=== PATIENT | male | born 1955 | race African-American/Black ===

== ENCOUNTER 2021-09-28 08:09 | Emergency (ER) | payer MEDICARE, MEDICAID, SELFPAY ==
--- NOTE | 2021-09-28 | ECG_ITS ---
Test Reason : chest pain Blood Pressure : / mmHG Vent. Rate : 107 BPM Atrial Rate : 357 BPM P-R Int : 000 ms QRS Dur : 084 ms QT Int : 344 ms P-R-T Axes : -43 -57 128 degrees QTc Int : 459 ms Atrial flutter with variable A-V block with premature ventricular or aberrantly conducted complexes Left axis deviation Inferior infarct , age undetermined Possible Anterior infarct , age undetermined ST & T wave abnormality, consider lateral ischemia Abnormal ECG No previous ECGs available Referred By: Jaclyn Huntley Electronically Signed By:JAIME ARNDT MD
--- NOTE | ~2021-09-28 | XR_ITS ---
EXAMINATION: XR CHEST CLINICAL INFORMATION: Chest pain. COMPARISON: None TECHNIQUE: Portable AP view of the chest was obtained. XR/XR chest 1V FINDINGS/IMPRESSION: The study is limited by portable technique, suboptimal inspiration, and overlying leads. Linear at the left base is felt more likely to represent atelectasis and/or fibrotic change rather than infiltrate. No infiltrate, effusion, or pneumothorax is appreciated as such. The cardiac silhouette is poorly evaluated. The aorta is mildly atherosclerotic. Mediastinum, diaphragm and soft tissues appear unremarkable. Surgical clips project over the right upper quadrant. The patient is status post metallic fixation plate and screw placement across the distal left clavicle.
[2021-09-28 08:21] VITALS: BP 172/101; BP 175/102; PULSE 103; PULSE 113; RESP 16; TEMP 36.2; O2SAT 97; BMI 18.3
--- NOTE | 2021-09-28 08:43 | ED.CHESTPAIN ---
HPI - Chest Pain General Chief Complaint: Chest Pain Stated Complaint: CP DURING DIALYSIS,2/3 OF DIALYSIS COMP PER EMS Time Seen by Provider: 09/28/21 08:37 Source: patient Mode of arrival: EMS Limitations: other (poor historian) History of Present Illness HPI narrative: 66 yo male hx of afib, HTN, STEMI in past, ESRD on HD MWF, chronic back pain was undergoing HD today completed 2/3 when he c/o chest pain - he cannot tell me much about the chest pain. He seems upset he is here. EMS notes he is at his baseline per HD center. Was given nitro SL with EMS with some improvement. MD complaint: chest pain Pertinent past history: coronary artery disease and prior [place] Onset (ago): minute(s) (prior to arrival ) Timing of current episode: other (improving) Prior episodes: Yes Onset: during rest Pain location: substernal (points to middle of his chest) Pain radiation: none Severity: mild Quality: other ( Pain ) Relieving factors: nitroglycerin (unsure but states it might have helped) Exacerbating factors: nothing Associated symptoms: other (patient denies, does state he doesn't normally have chest pain during HD) Treatment prior to arrival: nitroglycerin Related Data Allergies Allergy/AdvReac Type Severity Reaction Status Date / Time No Known Allergies Allergy Verified 09/28/21 08:34 Review of Systems Review of Systems: ROS unable to be obtained due to pateint being poor historian seems upset he is here PMF Past Medical History Source: old records reviewed Medical History Acute CVA (cerebrovascular accident) Afib Anemia BPH (benign prostatic hyperplasia) Chronic back pain ESRD (end stage renal disease) HTN (hypertension) Opiate dependence Pneumothorax Pulmonary hypertension STEMI (ST elevation myocardial infarction) Surgical History H/O splenectomy Hx of cholecystectomy Social History Social History (Updated 09/28/21 @ 08:45 by Jaclyn Huntley DO) Alcohol intake: former Patient Tobacco Use Status: Former Tobacco user Use of substances other than those prescribed or required for medical reasons: Unknown Advance Directives: No Advance Directives Information Provided: No Physical Exam Vital Signs: Vital Signs: Last Vital Signs Temp 97.2 F 09/28/21 08:21 Pulse 93 09/28/21 11:38 Resp 18 09/28/21 11:38 BP 156/109 H 09/28/21 11:38 Pulse Ox 96 09/28/21 11:38 O2 Del Method 09/28/21 11:38 BMI result Body Mass Index 18.3 Appearance: Alert. Oriented to self. No acute distress. Upset and appears angry he is here, watching TV had to be asked questions repeatedly EMS states he is at his baseline mentation. Eyes: Pupils equal, round and reactive to light. ENT: Pharynx normal. Neck: Normal inspection. Neck supple. CVS: Normal heart rate and rhythm. Pulses normal. Respiratory: No respiratory distress. Breath sounds normal. Abdomen: Soft and non-tender. Skin: Skin warm and dry. Normal skin color. Normal skin turgor. Extremities: No lower extremity edema. No calf ttp Neuro: Oriented X to self. Will not participate otherwise in exam. Course Course Course Narrative: repeat trop flat, atypical pain patient in no distress eating and watching [place] [facility] [place] wave inversions in lateral leads may 2021 no changes on today's EKG Procedures EJ/Peripheral Line Arm R: Time Out Performed: Yes Skin Cleansed in Sterile Fashion: Yes Size (gauge): 20 IV Secured and Dressing Applied: Yes Patient Tolerated Procedure: well and no complications MDM - Chest Pain MDM Narrative Medical decision making narrative: 66 yo male hx of afib, HTN, STEMI in past, ESRD on HD MWF, chronic back pain here with c/o vague chest pain during HD today did complete 2/3 at this time will need troponin x 2, nitro paste given BP and pain, EKG, CXR. Dispo per results and findings. Lab Data Result diagrams: 09/28/21 09:11 09/28/21 11:36 Labs: Lab Results 09/28/21 09/28/21 09/28/21 Range/Units 09:11 09:11 09:11 WBC 9.5 (4.8-10.8) X10*3/uL RBC 4.54 L (4.60-5.80) X10*6/uL Hgb 12.5 L (14.0-18.0) g/dl Hct 37.8 L (42.0-52.0) % MCV 83.3 (80.0-98.0) fL MCH 27.5 (27.0-33.0) pg MCHC 33.1 (31.0-36.0) g/dl RDW 14.5 (11.0-16.0) % Plt Count 280 (160-400) X10*3/uL MPV 10.9 (9.4-12.4) fL Immature Gran % (Auto) 0.2 (0.0-0.4) % Neut % (Auto) 78.4 H (45-73) % Lymph % (Auto) 13.3 L (20-40) % Webb % (Auto) 7.5 (2-11) % Eos % (Auto) 0.4 (0-4) % Baso % (Auto) 0.2 (0-2) % Lymph # (Auto) 1.3 (1.2-4.9) X10*3/uL Webb # (Auto) 0.7 (0.1-1.2) X10*3/uL Eos # (Auto) 0.0 (0.0-0.4) X10*3/uL Baso # (Auto) 0.0 (0.0-0.2) X10*3/uL Abs Immat Gran (auto) 0.02 (0.00-0.03) X10*3/uL Absolute Neuts (auto) 7.5 (2.0-8.3) x10*3/uL Absolute Nucleated RBC 0.000 (0.0-0.012) X10*3/uL Nucleated RBC % (auto) 0.0 (0.0-0.2) /100WBC PT 16.3 H (9.9-13.0) SEC INR 1.4 H (0.9-1.1) Sodium (135-145) mmol/L Potassium (3.3-5.1) mmol/L Chloride (96-108) mmol/L Carbon Dioxide (22-29) mmol/L Anion Gap (12-20) BUN (9-16) mg/dL Creatinine (0.5-1.4) mg/dL Estim Creat Clear Calc Estimated GFR Random Glucose (60-115) mg/dL Calcium (8.4-10.2) mg/dL Magnesium (1.6-2.6) mg/dL Total Bilirubin (0.0-1.0) mg/dL Direct Bilirubin (0.0-0.5) mg/dL AST (5-37) U/L ALT (0-40) U/L Alkaline Phosphatase (39-117) U/L Troponin I High Sens 31.4 (<3.5-35.0) ng/L Total Protein (6.5-8.0) g/dL Albumin (3.5-5.0) g/dL Lipase (8-78) U/L COVID-19 (DEISI) (Negative) COVID-19 Clin Com 09/28/21 09/28/21 09/28/21 Range/Units 09:13 11:36 11:36 WBC (4.8-10.8) X10*3/uL RBC (4.60-5.80) X10*6/uL Hgb (14.0-18.0) g/dl Hct (42.0-52.0) % MCV (80.0-98.0) fL MCH (27.0-33.0) pg MCHC (31.0-36.0) g/dl RDW (11.0-16.0) % Plt Count (160-400) X10*3/uL MPV (9.4-12.4) fL Immature Gran % (Auto) (0.0-0.4) % Neut % (Auto) (45-73) % Lymph % (Auto) (20-40) % Webb % (Auto) (2-11) % Eos % (Auto) (0-4) % Baso % (Auto) (0-2) % Lymph # (Auto) (1.2-4.9) X10*3/uL Webb # (Auto) (0.1-1.2) X10*3/uL Eos # (Auto) (0.0-0.4) X10*3/uL Baso # (Auto) (0.0-0.2) X10*3/uL Abs Immat Gran (auto) (0.00-0.03) X10*3/uL Absolute Neuts (auto) (2.0-8.3) x10*3/uL Absolute Nucleated RBC (0.0-0.012) X10*3/uL Nucleated RBC % (auto) (0.0-0.2) /100WBC PT (9.9-13.0) SEC INR (0.9-1.1) Sodium 138 (135-145) mmol/L Potassium 3.8 (3.3-5.1) mmol/L Chloride 92 L (96-108) mmol/L Carbon Dioxide 33 H (22-29) mmol/L Anion Gap 17 (12-20) BUN 29 H (9-16) mg/dL Creatinine 4.57 H* (0.5-1.4) mg/dL Estim Creat Clear Calc 14.1 Estimated GFR 13 Random Glucose 140 H (60-115) mg/dL Calcium 9.8 (8.4-10.2) mg/dL Magnesium 2.1 (1.6-2.6) mg/dL Total Bilirubin 0.7 (0.0-1.0) mg/dL Direct Bilirubin 0.3 (0.0-0.5) mg/dL AST 14 (5-37) U/L ALT 12 (0-40) U/L Alkaline Phosphatase 91 (39-117) U/L Troponin I High Sens 30.1 (<3.5-35.0) ng/L Total Protein 7.9 (6.5-8.0) g/dL Albumin 4.3 (3.5-5.0) g/dL Lipase 11 (8-78) U/L COVID-19 (DEISI) Negative (Negative) COVID-19 Clin Com See Note ECG Data ECG #1: Attestation: I personally reviewed and interpreted this ECG as follows: ECG interpretation date: 09/28/21 ECG interpretation time: 08:49 Interpretation: Rate: 107 Rhythm: afib with PVCs Buckley: left Normal QRS complex. ST T wave : nonspecific no ZULLY qTC: normal prior studies: sig artifact noted, none available The study has been interpreted contemporaneously by me. . ECG #2: Attestation: I personally reviewed and interpreted this ECG as follows: ECG interpretation date: 09/28/21 ECG interpretation time: 12:37 Interpretation: Rate: 97 Rhythm: afib with PVCs Buckley: left Normal QRS complex. ST T wave : no ZULLY, nonspecific artifact noted qTC: normal prior studies: no sig change from prior less artifact noted The study has been interpreted contemporaneously by me. . Discharge Plan Discharge Clinical Impression: Chest pain Patient Disposition: Xfer SNF Transfer Details: [facility] Instructions: Chest Pain (ED) Additional Instructions: return to ED for any worsening symptoms or concerns two troponins are flat, EKG afib, CXR negative, negative for COVID follow up with his doctor and meter installer and remover this week or next
[2021-09-28 09:23] LABS: MANUAL DIFF FLAG NO
[2021-09-28 09:24] LABS: Basophils Percent Auto 0.2 % (0-2); Eosinophils Percent Auto 0.4 % (0-4); Hematocrit 37.8 % (42.0-52.0); Hemoglobin 12.5 g/dl (14.0-18.0); Imm Gran Abs Auto 0.02 X10*3/uL (0.00-0.03); Imm Gran Pct Auto 0.2 % (0.0-0.4); Lymphocytes Absolute Auto 1.3 X10*3/uL (1.2-4.9); Lymphocytes Percent Auto 13.3 % (20-40); Mean Corpuscular HGB Conc 33.1 g/dl (31.0-36.0); Mean Corpuscular Hemoglobin 27.5 pg (27.0-33.0); Mean Corpuscular Volume 83.3 fL (80.0-98.0); Mean Platelet Volume 10.9 fL (9.4-12.4); Monocytes Absolute Auto 0.7 X10*3/uL (0.1-1.2); Monocytes Percent Auto 7.5 % (2-11); Neutrophils Absolute Auto 7.5 x10*3/uL (2.0-8.3); Neutrophils Percent Auto 78.4 % (45-73); Platelet Count 280 X10*3/uL (160-400); Red Blood Count 4.54 X10*6/uL (4.60-5.80); Red Cell Distribution Width 14.5 % (11.0-16.0); White Blood Count 9.5 X10*3/uL (4.8-10.8)
[2021-09-28] MEDS: Nitroglycerin 2 % Oint 1 GM Packet 1 INCH TRANSDERMA (09:30)
[2021-09-28 09:34] VITALS: BP 170/107; PULSE 100; PULSE 109; RESP 16; O2SAT 96
--- NOTE | 2021-09-28 09:37 | PC.NURSE ---
Pt alert/oriented to self. Pt reports left chest 5/10 pain while at dialysis. DIfficult to fully assess pt as he answers some questions asked and is disoriented. A fib on tele, occasional PVCs noted. +bruit and thrill to LAVF. Pressure dsg remains intact. Right sided peripheral line ultrasound guided by Dr Huntley placed. voided 200ml of dark urine. Nitro to left chest.
[2021-09-28 09:39] LABS: INTERNATIONAL NORM RATIO 1.4 (0.9-1.1); Prothrombin Time 16.3 SEC (9.9-13.0)
[2021-09-28 09:40] LABS: COVID-19 Test Negative (Negative)
[2021-09-28 09:43] LABS: Troponin-I High Sensitivity 31.4 ng/L (<3.5-35.0)
[2021-09-28 11:38] VITALS: BP 156/109; PULSE 93; RESP 18; O2SAT 96
--- NOTE | 2021-09-28 11:39 | PC.NURSE ---
repeat trop and chemistry drawn/sent Pt states cp is 6/10 at this time. Nitro remains to left chest. Afib on tele, rate 90-110
[2021-09-28 12:13] LABS: Troponin-I High Sensitivity 30.1 ng/L (<3.5-35.0)
[2021-09-28 12:24] LABS: Alanine Aminotransferase 12 U/L (0-40); Albumin Level 4.3 g/dL (3.5-5.0); Alkaline Phosphatase 91 U/L (39-117); Anion Gap 17 (12-20); Aspartate Amino Transferase 14 U/L (5-37); Bilirubin Direct 0.3 mg/dL (0.0-0.5); Bilirubin Total 0.7 mg/dL (0.0-1.0); Blood Urea Nitrogen 29 mg/dL (9-16); Calcium 9.8 mg/dL (8.4-10.2); Carbon Dioxide 33 mmol/L (22-29); Chloride 92 mmol/L (96-108); Creatinine Clr Calc Pharmacy 14.1; Estimated Glomerular Filt Rate 13; Glucose Random 140 mg/dL (60-115); Lipase 11 U/L (8-78); Magnesium 2.1 mg/dL (1.6-2.6); Potassium 3.8 mmol/L (3.3-5.1); Sodium 138 mmol/L (135-145); Total Protein 7.9 g/dL (6.5-8.0)
--- NOTE | 2021-09-28 12:28 | ECG_ITS ---
Test Reason : repeat chest pain Blood Pressure : / mmHG Vent. Rate : 097 BPM Atrial Rate : 000 BPM P-R Int : 000 ms QRS Dur : 090 ms QT Int : 374 ms P-R-T Axes : 000 -56 201 degrees QTc Int : 474 ms Atrial fibrillation with premature ventricular or aberrantly conducted complexes Left axis deviation Inferior infarct (cited on or before 28-SEP-2021) Possible Anterior infarct (cited on or before 28-SEP-2021) T wave abnormality, consider lateral ischemia Abnormal ECG When compared with ECG of 28-SEP-2021 08:14, Atrial fibrillation has replaced Atrial flutter Serial changes of Anterior infarct Present Referred By: Jaclyn Huntley Electronically Signed By:JAIME ARNDT MD
--- NOTE | 2021-09-28 12:41 | PC.NURSE ---
CALL PLACED TO [facility] PT TX LINE AT DR GRUBER REQUEST @ THIS TIME SILVER ANSWERS, TAKES PT INFO AND ASKS TO SPEAK WITH DR GRUBER
--- NOTE | 2021-09-28 13:25 | PC.NURSE ---
This RN gave nurse to nurse to Jesika at [facility] in [place], pt awaits tansport back to facility
[2021-09-28 13:59] VITALS: RESP 15; TEMP 36.7; O2SAT 100
[2021-09-28 15:55] VITALS: BP 182/105; PULSE 97; RESP 18; O2SAT 95
--- NOTE | 2021-09-28 17:24 | PC.NURSE ---
Per EMS pt was supposed to be transfered at 1730 but per ems there are no wheelchair vands will call back with a ETA
--- NOTE | 2021-09-28 18:42 | MHC.CM.ED ---
Addendum entered by Sharri Sandoval 09/28/21 20:16: CM called [facility] for eta, not C. Per [place], transport is on the way. PT1 classification that pt does not need assistance. Pt escorted to [facility] for [facility]. CM in attendance. Car transport arrived. Per emergency medical technician/driver, he called [facility] and they requested he call them on arrival and they will come and get the patient. D/C paperwork reviewed by CINDY Zaragoza. Pt was able to enter car unassisted. Original Note: Pt is awaiting transfer via W/C van via [facility]. 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 Pt needs transport to [facility] in [place]. ED Rn Telephone Triage received t/c that transport would be delayed, no W/C van available. 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 Pt aware. CM to follow for d/c needs.
== END 2021-09-28 20:01 | disposition skilled nursing facility (03) ==
PROVIDERS: Emergency Provider Emergency Medicine
DX: R07.89 Other chest pain (principal); I12.0 Hypertensive chronic kidney disease with stage 5 chronic kidney disease or end stage renal disease; N18.6 End stage renal disease; Z99.2 Dependence on renal dialysis; Z20.822 Contact with and (suspected) exposure to COVID-19; Z79.899 Other long term (current) drug therapy
CPT/HCPCS: 36415; 71045; 80048; 80076; 83690; 83735; 84484; 85025; 85610; 87635; 93005; 99284

== ENCOUNTER 2022-01-16 10:15 | Emergency (ER) | payer MEDICARE, MEDICAID, SELFPAY ==
--- NOTE | ~2022-01-16 | CT_ITS ---
EXAMINATION: CT ABDOMEN AND PELVIS WITHOUT CONTRAST CLINICAL INFORMATION: Abdominal pain. Unwitnessed fall. COMPARISON: None TECHNIQUE: Multidetector volumetric imaging was performed from the superior aspect of the liver through the pubic symphysis. Sagittal and coronal reformatted images were obtained on the technologist's workstation. This CT examination was performed using dose optimization techniques as appropriate, variously including the following: *Automated exposure control *Adjustment of mA and/or kV according to patient size (this includes techniques or standardized protocols for targeted exams where dose is matched to indication/reason for exam; i.e. extremities or head) *Use of iterative reconstruction technique DLP: 365 mGy-cm FINDINGS: LIVER, GALLBLADDER, AND BILIARY TREE: The liver is normal in size, shape, and attenuation. There is severe intra and extrahepatic biliary duct dilatation. The common bile duct measures 2.3 cm and is dilated down to the head of the pancreas. The gallbladder is not seen and is presumably been removed. PANCREAS: There are innumerable small calcifications in the pancreas suggestive of chronic pancreatitis. The main pancreatic duct is dilated measuring 6 mm. The pancreas appears prominent, heterogeneous in attenuation with multiple small cystic areas and is difficult to exclude a mass in the pancreas, particularly in the head and uncinate process of the pancreas. SPLEEN: The spleen is absent. There are multiple splenules seen in the left upper quadrant. ADRENAL GLANDS: Both adrenal glands appear prominent and low in attenuation particularly the left questionable for adrenal hyperplasia. KIDNEYS AND URETERS: The right kidney is atrophic appearing. There are bilateral renal cysts, right greater than left. No imaging follow-up. BLADDER: Unremarkable. GASTROINTESTINAL TRACT: Stool throughout the colon. Small and large bowel are otherwise unremarkable. Normal appendix. Normal stomach. No ascites or free air. ABDOMINAL WALL: No significant hernia is appreciated. LYMPH NODES: Small upper abdominal retroperitoneal lymph nodes, some partially calcified. VASCULAR: Atherosclerotic disease. PELVIC VISCERA: Enlarged prostate gland. OSSEOUS STRUCTURES: There is degenerative disc disease at L5-S1. No fracture. CT/CT abdomen pelvis wo IV con IMPRESSION: No acute findings. Severe intra and extrahepatic biliary duct dilatation. Abnormal appearing pancreas. Evidence of chronic pancreatitis and dilated main pancreatic duct. It is difficult to exclude a pancreatic mass. Follow-up CT or MR of the pancreas with and without contrast and MRCP recommended. Enlarged prostate gland. Atrophic right kidney. Bilateral renal cysts. Absent spleen and splenules. Probable adrenal gland hyperplasia. Fleischner guidelines were followed.
--- NOTE | ~2022-01-16 | CT_ITS ---
EXAMINATION: HEAD AND CERVICAL SPINE CT WITHOUT CONTRAST CLINICAL INFORMATION: Unwitnessed fall at dialysis COMPARISON: None TECHNIQUE: Axial images through the head and cervical spine without contrast. Sagittal and coronal reconstructions on the technologist workstation were performed. This CT examination was performed using dose optimization techniques as appropriate, variously including the following: *Automated exposure control *Adjustment of mA and/or kV according to patient size (this includes techniques or standardized protocols for targeted exams where dose is matched to indication/reason for exam; i.e. extremities or head) *Use of iterative reconstruction technique DLP 400+7 5 2 mg/cm FINDINGS: Head CT: There is no evidence of an extra-axial collection. There is no evidence of intra-axial or extra-axial hemorrhage. The ventricles and extra-axial CSF spaces are prominent suggestive of generalized atrophy. There is nonspecific periventricular white matter disease. There is an old left periventricular white matter and subcortical white matter infarct in the left frontoparietal region. No mass, mass effect or acute infarct is seen. No skull fracture is seen. Visualized paranasal sinuses, mastoid air cells and middle ears are clear. Cervical spine CT: Exam is limited due to motion artifact. There is curvature of the cervical spine to the left and head tilt to the right. Alignment is otherwise normal. No fracture or dislocation is seen. There is degenerative spondylosis and degenerative disc disease at C4-C5, C5-C6 and C6-C7. There are degenerative changes at the C1 dens articulation. Prevertebral soft tissues are normal. There is bilateral carotid calcification. There may be a 1 cm right thyroid nodule. No follow-up needed based on patient age and nodule size. There are emphysematous changes at the lung apices. CT/CT cervical spine wo IV con IMPRESSION: Head CT: No acute findings. Generalized atrophy and nonspecific periventricular white matter disease. Old left periventricular and some cortical white matter left frontal parietal infarct. Cervical spine: Limited due to motion artifact. Curvature of the mid cervical spine to the left and head tilt to the right. Degenerative changes. No fracture is seen.
--- NOTE | ~2022-01-16 | CT_ITS ---
EXAMINATION: CT CHEST WITHOUT CONTRAST CLINICAL INFORMATION: Shortness of breath and pain. Unwitnessed fall. COMPARISON: Previous chest x-ray from earlier the same day TECHNIQUE: Multidetector volumetric CT imaging of the chest was done. Axial MIP volume rendering provided. Sagittal and coronal reformatted images were obtained. This CT examination was performed using dose optimization techniques as appropriate, variously including the following: *Automated exposure control *Adjustment of mA and/or kV according to patient size (this includes techniques or standardized protocols for targeted exams where dose is matched to indication/reason for exam; i.e. extremities or head) *Use of iterative reconstruction technique DLP: 186 mGy-cm FINDINGS: LOCKS INSPECTOR: LUNGS: There is evidence of emphysema. There is a surgical staple line at the right lung apex. There is a heterogeneous 1 cm groundglass attenuation nodule in the left upper lobe Axial image 104 series 30. There is a 1.8 x 2.8 cm cystic or ectatic in the right upper lobe axial image 227 series 30. There is subsegmental atelectasis at the left lung base. MEDIASTINUM: The heart is enlarged. There is no pericardial effusion. The thoracic aorta is normal in caliber. The pulmonary arteries are prominent main pulmonary artery or centimeters questionable for pulmonary artery hypertension. Small mediastinal lymph nodes. 1 cm right thyroid nodule. CORONARY ARTERY CALCIFICATION: Mild PLEURA: There is no pleural effusion. No pleural mass or thickening. AXILLA: No lymphadenopathy. UPPER ABDOMEN: See abdominal and pelvic CT report from the same day. OSSEOUS STRUCTURES: There are bilateral old-appearing rib fractures. No acute rib fracture. There are degenerative changes of the spine. CT/CT chest wo IV con IMPRESSION: No acute findings. Severe emphysema. 1 cm left upper lobe groundglass attenuation nodule and 2 x 3 cm cystic or bronchiectatic area in the right upper lobe. Six-month imaging follow-up recommended. Enlarged heart and coronary artery calcification. Enlarged pulmonary arteries questionable for pulmonary artery hypertension. Fleischner guidelines were followed.
--- NOTE | ~2022-01-16 | XR_ITS ---
EXAMINATION: XR CHEST CLINICAL INFORMATION: Cough COMPARISON: 09/28/2021. TECHNIQUE: AP upright portable view of the chest was obtained. 12:19 PM patient slightly rotated to the right. FINDINGS: Emphysematous change noted. There is a vertical linear shadow at the left base which may reflect atelectatic change or parenchymal scar. No distinct airspace consolidation or vascular congestion. The pleural surfaces appear to be stable. There has been previous fixation of the distal left clavicle. XR/XR chest 1V IMPRESSION: No new dominant consolidation. Vertical linear atelectasis or scar at the left base. Emphysematous change.
--- NOTE | ~2022-01-16 | US_ITS ---
EXAMINATION: US ABDOMEN LIMITED CLINICAL INFORMATION: Biliary duct dilatation. COMPARISON: None TECHNIQUE: Real-time imaging of the right upper quadrant abdominal viscera. FINDINGS: PANCREAS: Not seen due to bowel gas LIVER: Liver echotexture is normal. The liver is normal in size and shape. There is a 1.5 x 1.3 x 1.1 cm hyperechoic lesion in the right lobe of the liver. No other focal liver lesion. There is severe intra and extrahepatic biliary duct dilatation. GALLBLADDER: The gallbladder is been removed. COMMON BILE DUCT: Common bile duct measures between 1.8 and 2.3 cm. No common bile duct stone is appreciated by ultrasound. RIGHT KIDNEY: The right kidney is small. There are multiple right renal cysts, largest measuring 1.2 cm. No hydronephrosis. The kidney measures 7 cm in maximum dimension. FREE FLUID: None. US/US abdomen limited IMPRESSION: Severe intra and extrahepatic biliary duct dilatation. 1.5 x 1.3 x 1.1 cm echogenic lesion in the right lobe of the liver. Small right kidney and right renal cysts. Pancreas not seen.
[2022-01-16 10:39] VITALS: BP 136/70; BP 170/132; PULSE 107; PULSE 74; RESP 20; TEMP 37.3; O2SAT 100; BMI 23.3
--- NOTE | 2022-01-16 10:42 | ECG_ITS ---
Test Reason : syncope Blood Pressure : / mmHG Vent. Rate : 101 BPM Atrial Rate : 000 BPM P-R Int : 000 ms QRS Dur : 084 ms QT Int : 396 ms P-R-T Axes : 000 -50 016 degrees QTc Int : 513 ms Poor data quality Atrial fibrillation with rapid ventricular response with premature ventricular or aberrantly conducted complexes Left axis deviation ST & T wave abnormality, consider lateral ischemia Abnormal ECG When compared with ECG of 28-SEP-2021 12:22, Criteria for Inferior infarct are no longer Present Referred By: Parris Mcpherson Electronically Signed By:CATALINO CHAUDHRY MD
[2022-01-16 11:33] LABS: COVID-19 Test Positive (Negative); IDNOW Serial# 16C4AD1C
[2022-01-16 12:17] LABS: MANUAL DIFF FLAG NO
[2022-01-16 12:21] LABS: Basophils Percent Auto 0.4 % (0-2); Eosinophils Absolute Auto 0.3 X10*3/uL (0.0-0.4); Eosinophils Percent Auto 4.5 % (0-4); Hematocrit 35.2 % (42.0-52.0); Hemoglobin 11.4 g/dl (14.0-18.0); Imm Gran Abs Auto 0.05 X10*3/uL (0.00-0.03); Imm Gran Pct Auto 0.7 % (0.0-0.4); Lymphocytes Absolute Auto 0.5 X10*3/uL (1.2-4.9); Mean Corpuscular HGB Conc 32.4 g/dl (31.0-36.0); Mean Corpuscular Volume 86.5 fL (80.0-98.0); Mean Platelet Volume 10.4 fL (9.4-12.4); Monocytes Absolute Auto 0.6 X10*3/uL (0.1-1.2); Monocytes Percent Auto 7.9 % (2-11); NRBC Pct Auto 0.5 /100WBC (0.0-0.2); Neutrophils Percent Auto 79.5 % (45-73); Platelet Count 282 X10*3/uL (160-400); Red Blood Count 4.07 X10*6/uL (4.60-5.80); Red Cell Distribution Width 16.3 % (11.0-16.0); White Blood Count 7.6 X10*3/uL (4.8-10.8)
[2022-01-16 12:25] LABS: INTERNATIONAL NORM RATIO 1.3 (0.9-1.1); Prothrombin Time 15.4 SEC (10.0-13.1)
[2022-01-16 12:29] VITALS: BP 170/132; PULSE 97; RESP 18; TEMP 37.5; O2SAT 96
--- NOTE | 2022-01-16 12:29 | ED_ITS ---
HPI - General Adult General Chief complaint: General Medical Stated complaint: SYNCOPE Time Seen by Provider: 01/16/22 10:42 Source: patient Mode of arrival: ambulatory History of Present Illness HPI narrative: 67-year-old male with history ESRD on dialysis, diabetes, CHF, atrial fibrillation on anticoagulation who is brought in by EMS this morning after he had received dialysis and then complained of some abdominal pain for which the staff there gave the patient some Imodium but then he became nauseous and they subsequently gave him Compazine. Staff then states that he reportedly needed to go to the bathroom and required 2 staff members for assistance and this was a change from his normal 1 assist. Staff did not stay with the patient and instead returned and found patient to be on his knees. Patient is having complaints of abdominal discomfort. Related Data Allergies Allergy/AdvReac Type Severity Reaction Status Date / Time No Known Allergies Allergy Verified 09/28/21 08:34 Review of Systems Review of Systems: Pertinent positives and negatives as stated in HPI 10 point review of system PMFSH Past Medical History Medical History Acute CVA (cerebrovascular accident) Afib Anemia BPH (benign prostatic hyperplasia) Chronic back pain ESRD (end stage renal disease) HTN (hypertension) Opiate dependence Pneumothorax Pulmonary hypertension STEMI (ST elevation myocardial infarction) Surgical History H/O splenectomy Hx of cholecystectomy Social History Social History (Updated 09/28/21 @ 08:45 by Shanell Huntley DO) Alcohol intake: former Patient Tobacco Use Status: Former Tobacco user Advance Directives: No Advance Directives Information Provided: No Physical Exam ED Vital Signs: Vital Signs - 24 hr 01/16/22 10:39 01/16/22 12:29 01/16/22 12:57 Temperature 99.2 F 99.5 F Pulse Rate 107 H 97 109 H Respiratory Rate 20 18 20 Blood Pressure 170/132 H 170/132 H 173/101 H Pulse Oximetry 100 96 99 Oxygen Delivery Method Room Air Room Air Room Air 01/16/22 13:40 Temperature Pulse Rate Respiratory Rate Blood Pressure 155/101 H Pulse Oximetry Oxygen Delivery Method BMI result Body Mass Index 23.3 VITAL SIGNS: Reviewed. GENERAL: Cachectic, chronically ill, in no acute distress. HEAD: Normocephalic/atraumatic EYES: PERRLA, EOMI EARS: Ext canals without abnormality, TMs non-bulging and non-erythematous NOSE: Nares patent bilateral OROPHARYNX: no oral lesions noted, posterior pharynx clear NECK: Supple, no adenopathy LUNGS: Bibasilar rales, mild tachypnea. SpO2<100> CARDIOVASCULAR: Regular rate and rhythm without noted murmurs, no JVD or lower extremity edema. ABDOMEN: Soft, non-tender, non-distended with bowel sounds. MUSCULOSKELETAL: No tenderness, deformities, or effusions noted on gross in spection. EXTREMITIES: No cyanosis, clubbing or edema; thrill and bruit are intact. SKIN: Inspection of the skin reveals no rashes NEUROLOGIC: Alert and oriented x 3. Strength and sensation to light touch were grossly intact x 4. Course Course Course Narrative: 67-year-old male with history and clinical presentation suggestive of possible fall and as patient is on anticoagulation will obtain CT of head and neck, also due to patient complaints abdominal discomfort and noting LFTs are outside of normal range for the patient will proceed with abdomen pelvis CT scan although there is no evidence of leukocytosis. Patient is also noted to be hypertensive and there are rales on clinical exam. Patient also noted to be COVID-19 positive. Review of all investigations consistent with hypertensive urgency. Patient's blood pressure has responded well to nitro paste and review of all imaging s tudies suggest the possibility of pancreatic pathology. Given the patient is end-stage renal disease on dialysis current recommendation is for MRI. Patient is noted to be weakened and COVID-19 positive. In addition there are changes to the LFTs in combination with a CT scan which shows abnormal pancreas. Given the history where the staff at the dialysis center reports that patient has complain ed about abdominal discomfort previously and has had episodes of nausea. This does raise concerns for underlying pathology. 1540: I discussed this case with Dr Larson who is requesting ultrasound of the hepatobiliary system and I offered to add a GGT to better identify the etiology of the alkaline phosphatase. The noted lactic acidosis is likely related to patient's underlying CKD. 1640: Extensive intra/extrahepatic ductal dilatation. Hospitalist informed. Signed out to Dr Cevallos to f/u CMP/LA/GGT. Medical Decision Making Lab Data Result diagrams: 01/16/22 12:11 01/16/22 12:11 Labs: Lab Results 01/16/22 01/16/22 01/16/22 Range/Units 11:19 12:11 12:11 WBC 7.6 (4.8-10.8) X10*3/uL RBC 4.07 L (4.60-5.80) X10*6/uL Hgb 11.4 L (14.0-18.0) g/dl Hct 35.2 L (42.0-52.0) % MCV 86.5 (80.0-98.0) fL MCH 28.0 (27.0-33.0) pg MCHC 32.4 (31.0-36.0) g/dl RDW 16.3 H (11.0-16.0) % Plt Count 282 (160-400) X10*3/uL MPV 10.4 (9.4-12.4) fL Immature Gran % (Auto) 0.7 H (0.0-0.4) % Neut % (Auto) 79.5 H (45-73) % Lymph % (Auto) 7.0 L (20-40) % [place] % (Auto) 7.9 (2-11) % Eos % (Auto) 4.5 H (0-4) % Baso % (Auto) 0.4 (0-2) % Lymph # (Auto) 0.5 L (1.2-4.9) X10*3/uL [place] # (Auto) 0.6 (0.1-1.2) X10*3/uL Eos # (Auto) 0.3 (0.0-0.4) X10*3/uL Baso # (Auto) 0.0 (0.0-0.2) X10*3/uL Abs Immat Gran (auto) 0.05 H (0.00-0.03) X10*3/uL Absolute Neuts (auto) 6.0 (2.0-8.3) x10*3/uL Absolute Nucleated RBC 0.040 H (0.0-0.012) X10*3/uL Nucleated RBC % (auto) 0.5 H (0.0-0.2) /100WBC PT 15.4 H (10.0-13.1) SEC INR 1.3 H (0.9-1.1) Sodium (135-145) mmol/L Potassium (3.3-5.1) mmol/L Chloride (96-108) mmol/L Carbon Dioxide (22-29) mmol/L Anion Gap (12-20) BUN (9-16) mg/dL Creatinine (0.5-1.4) mg/dL Estim Creat Clear Calc Estimated GFR Random Glucose (60-115) mg/dL Lactic Acid (0.5-2.0) mmol/L Calcium (8.4-10.2) mg/dL Total Bilirubin (0.0-1.0) mg/dL GGT (11-51) U/L AST (5-37) U/L ALT (0-40) U/L Alkaline Phosphatase (39-117) U/L Ammonia (13-55) umol/L Troponin I High Sens (<3.5-35.0) ng/L B-Natriuretic Peptide (<100) pg/mL Total Protein (6.5-8.0) g/dL Albumin (3.5-5.0) g/dL COVID-19 (DEISI) Positive A (Negative) COVID-19 Clin Com See Note 01/16/22 01/16/22 01/16/22 Range/Units 12:11 12:11 12:11 WBC (4.8-10.8) X10*3/uL RBC (4.60-5.80) X10*6/uL Hgb (14.0-18.0) g/dl Hct (42.0-52.0) % MCV (80.0-98.0) fL MCH (27.0-33.0) pg MCHC (31.0-36.0) g/dl RDW (11.0-16.0) % Plt Count (160-400) X10*3/uL MPV (9.4-12.4) fL Immature Gran % (Auto) (0.0-0.4) % Neut % (Auto) (45-73) % Lymph % (Auto) (20-40) % [place] % (Auto) (2-11) % Eos % (Auto) (0-4) % Baso % (Auto) (0-2) % Lymph # (Auto) (1.2-4.9) X10*3/uL [place] # (Auto) (0.1-1.2) X10*3/uL Eos # (Auto) (0.0-0.4) X10*3/uL Baso # (Auto) (0.0-0.2) X10*3/uL Abs Immat Gran (auto) (0.00-0.03) X10*3/uL Absolute Neuts (auto) (2.0-8.3) x10*3/uL Absolute Nucleated RBC (0.0-0.012) X10*3/uL Nucleated RBC % (auto) (0.0-0.2) /100WBC PT (10.0-13.1) SEC INR (0.9-1.1) Sodium 141 (135-145) mmol/L Potassium 4.6 D (3.3-5.1) mmol/L Chloride 95 L (96-108) mmol/L Carbon Dioxide 28 (22-29) mmol/L Anion Gap 23 H (12-20) BUN 24 H (9-16) mg/dL Creatinine 4.12 H* (0.5-1.4) mg/dL Estim Creat Clear Calc 15.7 Estimated GFR 15 Random Glucose 139 H (60-115) mg/dL Lactic Acid 3.1 H* (0.5-2.0) mmol/L Calcium 10.5 H D (8.4-10.2) mg/dL Total Bilirubin 0.6 (0.0-1.0) mg/dL GGT 292 H (11-51) U/L AST 88 H (5-37) U/L ALT 65 H (0-40) U/L Alkaline Phosphatase 224 H D (39-117) U/L Ammonia (13-55) umol/L Troponin I High Sens 16.6 (<3.5-35.0) ng/L B-Natriuretic Peptide 2718 H (<100) pg/mL Total Protein 8.5 H (6.5-8.0) g/dL Albumin 4.7 (3.5-5.0) g/dL COVID-19 (DEISI) (Negative) COVID-19 Clin Com 01/16/22 Range/Units 13:41 WBC (4.8-10.8) X10*3/uL RBC (4.60-5.80) X10*6/uL Hgb (14.0-18.0) g/dl Hct (42.0-52.0) % MCV (80.0-98.0) fL MCH (27.0-33.0) pg MCHC (31.0-36.0) g/dl RDW (11.0-16.0) % Plt Count (160-400) X10*3/uL MPV (9.4-12.4) fL Immature Gran % (Auto) (0.0-0.4) % Neut % (Auto) (45-73) % Lymph % (Auto) (20-40) % [place] % (Auto) (2-11) % Eos % (Auto) (0-4) % Baso % (Auto) (0-2) % Lymph # (Auto) (1.2-4.9) X10*3/uL [place] # (Auto) (0.1-1.2) X10*3/uL Eos # (Auto) (0.0-0.4) X10*3/uL Baso # (Auto) (0.0-0.2) X10*3/uL Abs Immat Gran (auto) (0.00-0.03) X10*3/uL Absolute Neuts (auto) (2.0-8.3) x10*3/uL Absolute Nucleated RBC (0.0-0.012) X10*3/uL Nucleated RBC % (auto) (0.0-0.2) /100WBC PT (10.0-13.1) SEC INR (0.9-1.1) Sodium (135-145) mmol/L Potassium (3.3-5.1) mmol/L Chloride (96-108) mmol/L Carbon Dioxide (22-29) mmol/L Anion Gap (12-20) BUN (9-16) mg/dL Creatinine (0.5-1.4) mg/dL Estim Creat Clear Calc Estimated GFR Random Glucose (60-115) mg/dL Lactic Acid (0.5-2.0) mmol/L Calcium (8.4-10.2) mg/dL Total Bilirubin (0.0-1.0) mg/dL GGT (11-51) U/L AST (5-37) U/L ALT (0-40) U/L Alkaline Phosphatase (39-117) U/L Ammonia 19 (13-55) umol/L Troponin I High Sens (<3.5-35.0) ng/L B-Natriuretic Peptide (<100) pg/mL Total Protein (6.5-8.0) g/dL Albumin (3.5-5.0) g/dL COVID-19 (DEISI) (Negative) COVID-19 Clin Com ECG Data Attestation: I personally reviewed and interpreted this ECG as follows: Prior ECG tracings: available for review Interpretation: Atrial fibrillation, HR- 97, no STEMI, QRS/QTC are within normal limits. Discharge Plan Discharge Clinical Impression: Fall, Hypertension, Pulmonary edema, Transaminasemia, Lab test positive for detection of COVID-19 virus, Pancreatic abnormality Patient Disposition: Still a Patient
[2022-01-16 12:44] LABS: B Type Natriuretic Peptide 2718 pg/mL (<100); Troponin-I High Sensitivity 16.6 ng/L (<3.5-35.0)
[2022-01-16 12:57] VITALS: BP 173/101; PULSE 109; RESP 20; O2SAT 99
[2022-01-16] MEDS: Nitroglycerin 2 % Oint 1 GM Packet 0.5 INCH TRANSDERMA (12:58)
[2022-01-16 13:06] LABS: Lactic Acid 3.1 mmol/L (0.5-2.0)
[2022-01-16 13:08] LABS: Alanine Aminotransferase 65 U/L (0-40); Albumin Level 4.7 g/dL (3.5-5.0); Alkaline Phosphatase 224 U/L (39-117); Anion Gap 23 (12-20); Aspartate Amino Transferase 88 U/L (5-37); Bilirubin Total 0.6 mg/dL (0.0-1.0); Blood Urea Nitrogen 24 mg/dL (9-16); Calcium 10.5 mg/dL (8.4-10.2); Carbon Dioxide 28 mmol/L (22-29); Chloride 95 mmol/L (96-108); Creatinine Clr Calc Pharmacy 15.7; Estimated Glomerular Filt Rate 15; Glucose Random 139 mg/dL (60-115); Potassium 4.6 mmol/L (3.3-5.1); Sodium 141 mmol/L (135-145); Total Protein 8.5 g/dL (6.5-8.0)
[2022-01-16 13:40] VITALS: BP 155/101
[2022-01-16 13:56] LABS: Ammonia 19 umol/L (13-55)
[2022-01-16 14:15] LABS: Reflex Lactate? Lactic Acid Added
[2022-01-16 16:16] LABS: Gamma Glutamyl Transpeptidase 292 U/L (11-51)
--- NOTE | 2022-01-16 17:21 | PHA.MEDREC ---
Pharmacy Consult ? Medication Reconciliation Pharmacy has completed the medication reconciliation. PATIENT FORM [facility]. MEDS BASED ON DIALYSIS SCHEDULE
[2022-01-16 18:13] LABS: ~Lactic Acid-LAB USE ONLY 3.2 mmol/L (0.5-2.0)
[2022-01-16 18:14] LABS: Alanine Aminotransferase 80 U/L (0-40); Albumin Level 4.4 g/dL (3.5-5.0); Alkaline Phosphatase 230 U/L (39-117); Anion Gap 23 (12-20); Aspartate Amino Transferase 111 U/L (5-37); Bilirubin Total 0.5 mg/dL (0.0-1.0); Blood Urea Nitrogen 27 mg/dL (9-16); Calcium 10.2 mg/dL (8.4-10.2); Carbon Dioxide 28 mmol/L (22-29); Chloride 94 mmol/L (96-108); Creatinine Clr Calc Pharmacy 14.1; Estimated Glomerular Filt Rate 13; Glucose Random 106 mg/dL (60-115); Potassium 4.6 mmol/L (3.3-5.1); Sodium 140 mmol/L (135-145); Total Protein 8.1 g/dL (6.5-8.0)
--- NOTE | 2022-01-16 18:18 | ED_ITS ---
HPI - General Adult General Chief complaint: General Medical Stated complaint: SYNCOPE Time Seen by Provider: 01/16/22 10:42 Source: patient Mode of arrival: ambulatory Related Data Home Medications Medication Instructions Recorded Confirmed acetaminophen 325 mg tablet 650 mg PO Q6H PRN Pain (Scale 01/16/22 01/16/22 Score 1-3) apixaban 2.5 mg tablet 2.5 mg PO MOWEFR@0900 01/16/22 01/16/22 apixaban 2.5 mg tablet (Eliquis) 2.5 mg PO SUTUTHSA@0900 01/16/22 01/16/22 apixaban 2.5 mg tablet (Eliquis) 2.5 tab PO SUTUTHSA@2100 01/16/22 01/16/22 atorvastatin 80 mg tablet 40 mg PO BEDTIME 01/16/22 01/16/22 bisacodyl 10 mg rectal suppository 10 mg [place] DAILY PRN Constipation 01/16/22 01/16/22 carvedilol 12.5 mg tablet 12.5 mg PO MOWEFR@0900 01/16/22 01/16/22 carvedilol 12.5 mg tablet 12.5 mg PO SUTUTHSA@0900 01/16/22 01/16/22 carvedilol 12.5 mg tablet 12.5 mg PO SUTUTHSA@2100 01/16/22 01/16/22 famotidine 20 mg tablet (Pepcid) 20 mg PO DAILY 01/16/22 01/16/22 gabapentin 100 mg capsule 100 mg PO TID 01/16/22 01/16/22 glucagon HCl 1 mg solution for 1 mg subcut Q20M PRN bg <60 and 01/16/22 01/16/22 injection (Glucagon (HCl) unresponsive Emergency Kit) insulin glargine 100 unit/mL 8 unit subcut BEDTIME 01/16/22 01/16/22 subcutaneous solution (Lantus U-100 Insulin) insulin lispro 100 unit/mL 1 sliding scale dose subcut BIDAC 01/16/22 01/16/22 subcutaneous solution (Humalog U-100 Insulin) ipratropium 20 mcg-albuterol 100 1 puff inhalation QID 01/16/22 01/16/22 mcg/actuation mist for inhalation (Combivent Respimat) [id number] 1 cap PO BID@1400,2000 01/16/22 01/16/22 5,000-17,000-24,000 unit capsule, delayed rel (Zenpep) [id number]-[id number] 1 cap PO MOWEFR@0600 01/16/22 01/16/22 5,000-17,000-24,000 unit capsule, delayed rel (Zenpep) [id number] 1 cap PO SUTUTHSA@0900 01/16/22 01/16/22 5,000-17,000-24,000 unit capsule, delayed rel (Zenpep) nicotine (polacrilex) 2 mg gum 2 mg buccal Q2H PRN Nicotine 01/16/22 01/16/22 Cravings nifedipine 60 mg tablet,extended 60 mg PO MOWEFR@0900 01/16/22 01/16/22 release nifedipine 60 mg tablet,extended 60 mg PO SUTUTHSA@89901/16/22 01/16/22 release nifedipine 60 mg tablet,extended 60 mg PO SUTUTHSA@209901/16/22 01/16/22 release nitroglycerin 0.4 mg sublingual 0.4 mg sublingual Q5M PRN chest 01/16/22 01/16/22 tablet pain oxycodone 5 mg tablet 5 mg PO Q6H PRN Pain (Scale Score 01/16/22 01/16/22 4-6) sertraline 25 mg tablet 25 mg PO DAILY 01/16/22 01/16/22 sertraline 50 mg tablet 50 mg PO DAILY 01/16/22 01/16/22 ticagrelor 90 mg tablet 90 mg PO MOWEFR@0900 01/16/22 01/16/22 ticagrelor 90 mg tablet 90 mg PO SUTUTHSA@0901/16/22 01/16/22 ticagrelor 90 mg tablet 90 mg PO SUTUTHSA@209901/16/22 01/16/22 tizanidine 4 mg tablet 1 tab PO BID@1300,1700 01/16/22 01/16/22 tizanidine 4 mg tablet 1 tab PO MOWEFR@0600 01/16/22 01/16/22 tizanidine 4 mg tablet 1 tab PO SUTUTHSA@0900 01/16/22 01/16/22 vitamin B complex-vitamin C-folic 1 tab PO DAILY 01/16/22 01/16/22 acid 0.8 mg tablet white petrolatum-mineral oil 1 appl topical QID PRN Dry Skin 01/16/22 01/16/22 topical cream Allergies Allergy/AdvReac Type Severity Reaction Status Date / Time No Known Allergies Allergy Verified 09/28/21 08:34 [facility] Past Medical History Medical History Acute CVA (cerebrovascular accident) Afib Anemia BPH (benign prostatic hyperplasia) Chronic back pain ESRD (end stage renal disease) HTN (hypertension) Opiate dependence Pneumothorax Pulmonary hypertension STEMI (ST elevation myocardial infarction) Surgical History H/O splenectomy Hx of cholecystectomy Social History Social History (Updated 09/28/21 @ 08:45 by Shanell Huntley DO) Alcohol intake: former Patient Tobacco Use Status: Former Tobacco user Advance Directives: No Advance Directives Information Provided: No Physical Exam ED Vital Signs: Vital Signs - 24 hr 01/16/22 10:39 01/16/22 12:29 01/16/22 12:57 Temperature 99.2 F 99.5 F Pulse Rate 107 H 97 109 H Respiratory Rate 20 18 20 Blood Pressure 170/132 H 170/132 H 173/101 H Pulse Oximetry 100 96 99 Oxygen Delivery Method Room Air Room Air Room Air 01/16/22 13:40 Temperature Pulse Rate Respiratory Rate Blood Pressure 155/101 H Pulse Oximetry Oxygen Delivery Method BMI result Body Mass Index 23.3 Medical Decision Making Lab Data Result diagrams: 01/16/22 12:11 01/16/22 17:40 Labs: Lab Results 01/16/22 01/16/22 01/16/22 Range/Units 11:19 12:11 12:11 WBC 7.6 (4.8-10.8) X10*3/uL RBC 4.07 L (4.60-5.80) X10*6/uL Hgb 11.4 L (14.0-18.0) g/dl Hct 35.2 L (42.0-52.0) % MCV 86.5 (80.0-98.0) fL MCH 28.0 (27.0-33.0) pg MCHC 32.4 (31.0-36.0) g/dl RDW 16.3 H (11.0-16.0) % Plt Count 282 (160-400) X10*3/uL MPV 10.4 (9.4-12.4) fL Immature Gran % (Auto) 0.7 H (0.0-0.4) % Neut % (Auto) 79.5 H (45-73) % Lymph % (Auto) 7.0 L (20-40) % Freestone % (Auto) 7.9 (2-11) % Eos % (Auto) 4.5 H (0-4) % Baso % (Auto) 0.4 (0-2) % Lymph # (Auto) 0.5 L (1.2-4.9) X10*3/uL Freestone # (Auto) 0.6 (0.1-1.2) X10*3/uL Eos # (Auto) 0.3 (0.0-0.4) X10*3/uL Baso # (Auto) 0.0 (0.0-0.2) X10*3/uL Abs Immat Gran (auto) 0.05 H (0.00-0.03) X10*3/uL Absolute Neuts (auto) 6.0 (2.0-8.3) x10*3/uL Absolute Nucleated RBC 0.040 H (0.0-0.012) X10*3/uL Nucleated RBC % (auto) 0.5 H (0.0-0.2) /100WBC PT 15.4 H (10.0-13.1) SEC INR 1.3 H (0.9-1.1) Sodium (135-145) mmol/L Potassium (3.3-5.1) mmol/L Chloride (96-108) mmol/L Carbon Dioxide (22-29) mmol/L Anion Gap (12-20) BUN (9-16) mg/dL Creatinine (0.5-1.4) mg/dL Estim Creat Clear Calc Estimated GFR Random Glucose (60-115) mg/dL Lactic Acid (0.5-2.0) mmol/L Lactic Acid F/U @ 2Hr (0.5-2.0) mmol/L Calcium (8.4-10.2) mg/dL Total Bilirubin (0.0-1.0) mg/dL GGT (11-51) U/L AST (5-37) U/L ALT (0-40) U/L Alkaline Phosphatase (39-117) U/L Ammonia (13-55) umol/L Troponin I High Sens (<3.5-35.0) ng/L B-Natriuretic Peptide (<100) pg/mL Total Protein (6.5-8.0) g/dL Albumin (3.5-5.0) g/dL Lipase (8-78) U/L COVID-19 (DEISI) Positive A (Negative) COVID-19 Clin Com See Note 01/16/22 01/16/22 01/16/22 Range/Units 12:11 12:11 12:11 WBC (4.8-10.8) X10*3/uL RBC (4.60-5.80) X10*6/uL Hgb (14.0-18.0) g/dl Hct (42.0-52.0) % MCV (80.0-98.0) fL MCH (27.0-33.0) pg MCHC (31.0-36.0) g/dl RDW (11.0-16.0) % Plt Count (160-400) X10*3/uL MPV (9.4-12.4) fL Immature Gran % (Auto) (0.0-0.4) % Neut % (Auto) (45-73) % Lymph % (Auto) (20-40) % Freestone % (Auto) (2-11) % Eos % (Auto) (0-4) % Baso % (Auto) (0-2) % Lymph # (Auto) (1.2-4.9) X10*3/uL Freestone # (Auto) (0.1-1.2) X10*3/uL Eos # (Auto) (0.0-0.4) X10*3/uL Baso # (Auto) (0.0-0.2) X10*3/uL Abs Immat Gran (auto) (0.00-0.03) X10*3/uL Absolute Neuts (auto) (2.0-8.3) x10*3/uL Absolute Nucleated RBC (0.0-0.012) X10*3/uL Nucleated RBC % (auto) (0.0-0.2) /100WBC PT (10.0-13.1) SEC INR (0.9-1.1) Sodium 141 (135-145) mmol/L Potassium 4.6 D (3.3-5.1) mmol/L Chloride 95 L (96-108) mmol/L Carbon Dioxide 28 (22-29) mmol/L Anion Gap 23 H (12-20) BUN 24 H (9-16) mg/dL Creatinine 4.12 H* (0.5-1.4) mg/dL Estim Creat Clear Calc 15.7 Estimated GFR 15 Random Glucose 139 H (60-115) mg/dL Lactic Acid 3.1 H* (0.5-2.0) mmol/L Lactic Acid F/U @ 2Hr (0.5-2.0) mmol/L Calcium 10.5 H D (8.4-10.2) mg/dL Total Bilirubin 0.6 (0.0-1.0) mg/dL GGT 292 H (11-51) U/L AST 88 H (5-37) U/L ALT 65 H (0-40) U/L Alkaline Phosphatase 224 H D (39-117) U/L Ammonia (13-55) umol/L Troponin I High Sens 16.6 (<3.5-35.0) ng/L B-Natriuretic Peptide 2718 H (<100) pg/mL Total Protein 8.5 H (6.5-8.0) g/dL Albumin 4.7 (3.5-5.0) g/dL Lipase (8-78) U/L COVID-19 (DEISI) (Negative) COVID-19 Clin Com 01/16/22 01/16/22 01/16/22 Range/Units 13:41 17:40 17:40 WBC (4.8-10.8) X10*3/uL RBC (4.60-5.80) X10*6/uL Hgb (14.0-18.0) g/dl Hct (42.0-52.0) % MCV (80.0-98.0) fL MCH (27.0-33.0) pg MCHC (31.0-36.0) g/dl RDW (11.0-16.0) % Plt Count (160-400) X10*3/uL MPV (9.4-12.4) fL Immature Gran % (Auto) (0.0-0.4) % Neut % (Auto) (45-73) % Lymph % (Auto) (20-40) % Freestone % (Auto) (2-11) % Eos % (Auto) (0-4) % Baso % (Auto) (0-2) % Lymph # (Auto) (1.2-4.9) X10*3/uL Freestone # (Auto) (0.1-1.2) X10*3/uL Eos # (Auto) (0.0-0.4) X10*3/uL Baso # (Auto) (0.0-0.2) X10*3/uL Abs Immat Gran (auto) (0.00-0.03) X10*3/uL Absolute Neuts (auto) (2.0-8.3) x10*3/uL Absolute Nucleated RBC (0.0-0.012) X10*3/uL Nucleated RBC % (auto) (0.0-0.2) /100WBC PT (10.0-13.1) SEC INR (0.9-1.1) Sodium 140 (135-145) mmol/L Potassium 4.6 (3.3-5.1) mmol/L Chloride 94 L (96-108) mmol/L Carbon Dioxide 28 (22-29) mmol/L Anion Gap 23 H (12-20) BUN 27 H (9-16) mg/dL Creatinine 4.56 H* (0.5-1.4) mg/dL Estim Creat Clear Calc 14.1 Estimated GFR 13 Random Glucose 106 (60-115) mg/dL Lactic Acid (0.5-2.0) mmol/L Lactic Acid F/U @ 2Hr 3.2 H* (0.5-2.0) mmol/L Calcium 10.2 (8.4-10.2) mg/dL Total Bilirubin 0.5 (0.0-1.0) mg/dL GGT (11-51) U/L AST 111 H (5-37) U/L ALT 80 H (0-40) U/L Alkaline Phosphatase 230 H (39-117) U/L Ammonia 19 (13-55) umol/L Troponin I High Sens (<3.5-35.0) ng/L B-Natriuretic Peptide (<100) pg/mL Total Protein 8.1 H (6.5-8.0) g/dL Albumin 4.4 (3.5-5.0) g/dL Lipase 18 (8-78) U/L COVID-19 (DEISI) (Negative) COVID-19 Clin Com Discharge Plan Discharge Clinical Impression: Near syncope, End stage chronic kidney disease, COVID-19 Patient Disposition: Xfer SNF Transfer Details: To [facility] Instructions: Near Syncope (ED), End Stage Kidney Disease (ED), COVID-19 (Coronavirus Disease 2019) (ED) Additional Instructions: Continue your medications and follow up the PCP COVID-19 precautions Report to the ER if increased shortness of breath Prescriptions: No Action atorvastatin 80 mg Tablet 40 mg PO BEDTIME acetaminophen 325 mg Tablet 650 mg PO Q6H PRN (Reason: Pain (Scale Score 1-3)) carvedilol 12.5 mg Tablet 12.5 mg PO MOWEFR@0900 Rx Instructions: must administer with a meal/food 1 tab daily on mowefr and 1 tab bid on sututhsa carvedilol 12.5 mg Tablet 12.5 mg PO SUTUTHSA@2100 Rx Instructions: must administer with a meal/food 1 tab daily on mowefr and 1 tab bid on sututhsa carvedilol 12.5 mg tablet 12.5 mg PO SUTUTHSA@0900 Rx Instructions: 1 tab daily on mowefr and 1 tab bid on sututhsa insulin glargine [Lantus U-100 Insulin] 100 unit/mL solution 8 unit subcut BEDTIME nicotine (polacrilex) 2 mg Gum 2 mg BUCCAL Q2H PRN (Reason: Nicotine Cravings) famotidine [Pepcid] 20 mg Tablet 20 mg PO DAILY bisacodyl 10 mg Suppository 10 mg [place] DAILY PRN (Reason: Constipation) nitroglycerin 0.4 mg Tablet, Sublingual 0.4 mg SUBLINGUAL Q5M PRN (Reason: chest pain) Rx Instructions: do not exceed 3 doses per episode sertraline 25 mg tablet 25 mg PO DAILY Renal Multivitamin Formula 0.8 mg Tablet 1 tab PO DAILY gabapentin 100 mg Capsule 100 mg PO TID insulin lispro [Humalog U-100 Insulin] 100 unit/mL Solution 1 sliding scale dose SUBCUT BIDAC Protocol: Insulin Correction Scale Less than or equal to 110 ---- Give (units): 0 111 to 150 Give (units): 0 151 to 200 Give (units): 2 201 to 250 Give (units): 4 251 to 300 Give (units): 6 301 to 350 Give (units): 8 Greater than 350 Give (units): 10 Call MD if Blood Glucose > : 350 nifedipine 60 mg tablet extended release 60 mg PO WEFR@0900 Rx Instructions: 1 tab daily on and 1 tab bid on sututhsa nifedipine 60 mg tablet extended release 60 mg PO SUTUTHSA@2100 Rx Instructions: 1 tab daily on wefr and 1 tab bid on sututhsa nifedipine 60 mg tablet extended release 60 mg PO SUTUTHSA@0900 Rx Instructions: 1 tab daily on mowefr and 1 tab bid on sututhsa sertraline 50 mg tablet 50 mg PO DAILY oxycodone 5 mg Tablet 5 mg PO Q6H PRN (Reason: Pain (Scale Score 4-6)) Eucerin Cream 1 appl TOPICAL QID PRN (Reason: Dry Skin) ticagrelor 90 mg Tablet 90 mg PO WEFR@0900 ticagrelor 90 mg Tablet 90 mg PO SUTUTHSA@2100 ticagrelor 90 mg Tablet 90 mg PO SUTUTHSA@0900 apixaban 2.5 mg Tablet 2.5 mg PO WEFR@0900 Rx Instructions: 1 tab daily on mowefr and 1 tab bid on sututhsa Eliquis 2.5 mg tablet 2.5 mg PO SUTUTHSA@0900 Rx Instructions: 1 tab daily on mowefr and 1 tab bid on sututhsa Eliquis 2.5 mg tablet 2.5 tab PO SUTUTHSA@2100 Rx Instructions: 1 tab daily on mowefr and 1 tab bid on sututhsa Combivent Respimat 20-100 mcg/actuation Mist 1 puff INHALATION QID Rx Instructions: space evenly during waking hours Zenpep 5,000-17,000- 24,000 unit capsule,delayed release(DR/EC) 1 cap PO SUTUTHSA@0900 Zenpep 5,000-17,000- 24,000 unit capsule,delayed release(DR/EC) 1 cap PO MOWEFR@0600 Zenpep 5,000-17,000- 24,000 unit capsule,delayed release(DR/EC) 1 cap PO BID@1400,2000 Glucagon (HCl) Emergency Kit 1 mg Recon Soln 1 mg SUBCUT Q20M PRN (Reason: bg <60 and unresponsive) Rx Instructions: until target blood sugar attained tizanidine 4 mg tablet 1 tab PO MOWEFR@0600 tizanidine 4 mg tablet 1 tab PO SUTUTHSA@0900 tizanidine 4 mg tablet 1 tab PO BID@1300,1700 Interventions: ED Discharge Assessment Last Done: 01/16/22 20:39 Discharge Date/Time: 01/16/22 20:39
[2022-01-16 18:56] LABS: Lipase 18 U/L (8-78)
[2022-01-16 19:44] LABS: Reflex Lactate? 2 Y
== END 2022-01-16 20:39 | disposition skilled nursing facility (03) ==
PROVIDERS: Student in an Organized Health Care Education/Training Program; Emergency Provider Internal Medicine
DX: U07.1 COVID-19 (principal); R55 Syncope and collapse; J81.1 Chronic pulmonary edema; R74.01 Elevation of levels of liver transaminase levels; K86.1 Other chronic pancreatitis; K86.9 Disease of pancreas, unspecified; R10.9 Unspecified abdominal pain; R53.1 Weakness; E87.20 Acidosis, unspecified; E11.22 Type 2 diabetes mellitus with diabetic chronic kidney disease; I13.2 Hypertensive heart and chronic kidney disease with heart failure and with stage 5 chronic kidney disease, or end stage renal disease; I50.9 Heart failure, unspecified; N18.6 End stage renal disease; Z99.2 Dependence on renal dialysis; I48.91 Unspecified atrial fibrillation; R62.7 Adult failure to thrive; Z68.23 Body mass index [BMI] 23.0-23.9, adult; Z91.81 History of falling; Z87.891 Personal history of nicotine dependence; Z86.73 Personal history of transient ischemic attack (TIA), and cerebral infarction without residual deficits; Z79.01 Long term (current) use of anticoagulants
CPT/HCPCS: 36415; 70450; 71045; 71250; 72125; 74176; 76705; 80053; 82140; 82977; 83605; 83690; 83880; 84484; 85025; 85610; 87040; 87147; 87205; 87635; 93005; 99284

== ENCOUNTER 2022-02-06 10:42 | Emergency (ER) | payer MEDICARE, MEDICAID, SELFPAY ==
[2022-02-06 11:05] VITALS: BP 110/71; BP 117/78; PULSE 66; PULSE 86; RESP 16; TEMP -13.1; TEMP 8.4; O2SAT 100; O2SAT 96; BMI 18.1
[2022-02-06 11:32] LABS: Glucose, Whole Blood 162 mg/dL (60-115)
--- NOTE | 2022-02-06 11:38 | ED_ITS ---
HPI - General Adult General Chief complaint: Extremity Problem Stated complaint: SHUNT BLEEDING X 1 HOUR Time Seen by Provider: 02/06/22 11:22 Source: patient and EMS Mode of arrival: EMS History of Present Illness HPI narrative: 67-year-old male with history ESRD on dialysis (MWF), diabetes, CHF, atrial fibrillation on Eliquis, pulmonary hypertension, opiate dependence in remission, presenting to the ED via EMS from HD for bleeding shunt x1 hour. Patient offers no complaints at present. Poor historian. Onset (ago): hour(s) Related Data Home Medications Medication Instructions Recorded Confirmed acetaminophen 325 mg tablet 650 mg PO Q6H PRN Pain (Scale 01/16/22 01/16/22 Score 1-3) apixaban 2.5 mg tablet 2.5 mg PO MOWEFR@0900 01/16/22 01/16/22 apixaban 2.5 mg tablet (Eliquis) 2.5 mg PO SUTUTHSA@0900 01/16/22 01/16/22 apixaban 2.5 mg tablet (Eliquis) 2.5 tab PO SUTUTHSA@2100 01/16/22 01/16/22 atorvastatin 80 mg tablet 40 mg PO BEDTIME 01/16/22 01/16/22 bisacodyl 10 mg rectal suppository 10 mg FL DAILY PRN Constipation 01/16/22 01/16/22 carvedilol 12.5 mg tablet 12.5 mg PO MOWEFR@0900 01/16/22 01/16/22 carvedilol 12.5 mg tablet 12.5 mg PO SUTUTHSA@0900 01/16/22 01/16/22 carvedilol 12.5 mg tablet 12.5 mg PO SUTUTHSA@2100 01/16/22 01/16/22 famotidine 20 mg tablet (Pepcid) 20 mg PO DAILY 01/16/22 01/16/22 gabapentin 100 mg capsule 100 mg PO TID 01/16/22 01/16/22 glucagon HCl 1 mg solution for 1 mg subcut Q20M PRN bg <60 and 01/16/22 01/16/22 injection (Glucagon (HCl) unresponsive Emergency Kit) insulin glargine 100 unit/mL 8 unit subcut BEDTIME 01/16/22 01/16/22 subcutaneous solution (Lantus U-100 Insulin) insulin lispro 100 unit/mL 1 sliding scale dose subcut BIDAC 01/16/22 01/16/22 subcutaneous solution (Humalog U-100 Insulin) ipratropium 20 mcg-albuterol 100 1 puff inhalation QID 01/16/22 01/16/22 mcg/actuation mist for inhalation (Combivent Respimat) bzgldv-rhdsdbvz-ytmboxo 1 cap PO BID@1400,2000 01/16/22 01/16/22 5,000-17,000-24,000 unit capsule, delayed rel (Zenpep) ozzwbe-jotdpgwt-smakpic 1 cap PO MOWEFR@0600 01/16/22 01/16/22 5,000-17,000-24,000 unit capsule, delayed rel (Zenpep) iczkhj-ibclhpbg-qwjrqil 1 cap PO SUTUTHSA@0900 01/16/22 01/16/22 5,000-17,000-24,000 unit capsule, delayed rel (Zenpep) nicotine (polacrilex) 2 mg gum 2 mg buccal Q2H PRN Nicotine 01/16/22 01/16/22 Cravings nifedipine 60 mg tablet,extended 60 mg PO MOWEFR@0900 01/16/22 01/16/22 release nifedipine 60 mg tablet,extended 60 mg PO SUTUTHSA@0901/16/22 01/16/22 release nifedipine 60 mg tablet,extended 60 mg PO SUTUTHSA@209901/16/22 01/16/22 release nitroglycerin 0.4 mg sublingual 0.4 mg sublingual Q5M PRN chest 01/16/22 01/16/22 tablet pain oxycodone 5 mg tablet 5 mg PO Q6H PRN Pain (Scale Score 01/16/22 01/16/22 4-6) sertraline 25 mg tablet 25 mg PO DAILY 01/16/22 01/16/22 sertraline 50 mg tablet 50 mg PO DAILY 01/16/22 01/16/22 ticagrelor 90 mg tablet 90 mg PO MOWEFR@0900 01/16/22 01/16/22 ticagrelor 90 mg tablet 90 mg PO SUTUTHSA@0900 01/16/22 01/16/22 ticagrelor 90 mg tablet 90 mg PO SUTUTHSA@2100 01/16/22 01/16/22 tizanidine 4 mg tablet 1 tab PO BID@1300,1700 01/16/22 01/16/22 tizanidine 4 mg tablet 1 tab PO MOWEFR@0600 01/16/22 01/16/22 tizanidine 4 mg tablet 1 tab PO SUTUTHSA@0900 01/16/22 01/16/22 vitamin B complex-vitamin C-folic 1 tab PO DAILY 01/16/22 01/16/22 acid 0.8 mg tablet white petrolatum-mineral oil 1 appl topical QID PRN Dry Skin 01/16/22 01/16/22 topical cream Allergies Allergy/AdvReac Type Severity Reaction Status Date / Time No Known Allergies Allergy Verified 09/28/21 08:34 Review of Systems Review of Systems: ROS limited due to patient being poor historian. Yes all other systems are reviewed and are negative Constitutional: Constitutional: Reports as per [facility] Past Medical History Attestation statement: The following information was validated with the patient. Medical History Acute CVA (cerebrovascular accident) Afib Anemia BPH (benign prostatic hyperplasia) Chronic back pain ESRD (end stage renal disease) HTN (hypertension) Opiate dependence Pneumothorax Pulmonary hypertension STEMI (ST elevation myocardial infarction) Surgical History H/O splenectomy Hx of cholecystectomy Social History Social History Alcohol intake: former Patient Tobacco Use Status: Former Tobacco user Advance Directives: No Advance Directives Information Provided: No Physical Exam ED Vital Signs: Vital Signs - 24 hr 02/06/22 11:05 02/06/22 11:39 02/06/22 13:01 Temperature 8.4 F L 98.3 F Pulse Rate 66 67 65 Respiratory Rate 16 18 Blood Pressure 110/71 108/78 121/70 Pulse Oximetry 96 99 Oxygen Delivery Method Room Air Room Air BMI result Body Mass Index 18.1 Const General: cooperative, healthy appearing and no acute distress Orientation/consciousness: oriented to person Limitations: no limitations HENMT Head: Yes normal to inspection and Yes atraumatic Ears: hearing grossly normal bilaterally General nose exam: Normal external nose present Face and sinus: Yes normal facial exam Eyes General: appearance normal, both eyes and all related structures EOM: EOMs intact bilaterally Neck Neck: Yes normal visual inspection and Yes no meningeal signs Resp Effort & Inspection: normal respiratory effort and no respiratory distress Auscultation: clear to auscultation bilaterally Cardio Rate: regular rate Heart sounds: S1 normal heart sound present and S2 normal heart sound present Peripheral pulses: Peripheral pulses 2+ throughout GI Inspection: Yes normal to inspection Palpation (GI): Soft to palpation, nontender, no guarding and not rigid Skin Rashes: no rashes Wounds: no wounds Neuro General: oriented to person, tone normal and no meningeal signs Extrem Other: + pulsatile bleeding noted from left upper extremity shunt site. +palpable thrill Course Course Course Narrative: 1545-- after 1 hour of Armando wrap and tourniquet, tourniquet removed without bleeding > 15 minutes later Armando wrap and dressing removed, no evidence of active bleeding. Surgicel still intact > will continue to monitor -thrill still palpable after compression removal -1531-- bleeding still controlled. H&H stable. chronic CKD (patient received full HD today). Anion gap from chronic CKD > plan to discharge patient back to [facility] Medical Decision Making [facility] Narrative Medical decision making narrative: 67-year-old male with history ESRD on dialysis (MWF), diabetes, CHF, atrial fi brillation on Eliquis, pulmonary hypertension, opiate dependence in remission, presenting to the ED via EMS from HD for bleeding shunt x1 hour. On exam vital signs stable, NAD, poor historian, oriented to self (baseline), physical exam as above with pulsatile bleed noted from access site in left upper extremity. Surgicel applied with tight Armando wrap. Will observe and reassess Plan: Labs Medical Records Medical records reviewed: Yes I reviewed the patient's medical records. Lab Data Lab results reviewed: Yes I reviewed the patient's lab results. Result diagrams: 02/06/22 14:27 02/06/22 14:27 Labs: Lab Results 02/06/22 02/06/22 02/06/22 Range/Units 11:29 14:27 14:27 WBC 6.3 (4.8-10.8) X10*3/uL RBC 4.03 L (4.60-5.80) X10*6/uL Hgb 11.2 L (14.0-18.0) g/dl Hct 34.6 L (42.0-52.0) % MCV 85.9 (80.0-98.0) fL MCH 27.8 (27.0-33.0) pg MCHC 32.4 (31.0-36.0) g/dl RDW 16.1 H (11.0-16.0) % Plt Count 334 (160-400) X10*3/uL MPV 10.5 (9.4-12.4) fL Immature Gran % (Auto) 0.3 (0.0-0.4) % Neut % (Auto) 57.4 (45-73) % Lymph % (Auto) 25.4 (20-40) % Pepin % (Auto) 9.7 (2-11) % Eos % (Auto) 6.7 H (0-4) % Baso % (Auto) 0.5 (0-2) % Lymph # (Auto) 1.6 (1.2-4.9) X10*3/uL Pepin # (Auto) 0.6 (0.1-1.2) X10*3/uL Eos # (Auto) 0.4 (0.0-0.4) X10*3/uL Baso # (Auto) 0.0 (0.0-0.2) X10*3/uL Abs Immat Gran (auto) 0.02 (0.00-0.03) X10*3/uL Absolute Neuts (auto) 3.6 (2.0-8.3) x10*3/uL Absolute Nucleated RBC 0.000 (0.0-0.012) X10*3/uL Nucleated RBC % (auto) 0.0 (0.0-0.2) /100WBC PT 13.2 H (10.0-13.1) SEC INR 1.1 (0.9-1.1) APTT 34.0 (26.0-36.4) SEC Sodium (135-145) mmol/L Potassium (3.3-5.1) mmol/L Chloride (96-108) mmol/L Carbon Dioxide (22-29) mmol/L Anion Gap (12-20) BUN (9-16) mg/dL Creatinine (0.5-1.4) mg/dL Estim Creat Clear Calc Estimated GFR POC Glucose 162 H (60-115) mg/dL Random Glucose (60-115) mg/dL Calcium (8.4-10.2) mg/dL 02/06/22 Range/Units 14:27 WBC (4.8-10.8) X10*3/uL RBC (4.60-5.80) X10*6/uL Hgb (14.0-18.0) g/dl Hct (42.0-52.0) % MCV (80.0-98.0) fL MCH (27.0-33.0) pg MCHC (31.0-36.0) g/dl RDW (11.0-16.0) % Plt Count (160-400) X10*3/uL MPV (9.4-12.4) fL Immature Gran % (Auto) (0.0-0.4) % Neut % (Auto) (45-73) % Lymph % (Auto) (20-40) % Pepin % (Auto) (2-11) % Eos % (Auto) (0-4) % Baso % (Auto) (0-2) % Lymph # (Auto) (1.2-4.9) X10*3/uL Pepin # (Auto) (0.1-1.2) X10*3/uL Eos # (Auto) (0.0-0.4) X10*3/uL Baso # (Auto) (0.0-0.2) X10*3/uL Abs Immat Gran (auto) (0.00-0.03) X10*3/uL Absolute Neuts (auto) (2.0-8.3) x10*3/uL Absolute Nucleated RBC (0.0-0.012) X10*3/uL Nucleated RBC % (auto) (0.0-0.2) /100WBC PT (10.0-13.1) SEC INR (0.9-1.1) APTT (26.0-36.4) SEC Sodium 140 (135-145) mmol/L Potassium 3.8 (3.3-5.1) mmol/L Chloride 93 L (96-108) mmol/L Carbon Dioxide 30 H (22-29) mmol/L Anion Gap 21 H (12-20) BUN 23 H (9-16) mg/dL Creatinine 4.09 H* (0.5-1.4) mg/dL Estim Creat Clear Calc 15.4 Estimated GFR 15 POC Glucose (60-115) mg/dL Random Glucose 118 H (60-115) mg/dL Calcium 9.9 (8.4-10.2) mg/dL Discharge Plan Discharge Clinical Impression: Bleeding from dialysis shunt Patient Disposition: Xfer [facility] Transfer Details: [facility] Instructions: Bleeding Disorders (ED) Additional Instructions: The bleeding from your shunt was controlled with compression and Surgicel. Surgicel can be removed in 1-2 days, apply saline prior to pulling off Please use smaller size needle when performing hemodialysis to avoid recurrent bleeding Continue home prescribed medications, follow-up with Prescriptions: No Action atorvastatin 80 mg Tablet 40 mg PO BEDTIME acetaminophen 325 mg Tablet 650 mg PO Q6H PRN (Reason: Pain (Scale Score 1-3)) carvedilol 12.5 mg Tablet 12.5 mg PO MOWEFR@0900 Rx Instructions: must administer with a meal/food 1 tab daily on mowefr and 1 tab bid on sututhsa carvedilol 12.5 mg Tablet 12.5 mg PO SUTUTHSA@2100 Rx Instructions: must administer with a meal/food 1 tab daily on mowefr and 1 tab bid on sututhsa carvedilol 12.5 mg tablet 12.5 mg PO SUTUTHSA@0900 Rx Instructions: 1 tab daily on mowefr and 1 tab bid on sututhsa insulin glargine [Lantus U-100 Insulin] 100 unit/mL solution 8 unit subcut BEDTIME nicotine (polacrilex) 2 mg Gum 2 mg BUCCAL Q2H PRN (Reason: Nicotine Cravings) famotidine [Pepcid] 20 mg Tablet 20 mg PO DAILY bisacodyl 10 mg Suppository 10 mg FL DAILY PRN (Reason: Constipation) nitroglycerin 0.4 mg Tablet, Sublingual 0.4 mg SUBLINGUAL Q5M PRN (Reason: chest pain) Rx Instructions: do not exceed 3 doses per episode sertraline 25 mg tablet 25 mg PO DAILY Renal Multivitamin Formula 0.8 mg Tablet 1 tab PO DAILY gabapentin 100 mg Capsule 100 mg PO TID insulin lispro [Humalog U-100 Insulin] 100 unit/mL Solution 1 sliding scale dose SUBCUT BIDAC Protocol: Insulin Correction Scale Less than or equal to 110 ---- Give (units): 0 111 to 150 Give (units): 0 151 to 200 Give (units): 2 201 to 250 Give (units): 4 251 to 300 Give (units): 6 301 to 350 Give (units): 8 Greater than 350 Give (units): 10 Call MD if Blood Glucose > : 350 nifedipine 60 mg tablet extended release 60 mg PO MOWEFR@0900 Rx Instructions: 1 tab daily on mowefr and 1 tab bid on sututhsa nifedipine 60 mg tablet extended release 60 mg PO SUTUTHSA@2100 Rx Instructions: 1 tab daily on mowefr and 1 tab bid on sututhsa nifedipine 60 mg tablet extended release 60 mg PO SUTUTHSA@0900 Rx Instructions: 1 tab daily on mowefr and 1 tab bid on sututhsa sertraline 50 mg tablet 50 mg PO DAILY oxycodone 5 mg Tablet 5 mg PO Q6H PRN (Reason: Pain (Scale Score 4-6)) Eucerin Cream 1 appl TOPICAL QID PRN (Reason: Dry Skin) ticagrelor 90 mg Tablet 90 mg PO MOWEFR@0900 ticagrelor 90 mg Tablet 90 mg PO SUTUTHSA@2100 ticagrelor 90 mg Tablet 90 mg PO SUTUTHSA@0900 apixaban 2.5 mg Tablet 2.5 mg PO MOWEFR@0900 Rx Instructions: 1 tab daily on mowefr and 1 tab bid on sututhsa Eliquis 2.5 mg tablet 2.5 mg PO SUTUTHSA@0900 Rx Instructions: 1 tab daily on mowefr and 1 tab bid on sututhsa Eliquis 2.5 mg tablet 2.5 tab PO SUTUTHSA@2100 Rx Instructions: 1 tab daily on mowefr and 1 tab bid on sututhsa Combivent Respimat 20-100 mcg/actuation Mist 1 puff INHALATION QID Rx Instructions: space evenly during waking hours Zenpep 5,000-17,000- 24,000 unit capsule,delayed release(DR/EC) 1 cap PO SUTUTHSA@0900 Zenpep 5,000-17,000- 24,000 unit capsule,delayed release(DR/EC) 1 cap PO MOWEFR@0600 Zenpep 5,000-17,000- 24,000 unit capsule,delayed release(DR/EC) 1 cap PO BID@1400,2000 Glucagon (HCl) Emergency Kit 1 mg Recon Soln 1 mg SUBCUT Q20M PRN (Reason: bg <60 and unresponsive) Rx Instructions: until target blood sugar attained tizanidine 4 mg tablet 1 tab PO MOWEFR@0600 tizanidine 4 mg tablet 1 tab PO SUTUTHSA@0900 tizanidine 4 mg tablet 1 tab PO BID@1300,1700 Referrals: Physician,Unknown J [Primary Care Provider] - 2 days
[2022-02-06 11:39] VITALS: BP 108/78; PULSE 67; O2SAT 99
[2022-02-06 13:01] VITALS: BP 121/70; PULSE 65; RESP 18; TEMP 36.8
[2022-02-06 14:34] LABS: MANUAL DIFF FLAG NO
[2022-02-06 14:36] LABS: Basophils Percent Auto 0.5 % (0-2); Eosinophils Absolute Auto 0.4 X10*3/uL (0.0-0.4); Eosinophils Percent Auto 6.7 % (0-4); Hematocrit 34.6 % (42.0-52.0); Hemoglobin 11.2 g/dl (14.0-18.0); Imm Gran Abs Auto 0.02 X10*3/uL (0.00-0.03); Imm Gran Pct Auto 0.3 % (0.0-0.4); Lymphocytes Absolute Auto 1.6 X10*3/uL (1.2-4.9); Lymphocytes Percent Auto 25.4 % (20-40); Mean Corpuscular HGB Conc 32.4 g/dl (31.0-36.0); Mean Corpuscular Hemoglobin 27.8 pg (27.0-33.0); Mean Corpuscular Volume 85.9 fL (80.0-98.0); Mean Platelet Volume 10.5 fL (9.4-12.4); Monocytes Absolute Auto 0.6 X10*3/uL (0.1-1.2); Monocytes Percent Auto 9.7 % (2-11); Neutrophils Absolute Auto 3.6 x10*3/uL (2.0-8.3); Neutrophils Percent Auto 57.4 % (45-73); Platelet Count 334 X10*3/uL (160-400); Red Blood Count 4.03 X10*6/uL (4.60-5.80); Red Cell Distribution Width 16.1 % (11.0-16.0); White Blood Count 6.3 X10*3/uL (4.8-10.8)
[2022-02-06 14:42] LABS: INTERNATIONAL NORM RATIO 1.1 (0.9-1.1); Prothrombin Time 13.2 SEC (10.0-13.1)
[2022-02-06 15:27] LABS: Creatinine Clr Calc Pharmacy 15.4; Estimated Glomerular Filt Rate 15
[2022-02-06 15:28] LABS: Anion Gap 21 (12-20); Blood Urea Nitrogen 23 mg/dL (9-16); Calcium 9.9 mg/dL (8.4-10.2); Carbon Dioxide 30 mmol/L (22-29); Chloride 93 mmol/L (96-108); Glucose Random 118 mg/dL (60-115); Potassium 3.8 mmol/L (3.3-5.1); Sodium 140 mmol/L (135-145)
--- NOTE | 2022-02-06 18:54 | PC.NURSE ---
pt transportation was booked with lauren for 1800 but lauren is not here will reach out to get a new eta
--- NOTE | 2022-02-06 19:40 | PC.NURSE ---
pt eating dinner on stretcher. waiting for pending sale to [facility] ambulance back to facility. no apparent distress or complaints
== END 2022-02-06 20:09 | disposition skilled nursing facility (03) ==
PROVIDERS: Physician Assistant; Emergency Provider Emergency Medicine
DX: T82.838A Hemorrhage due to vascular prosthetic devices, implants and grafts, initial encounter (principal); I48.91 Unspecified atrial fibrillation; Y82.9 Unspecified medical devices associated with adverse incidents; Y92.9 Unspecified place or not applicable; Y83.9 Surgical procedure, unspecified as the cause of abnormal reaction of the patient, or of later complication, without mention of misadventure at the time of the procedure; E11.22 Type 2 diabetes mellitus with diabetic chronic kidney disease; I12.0 Hypertensive chronic kidney disease with stage 5 chronic kidney disease or end stage renal disease; N18.6 End stage renal disease; Z79.4 Long term (current) use of insulin; Z79.01 Long term (current) use of anticoagulants; Z79.899 Other long term (current) drug therapy
CPT/HCPCS: 36415; 80048; 82947; 85025; 85610; 85730; 99283

== ENCOUNTER 2022-03-11 11:36 | Inpatient (IN) | payer MEDICARE, MEDICAID, SELFPAY ==
--- NOTE | ~2022-03-11 | CT_ITS ---
EXAMINATION: CT ABDOMEN AND PELVIS WITHOUT CONTRAST CLINICAL INFORMATION: Abdominal pain COMPARISON: CT abdomen pelvis 01/16/2022 TECHNIQUE: Multidetector volumetric imaging was performed from the superior aspect of the liver through the pubic symphysis. Sagittal and coronal reformatted images were obtained on the technologist's workstation. This CT examination was performed using dose optimization techniques as appropriate, variously including the following: *Automated exposure control *Adjustment of mA and/or kV according to patient size (this includes techniques or standardized protocols for targeted exams where dose is matched to indication/reason for exam; i.e. extremities or head) *Use of iterative reconstruction technique DLP: 525 mGy-cm FINDINGS: LUNG BASES: Moderate cardiomegaly partially imaged. 6 mm solid pulmonary nodule in the right lower lobe, 4:3 partially imaged Dependent bibasilar atelectasis. ABDOMINAL AND PELVIC WALL: Unremarkable. LIVER AND BILIARY TREE: Moderate intrahepatic and severe extrahepatic biliary duct dilatation with the common bile duct measuring 2.6 cm. GALLBLADDER: Unremarkable. PANCREAS: Numerous pancreatic calcifications, compatible with with chronic pancreatitis. There is focal masslike thickening in the pancreatic neck measuring approximately 4.3 cm raising the suspicion for a primary pancreatic mass. Pancreatic duct in the neck is dilated to 7 mm. SPLEEN: Splenosis is noted in the left upper quadrant. ADRENAL GLANDS: Similar adenomatous hyperplasia of the left adrenal gland without ari discrete nodule. KIDNEYS AND URETERS: [place]ak 1 right renal cysts, no imaging follow-up recommended. Left renal hypodensity too small to characterize. Kidney is atrophic. GASTROINTESTINAL TRACT: Large desiccated stool ball within the rectum measuring 8 cm with wall thickening and minimal infiltration of the mesorectal fat which could be seen in the setting of stercoral colitis if clinical symptoms are appropriate. VASCULAR: Unremarkable. LYMPH NODES/PERITONEUM: Few nonpathologically enlarged retroperitoneal nodes appear stable from prior. FREE FLUID: Trace perihepatic ascites. BLADDER: Unremarkable. PELVIC VISCERA: Unremarkable. OSSEOUS STRUCTURES: Degenerative disc disease at L5-S1. Retrolisthesis of L5 on S1. CT/CT abdomen pelvis wo IV con IMPRESSION: There is focal masslike thickening in the pancreatic neck measuring approximately 4.3 cm raising the suspicion for a primary pancreatic mass. Pancreatic duct in the neck is dilated to 7 mm and there is moderate intrahepatic and severe extrahepatic biliary duct dilatation. Recommend further evaluation with CT pancreas protocol. Large desiccated stool ball within the rectum measuring 8 cm with wall thickening and minimal infiltration of the mesorectal fat which could be seen in the setting of stercoral colitis if clinical symptoms are appropriate. A 6 mm solid pulmonary nodule in the right lower lobe, incompletely imaged. If patient is determined to have a primary underlying malignancy recommend a CT chest for staging. If patient has no primary malignancy recommend follow-up per Fleischner Society recommendations. According to the UPDATED 2017 Fleischner Society recommendations, the advised followup imaging for a single 6-8 mm solid nodule is: LOW RISK PATIENT: CT at 6-12 months, then consider CT at 18-24 months. HIGH RISK PATIENT: CT at 6-12 months, then at 18-24 months. Trace perihepatic ascites. Similar adenomatous hyperplasia of the left adrenal gland without ari discrete nodule.
--- NOTE | ~2022-03-11 | CT_ITS ---
EXAMINATION: CT HEAD WITHOUT CONTRAST CLINICAL INFORMATION: Weakness and difficulty walking COMPARISON: Head CT 01/16/2022 TECHNIQUE: Imaging was performed from the skull base to vertex without intravenous administration of contrast. This CT examination was performed using dose optimization techniques as appropriate, variously including the following: *Automated exposure control *Adjustment of mA and/or kV according to patient size (this includes techniques or standardized protocols for targeted exams where dose is matched to indication/reason for exam; i.e. extremities or head) *Use of iterative reconstruction technique Total exam dose length product: 663 mGy-cm FINDINGS: No intra or extra-axial fluid collection, hemorrhage, or mass. No ventriculomegaly. No midline shift or herniation. Basal cisterns are patent. Walters-white matter differentiation is maintained. No territorial encephalomalacia. Proportional prominence of the ventricles and sulcal spaces is consistent with moderate volume loss. Redemonstrated extensive confluent hypoattenuation in the supratentorial periventricular and subcortical white matter most pronounced in the frontal lobes left greater than right. Small focus of encephalomalacia and cortical volume loss in the left frontal operculum, unchanged. Mild ex vacuo dilation of the No calvarial fracture or soft tissue abnormality. The mastoid air cells and visualized portions of the paranasal sinuses are well aerated. CT/CT head/brain wo IV con IMPRESSION: No acute intracranial pathology or change.
--- NOTE | ~2022-03-11 | MR_ITS ---
EXAMINATION: MR ABDOMEN WITHOUT AND WITH CONTRAST CLINICAL INFORMATION: Pancreatic mass COMPARISON: Previous abdominal ultrasound January [address] January and March 2022 TECHNIQUE: MR abdomen was performed without and with use of 6 mL intravenous Gadavist gadolinium contrast. Postcontrast images are performed in multiphase dynamic sequences. Imaging was performed in 3 planes. MRCP sequences were also performed. Exam is significantly limited due to artifact from respiratory motion. Patient also vomited after intravenous gadolinium demonstration. FINDINGS: LUNG BASES: The visualized lung bases are clear. The heart is enlarged. LIVER, GALLBLADDER, AND BILIARY TREE: The liver is normal in size and contour. There is a 1 cm lesion in the right lobe of the liver. This is low signal on T1-weighted sequences and high signal on T2-weighted sequences. This is not well appreciated post contrast and evaluation for enhancement cannot be made. Given very bright T2 signal, this may represent a cyst or hemangioma. No other focal liver lesion. There is severe intra and extrahepatic biliary duct dilatation. Common bile duct is dilated down to the head of the pancreas and measures up to 2.3 cm. The gallbladder is not seen. PANCREAS: The head and neck of the pancreas are enlarged. This measures approximately 4 x 5 cm in AP and transverse dimension and 6 cm in longitudinal dimension. This appears partially solid partially cystic. Evaluation for enhancement is very limited due to motion and vomiting. Main pancreatic duct is slightly dilated measuring up to 5 cm. SPLEEN: Splenosis. ADRENAL GLANDS: Probable adenomatous hyperplasia of the left adrenal gland. Normal right adrenal gland. KIDNEYS AND URETERS: Atrophic-appearing right kidney. Innumerable bilateral renal cysts. Largest cyst measures 1.8 cm in the lower pole right kidney. No imaging follow-up. GASTROINTESTINAL TRACT: No bowel obstruction. No ascites or fluid collection. ABDOMINAL WALL: No significant hernia is appreciated. LYMPH NODES: No lymphadenopathy. VASCULAR: Difficult to assess due to motion artifact. The abdominal aorta is normal in caliber. OSSEOUS STRUCTURES: Heterogeneous marrow signal. No focal lesion. Degenerative disc disease of the spine. MR/MR abdomen wo/w con IMPRESSION: Very limited exam due to motion artifact and vomiting. Heterogeneous partially solid partially cystic mass in the head/neck of the pancreas suspicious for neoplasm. Mild dilatation of the main pancreatic duct measuring up to 5 mm. Stable intra and extrahepatic biliary duct dilatation, common bile duct measuring 2.3 cm dilated down to the head of the pancreas. Solitary liver lesion in the right lobe of the liver, not further characterized. Vascular structures not assessed.
--- NOTE | ~2022-03-11 | CT_ITS ---
EXAMINATION: CT CHEST WITHOUT CONTRAST CLINICAL INFORMATION: Pulmonary nodule seen on abdomen CT COMPARISON: Chest CT 01/16/2022 TECHNIQUE: Multidetector volumetric CT imaging of the chest was done. Axial MIP volume rendering provided. Sagittal and coronal reformatted images were obtained. This CT examination was performed using dose optimization techniques as appropriate, variously including the following: *Automated exposure control *Adjustment of mA and/or kV according to patient size (this includes techniques or standardized protocols for targeted exams where dose is matched to indication/reason for exam; i.e. extremities or head) *Use of iterative reconstruction technique DLP: 402 mGy-cm FINDINGS: LUNGS: The reported 6 mm right lower lobe nodule corresponds to a pulmonary blood vessel. No discrete nodule at this site. There is a semisolid nodule with irregular margins in the medial left lung apex on series 4-127 measuring 1.4 x 0.7 cm in size, similar to recent prior 01/16/2022. Similarly, there is a 3 x 2.4 cm air cyst in the right upper lobe with irregular mural thickening and mild nodularity, also similar to prior in overall size. The surrounding soft tissue thickening appears slightly more conspicuous. No new pulmonary nodules. Suture material in the medial right lung apex consistent with prior surgery/resection. Mild centrilobular and paraseptal emphysema. Curvilinear areas of subsegmental atelectasis or scarring in the lung bases and right middle lobe. No airspace consolidation. Central airways are clear. MEDIASTINUM: Cardiomegaly with prominent biatrial enlargement. Coronary artery vascular calcifications of the LAD and left circumflex coronary arteries. Normal caliber thoracic aorta. Central pulmonary trunk is dilated measuring 3.8 cm in diameter, unchanged. No mediastinal or hilar lymphadenopathy by size criteria. 1.5 cm low-density right thyroid nodule, unchanged. CORONARY ARTERY CALCIFICATION: Resident PLEURA: Trace left pleural fluid/effusion. No right pleural effusion. AXILLA: No lymphadenopathy. Left axillary vascular stent UPPER ABDOMEN: Pancreatic parenchymal calcifications and incompletely imaged masslike fullness in the pancreatic head and neck. Moderate biliary ductal dilation. Thickening of the left adrenal gland. Small low-density renal cysts. Splenosis. OSSEOUS STRUCTURES: No acute fracture or suspicious osseous lesion. CT/CT chest wo IV con IMPRESSION: 1. No evidence of 6 mm right lower lobe pulmonary nodule. The finding on the CT abdomen pelvis corresponds to a pulmonary blood vessel. 2. Unchanged 1.4 x 0.7 cm semisolid nodule in the medial left lung apex. 3. Unchanged 3 x 2.4 cm air cyst in the right upper lobe with irregular mural thickening and nodularity. Suggest 6 month follow-up as previously advised on the chest CT 01/16/2022. 4. No new pulmonary nodules. 5. Cardiomegaly with prominent biatrial enlargement. 6. Incompletely imaged masslike fullness in the pancreatic head and neck with moderate biliary ductal dilation. Suggest further evaluation with pancreatic protocol CT or MRI. 7. Additional ancillary findings, as described.
--- NOTE | 2022-03-11 11:51 | ECG_ITS ---
Test Reason : Dysrhythmia Blood Pressure : / mmHG Vent. Rate : 101 BPM Atrial Rate : 340 BPM P-R Int : 000 ms QRS Dur : 086 ms QT Int : 372 ms P-R-T Axes : 000 -50 165 degrees QTc Int : 482 ms Atrial fibrillation with RVR Left anterior fascicular block ST & T wave abnormality, consider lateral ischemia Abnormal ECG When compared with ECG of 16-JAN-2022 10:50, Lateral ST-T changes present Referred By: Alecia Lott Electronically Signed By:Raúl Ford
--- NOTE | 2022-03-11 11:52 | ED_ITS ---
HPI - Abdominal Pain General Chief Complaint: Abdominal Pain Stated Complaint: ABD PAIN DURING DIALYSIS, COMPLETED Time Seen by Provider: 03/11/22 11:46 Source: EMS and old records reviewed Mode of arrival: EMS Limitations: physical limitation History of Present Illness HPI narrative: 67-year-old minimally verbal male with history of ESRD on HD, DM on insulin, CHF, AFib on Eliquis, pulmonary hypertension, opiate dependence in remission, neuropathy, history of stroke, heart attack who presents to the ER for eval uation of abdominal pain from his dialysis center. Patient is unable to provide accurate history. Per EMS patient completed his dialysis session was but was complaining of abdominal pain. On arrival to the ER he appears comfortable but is tachycardic, abd is distended and firm. MD elicited complaint: abdominal pain Onset (ago): unknown Location: diffuse Related Data Home Medications Medication Instructions Recorded Confirmed acetaminophen 325 mg tablet 650 mg PO Q6H PRN Pain (Scale 01/16/22 01/16/22 Score 1-3) apixaban 2.5 mg tablet 2.5 mg PO MOWEFR@0900 01/16/22 01/16/22 apixaban 2.5 mg tablet (Eliquis) 2.5 mg PO SUTUTHSA@0900 01/16/22 01/16/22 apixaban 2.5 mg tablet (Eliquis) 2.5 tab PO SUTUTHSA@2100 01/16/22 01/16/22 atorvastatin 80 mg tablet 40 mg PO BEDTIME 01/16/22 01/16/22 bisacodyl 10 mg rectal suppository 10 mg AR DAILY PRN Constipation 01/16/22 01/16/22 carvedilol 12.5 mg tablet 12.5 mg PO MOWEFR@0900 01/16/22 01/16/22 carvedilol 12.5 mg tablet 12.5 mg PO SUTUTHSA@0900 01/16/22 01/16/22 carvedilol 12.5 mg tablet 12.5 mg PO SUTUTHSA@2100 01/16/22 01/16/22 famotidine 20 mg tablet (Pepcid) 20 mg PO DAILY 01/16/22 01/16/22 gabapentin 100 mg capsule 100 mg PO TID 01/16/22 01/16/22 glucagon HCl 1 mg solution for 1 mg subcut Q20M PRN bg <60 and 01/16/22 01/16/22 injection (Glucagon (HCl) unresponsive Emergency Kit) insulin glargine 100 unit/mL 8 unit subcut BEDTIME 01/16/22 01/16/22 subcutaneous solution (Lantus U-100 Insulin) insulin lispro 100 unit/mL 1 sliding scale dose subcut BIDAC 01/16/22 01/16/22 subcutaneous solution (Humalog U-100 Insulin) ipratropium 20 mcg-albuterol 100 1 puff inhalation QID 01/16/22 01/16/22 mcg/actuation mist for inhalation (Combivent Respimat) uepfqg-aijmeqsi-rqrwmrw 1 cap PO BID@1400,2000 01/16/22 01/16/22 5,000-17,000-24,000 unit capsule, delayed rel (Zenpep) youiao-umqgipft-xpzccxe 1 cap PO MOWEFR@0600 01/16/22 01/16/22 5,000-17,000-24,000 unit capsule, delayed rel (Zenpep) lejcif-ysuatyuu-gehhmfr 1 cap PO SUTUTHSA@0900 01/16/22 01/16/22 5,000-17,000-24,000 unit capsule, delayed rel (Zenpep) nicotine (polacrilex) 2 mg gum 2 mg buccal Q2H PRN Nicotine 01/16/22 01/16/22 Cravings nifedipine 60 mg tablet,extended 60 mg PO MOWEFR@0900 01/16/22 01/16/22 release nifedipine 60 mg tablet,extended 60 mg PO SUTUTHSA@0900 01/16/22 01/16/22 release nifedipine 60 mg tablet,extended 60 mg PO SUTUTHSA@2100 01/16/22 01/16/22 release nitroglycerin 0.4 mg sublingual 0.4 mg sublingual Q5M PRN chest 01/16/22 01/16/22 tablet pain oxycodone 5 mg tablet 5 mg PO Q6H PRN Pain (Scale Score 01/16/22 01/16/22 4-6) sertraline 25 mg tablet 25 mg PO DAILY 01/16/22 01/16/22 sertraline 50 mg tablet 50 mg PO DAILY 01/16/22 01/16/22 ticagrelor 90 mg tablet 90 mg PO MOWEFR@0900 01/16/22 01/16/22 ticagrelor 90 mg tablet 90 mg PO SUTUTHSA@0900 01/16/22 01/16/22 ticagrelor 90 mg tablet 90 mg PO SUTUTHSA@2100 01/16/22 01/16/22 tizanidine 4 mg tablet 1 tab PO BID@1300,1700 01/16/22 01/16/22 tizanidine 4 mg tablet 1 tab PO MOWEFR@0600 01/16/22 01/16/22 tizanidine 4 mg tablet 1 tab PO SUTUTHSA@0900 01/16/22 01/16/22 vitamin B complex-vitamin C-folic 1 tab PO DAILY 01/16/22 01/16/22 acid 0.8 mg tablet white petrolatum-mineral oil 1 appl topical QID PRN Dry Skin 01/16/22 01/16/22 topical cream Allergies Allergy/AdvReac Type Severity Reaction Status Date / Time No Known Allergies Allergy Verified 09/28/21 08:34 Review of Systems Review of Systems Constitutional: No Fever, No Chills ENT/Mouth: No sore throat, No Rhinorrhea Cardiovascular: No Chest Pain, No SOB Respiratory: No Cough, No Sputum Gastrointestinal: No Nausea, No Vomiting, No Diarrhea, + abdominal Pain, No Hematochezia, No Melena Musculoskeletal: No joint pain, No Myalgias Skin: No Skin Lesions, No rash Neuro: No Weakness,No Dizziness, No Headache Heme/Lymph: No Bruising, No Lymphadenopathy PMFSH Past Medical History Medical History Acute CVA (cerebrovascular accident) Afib Anemia BPH (benign prostatic hyperplasia) Chronic back pain ESRD (end stage renal disease) HTN (hypertension) Opiate dependence Pneumothorax Pulmonary hypertension STEMI (ST elevation myocardial infarction) Surgical History H/O splenectomy Hx of cholecystectomy Social History Social History Alcohol intake: former Patient Tobacco Use Status: Former Tobacco user Advance Directives: No Physical Exam ED Vital Signs: Vital Signs - 24 hr 03/11/22 11:56 03/11/22 12:24 03/11/22 15:42 Temperature 98.8 F 98.8 F Pulse Rate 94 125 H 110 H Respiratory Rate 16 18 18 Blood Pressure 152/103 H 152/103 H 181/99 H Pulse Oximetry 98 98 Oxygen Delivery Method Room Air Room Air BMI result Body Mass Index 20.3 Appearance: Alert elderly male, appears chronically ill and older than states age. No acute distress. Eyes: Pupils equal, round and reactive to light. ENT: Pharynx normal. Neck: Normal inspection. Neck supple. CVS: Normal heart rate and rhythm. Pulses normal. Respiratory: No respiratory distress. Breath sounds normal. Abdomen: Well healed longitudinal surgical scar. abd is slightly distended and firm throughout with guarding in the lower abdomen, hperactive BS x4. NIDIA: dilated rectum with light brown, semi-hard stool in the rectal vault Skin: Skin warm and dry. Normal skin color. Normal skin turgor. No rashes. Extremities: No lower extremity edema. Right hand contracted. Neuro: minimally verbal, answers Y/N questions and can follow simple commands. RUE contacted Procedures Rectal Disimpaction Time out performed rectal disimpaction: Yes Indication: fecal impaction Procedural Sedation: No Sedation/Analgesia: none Technique: manual disimpaction with gloved finger Result: unable to disimpact Complications: unable to tolerate Course Course Course Narrative: 67-year-old male with history of end-stage renal disease on dialysis, AFib on Eliquis, pulmonary hypertension, opiate dependence in remission, STEMI, HTN, anemia, stroke who presents to the ER from dialysis session complaining of abdominal pain. Patient is difficult to get a history out of. He comes for monitoring and they report he is not his baseline function, unable to walk and pivot. On arrival to the ER patient's abdomen is firm and slightly distended with diffuse tenderness, guarding in the lower abdomen. No vomiting. Will get CT scan of the abdomen for further evaluation. Reevaluation(s) Reevaluation #1: Lab workup shows stable anemia. No leukocytosis. Called with a critical result from [facility]. Patient has what looks like a pancreatic mass, concerning for primary lid malignancy. This was seen on prior CT in January. They recommended a dedicated pancreas CT versus MRI. Patient also has findings suggestive of stercoral colitis with 8 cm stool ball in the rectum. Patient did not tolerate disimpaction and refused further intervention after 1 attempt. Ordered for Fleet enema and oral laxatives. Given the extent of his CT findings will plan for admission for further management. Reevaluation #2: Dr. Medley from Surgery came to evaluate the patient - recommending oral laxa tives and enemas for now and will assess effect. Will admit to medicine. Consultations Consultation #1: General surgery-Dr. Medley Medications Administered Discontinued Medications Generic Name Dose Route Start Last Admin Trade Name Marky PRN Reason Stop Dose Admin Docusate Sodium 200 mg 03/11/22 15:10 03/11/22 15:46 Docusate Sodium 100 Mg Capsule PO 03/11/22 15:11 200 mg ONCE ONE Administration Polyethylene Glycol 17 gm 03/11/22 15:10 03/11/22 15:46 Polyethylene Glycol 3350 17 Gm Powd.Pack PO 03/11/22 15:11 17 gm ONCE ONE Administration Senna 15 ml 03/11/22 15:10 03/11/22 15:46 Senna Hasty Extract Oral Syrup 15 Ml Syrup PO 03/11/22 15:11 15 ml ONCE ONE Administration Sodium Biphosphate/Sodium Phosphate 133 ml 03/11/22 14:11 03/11/22 15:23 Sodium Phosphate,[place]-Dibasic 133 Ml Enema AR 03/11/22 14:12 133 ml ONCE ONE Administration MDM - Abdominal Pain Medical Records Attestation: I reviewed the patient's medical records. Lab Data Attestation: I reviewed the patient's lab results. Result diagrams: 03/11/22 12:50 03/11/22 12:50 Labs: Lab Results 03/11/22 03/11/22 03/11/22 Range/Units 12:50 12:50 12:50 WBC 9.1 (4.8-10.8) X10*3/uL RBC 4.13 L (4.60-5.80) X10*6/uL Hgb 10.9 L (14.0-18.0) g/dl Hct 34.5 L (42.0-52.0) % MCV 83.5 (80.0-98.0) fL MCH 26.4 L (27.0-33.0) pg MCHC 31.6 (31.0-36.0) g/dl RDW 15.8 (11.0-16.0) % Plt Count 292 (160-400) X10*3/uL MPV 11.2 (9.4-12.4) fL Immature Gran % (Auto) 0.3 (0.0-0.4) % Neut % (Auto) 82.4 H (45-73) % Lymph % (Auto) 8.8 L (20-40) % [place] % (Auto) 7.6 (2-11) % Eos % (Auto) 0.6 (0-4) % Baso % (Auto) 0.3 (0-2) % Lymph # (Auto) 0.8 L (1.2-4.9) X10*3/uL [place] # (Auto) 0.7 (0.1-1.2) X10*3/uL Eos # (Auto) 0.1 (0.0-0.4) X10*3/uL Baso # (Auto) 0.0 (0.0-0.2) X10*3/uL Abs Immat Gran (auto) 0.03 (0.00-0.03) X10*3/uL Absolute Neuts (auto) 7.5 (2.0-8.3) x10*3/uL Absolute Nucleated RBC 0.000 (0.0-0.012) X10*3/uL Nucleated RBC % (auto) 0.0 (0.0-0.2) /100WBC Sodium 134 L (135-145) mmol/L Potassium 4.2 (3.3-5.1) mmol/L Chloride 91 L (96-108) mmol/L Carbon Dioxide 31 H (22-29) mmol/L Anion Gap 16 (12-20) BUN 18 H (9-16) mg/dL Creatinine 3.25 H (0.5-1.4) mg/dL Estim Creat Clear Calc 20.6 Estimated GFR 19 Random Glucose 135 H (60-115) mg/dL Calcium 10.0 (8.4-10.2) mg/dL Magnesium 2.1 (1.6-2.6) mg/dL Total Bilirubin 0.8 (0.0-1.0) mg/dL Direct Bilirubin 0.3 (0.0-0.5) mg/dL AST 43 H (5-37) U/L ALT 32 (0-40) U/L Alkaline Phosphatase 248 H (39-117) U/L Total Protein 7.9 (6.5-8.0) g/dL Albumin 4.4 (3.5-5.0) g/dL COVID-19 (EDISI) Negative (Negative) COVID-19 Clin Com See Note ECG Data Attestation: I personally reviewed and interpreted this ECG as follows: ECG interpretation date: 03/11/22 ECG interpretation time: 16:19 Prior ECG tracings: available for review Interpretation: Irregular rhythm, ventricular rate 101 beats per minute, artifact present, question of atrial fibrillation versus atrial flutter. Nonspecific ST & T-wave abnormality, Discharge Plan Discharge Clinical Impression: Stercoral colitis, Pancreatic mass, End stage renal disease on dialysis Patient Disposition: Admitted As Inpatient
[2022-03-11 11:55] VITALS: BP 190/100; PULSE 110; O2SAT 97
[2022-03-11 11:56] VITALS: BP 152/103; PULSE 94; RESP 16; TEMP 37.1; O2SAT 98; BMI 20.3
[2022-03-11 12:24] VITALS: BP 152/103; PULSE 125; RESP 18; TEMP 37.1; O2SAT 98
[2022-03-11 12:55] LABS: MANUAL DIFF FLAG NO
[2022-03-11 13:12] LABS: COVID-19 Test Negative (Negative); IDNOW Serial# 16C4AD1C
[2022-03-11 13:13] LABS: Basophils Percent Auto 0.3 % (0-2); Eosinophils Absolute Auto 0.1 X10*3/uL (0.0-0.4); Eosinophils Percent Auto 0.6 % (0-4); Hematocrit 34.5 % (42.0-52.0); Hemoglobin 10.9 g/dl (14.0-18.0); Imm Gran Abs Auto 0.03 X10*3/uL (0.00-0.03); Imm Gran Pct Auto 0.3 % (0.0-0.4); Lymphocytes Absolute Auto 0.8 X10*3/uL (1.2-4.9); Lymphocytes Percent Auto 8.8 % (20-40); Mean Corpuscular HGB Conc 31.6 g/dl (31.0-36.0); Mean Corpuscular Hemoglobin 26.4 pg (27.0-33.0); Mean Corpuscular Volume 83.5 fL (80.0-98.0); Mean Platelet Volume 11.2 fL (9.4-12.4); Monocytes Absolute Auto 0.7 X10*3/uL (0.1-1.2); Monocytes Percent Auto 7.6 % (2-11); Neutrophils Absolute Auto 7.5 x10*3/uL (2.0-8.3); Neutrophils Percent Auto 82.4 % (45-73); Platelet Count 292 X10*3/uL (160-400); Red Blood Count 4.13 X10*6/uL (4.60-5.80); Red Cell Distribution Width 15.8 % (11.0-16.0); White Blood Count 9.1 X10*3/uL (4.8-10.8)
[2022-03-11 13:29] LABS: Alanine Aminotransferase 32 U/L (0-40); Albumin Level 4.4 g/dL (3.5-5.0); Alkaline Phosphatase 248 U/L (39-117); Anion Gap 16 (12-20); Aspartate Amino Transferase 43 U/L (5-37); Bilirubin Direct 0.3 mg/dL (0.0-0.5); Bilirubin Total 0.8 mg/dL (0.0-1.0); Blood Urea Nitrogen 18 mg/dL (9-16); Carbon Dioxide 31 mmol/L (22-29); Chloride 91 mmol/L (96-108); Creatinine Clr Calc Pharmacy 20.6; Estimated Glomerular Filt Rate 19; Glucose Random 135 mg/dL (60-115); Magnesium 2.1 mg/dL (1.6-2.6); Potassium 4.2 mmol/L (3.3-5.1); Sodium 134 mmol/L (135-145); Total Protein 7.9 g/dL (6.5-8.0)
[2022-03-11] MEDS: Sodium Phosphate,Mono-Dibasic 133 ML ENEMA PR (15:23)
[2022-03-11 15:42] VITALS: BP 181/99; PULSE 110; RESP 18
[2022-03-11] MEDS: polyethylene glycoL 3350 17 GM POWD.PACK PO (15:46)
[2022-03-11] MEDS: Docusate Sodium 100 MG CAPSULE 200 MG PO (15:46)
--- NOTE | 2022-03-11 15:52 | PC.NURSE ---
pt. alert. unable to assess orientation, he speaks very little. respond to some yes or no questions. he agreed to an enema and PO stool softener and laxatives. he groans with pain which appears to be related trying to have a bowel movement. He has been unsuccessful so far.
--- NOTE | 2022-03-11 16:14 | P.CONGS_ITS ---
History of Present Illness Consult details Consult date: 03/11/22 Requesting physician: Alecia Lott Narrative: 67-year-old male patient presenting to the emergency department with complaints of abdominal pain. Patient was undergoing dialysis today when the abdominal pain became so severe that the dialysis was halted. Evaluation in the emergency department revealed diffuse tenderness. Patient has a history of ESRD on HD, DM on insulin, CHF, AFib on Eliquis, pulmonary hypertension, opiate dependence in remission, neuropathy, history of stroke, an AL. he is mostly nonverbal is unable to express his current symptoms. Admitting laboratories revealed a WBC of 9.1 BUN of 18, and normal liver function tests. CT reveals a large stool ball in the rectum. There is also an enlarging pancreatic mass with CBD dilatation. The pancreatic duct is dilated to 7 mm and the pancreatic neck measures 4.3 cm , suspicious for pancreatic mass. A lung nodules also partially identified. Review of Systems Review of Systems: Yes Unobtainable due to mental status PMFSH Past Medical History Medical History Acute CVA (cerebrovascular accident) Afib Anemia BPH (benign prostatic hyperplasia) Chronic back pain ESRD (end stage renal disease) HTN (hypertension) Opiate dependence Pneumothorax Pulmonary hypertension STEMI (ST elevation myocardial infarction) Surgical History Surgical History H/O splenectomy Hx of cholecystectomy Social History Social History Alcohol intake: former Patient Tobacco Use Status: Former Tobacco user Advance Directives: No Meds Allergies Allergy/AdvReac Type Severity Reaction Status Date / Time No Known Allergies Allergy Verified 09/28/21 08:34 Home Medications Medication Instructions Recorded Confirmed Last Taken Type acetaminophen 325 mg tablet 650 mg PO Q6H PRN Pain (Scale 01/16/22 01/16/22 Unknown History Score 1-3) apixaban 2.5 mg tablet 2.5 mg PO MOWEFR@0900 01/16/22 01/16/22 Unknown History apixaban 2.5 mg tablet (Eliquis) 2.5 mg PO SUTUTHSA@0900 01/16/22 01/16/22 Unknown History apixaban 2.5 mg tablet (Eliquis) 2.5 tab PO SUTUTHSA@2100 01/16/22 01/16/22 Unknown History atorvastatin 80 mg tablet 40 mg PO BEDTIME 01/16/22 01/16/22 Unknown History bisacodyl 10 mg rectal suppository 10 mg MD DAILY PRN Constipation 01/16/22 01/16/22 Unknown History carvedilol 12.5 mg tablet 12.5 mg PO MOWEFR@0900 01/16/22 01/16/22 Unknown History carvedilol 12.5 mg tablet 12.5 mg PO SUTUTHSA@0900 01/16/22 01/16/22 Unknown History carvedilol 12.5 mg tablet 12.5 mg PO SUTUTHSA@2100 01/16/22 01/16/22 Unknown History famotidine 20 mg tablet (Pepcid) 20 mg PO DAILY 01/16/22 01/16/22 Unknown History gabapentin 100 mg capsule 100 mg PO TID 01/16/22 01/16/22 Unknown History glucagon HCl 1 mg solution for 1 mg subcut Q20M PRN bg <60 and 01/16/22 01/16/22 Unknown History injection (Glucagon (HCl) unresponsive Emergency Kit) insulin glargine 100 unit/mL 8 unit subcut BEDTIME 01/16/22 01/16/22 Unknown History subcutaneous solution (Lantus U-100 Insulin) insulin lispro 100 unit/mL 1 sliding scale dose subcut BIDAC 01/16/22 01/16/22 Unknown History subcutaneous solution (Humalog U-100 Insulin) ipratropium 20 mcg-albuterol 100 1 puff inhalation QID 01/16/22 01/16/22 Unknown History mcg/actuation mist for inhalation (Combivent Respimat) dcgzgf-fayuopum-ycmlywg 1 cap PO BID@1400,2000 01/16/22 01/16/22 Unknown History 5,000-17,000-24,000 unit capsule, delayed rel (Zenpep) dtyxuc-ajlmxsnt-fptvrsy 1 cap PO MOWEFR@0600 01/16/22 01/16/22 Unknown History 5,000-17,000-24,000 unit capsule, delayed rel (Zenpep) nveozo-tnalsquo-ytajvmu 1 cap PO SUTUTHSA@0900 01/16/22 01/16/22 Unknown History 5,000-17,000-24,000 unit capsule, delayed rel (Zenpep) nicotine (polacrilex) 2 mg gum 2 mg buccal Q2H PRN Nicotine 01/16/22 01/16/22 Unknown History Cravings nifedipine 60 mg tablet,extended 60 mg PO MOWEFR@0900 01/16/22 01/16/22 Unknown History release nifedipine 60 mg tablet,extended 60 mg PO SUTUTHSA@0900 01/16/22 01/16/22 Unknown History release nifedipine 60 mg tablet,extended 60 mg PO SUTUTHSA@2100 01/16/22 01/16/22 Unkn own History release nitroglycerin 0.4 mg sublingual 0.4 mg sublingual Q5M PRN chest 01/16/22 01/16/22 Unknown History tablet pain oxycodone 5 mg tablet 5 mg PO Q6H PRN Pain (Scale Score 01/16/22 01/16/22 Unknown History 4-6) sertraline 25 mg tablet 25 mg PO DAILY 01/16/22 01/16/22 Unknown History sertraline 50 mg tablet 50 mg PO DAILY 01/16/22 01/16/22 Unknown History ticagrelor 90 mg tablet 90 mg PO MOWEFR@0900 01/16/22 01/16/22 Unknown History ticagrelor 90 mg tablet 90 mg PO SUTUTHSA@0900 01/16/22 01/16/22 Unknown History ticagrelor 90 mg tablet 90 mg PO SUTUTHSA@2100 01/16/22 01/16/22 Unknown History tizanidine 4 mg tablet 1 tab PO BID@1300,1700 01/16/22 01/16/22 Unknown History tizanidine 4 mg tablet 1 tab PO MOWEFR@0600 01/16/22 01/16/22 Unknown History tizanidine 4 mg tablet 1 tab PO SUTUTHSA@0900 01/16/22 01/16/22 Unknown History vitamin B complex-vitamin C-folic 1 tab PO DAILY 01/16/22 01/16/22 Unknown History acid 0.8 mg tablet white petrolatum-mineral oil 1 appl topical QID PRN Dry Skin 01/16/22 01/16/22 Unknown History topical cream Physical Exam Vital Signs: Vital Signs: Last Vital Signs Temp 98.8 F 03/11/22 12:24 Pulse 110 H 03/11/22 15:42 Resp 18 03/11/22 15:42 BP 181/99 H 03/11/22 15:42 Pulse Ox 98 03/11/22 12:24 O2 Del Method 03/11/22 12:24 BMI result Body Mass Index 20.3 Const: Other: Awake, nonverbal to questioning. Appears confused and lethargic HEENT: Head: Yes normocephalic and Yes atraumatic Ears: hearing grossly normal bilaterally Resp: Effort & Inspection: normal respiratory effort, no audible wheezes, no cough and no respiratory distress GI: Inspection: No distended Palpation (GI): Soft to palpation, nontender, no guarding and no masses Percussion: Yes dullness to percussion Auscultation: normal bowel sounds Rectal Exam - Male: Yes deferred Skin: General skin exam: no rashes or lesions noted Extrem: General: Yes no clubbing, cyanosis or edema Results Labs Result diagrams: 03/11/22 12:50 03/11/22 12:50 Labs: Abnormal lab results 03/11/22 03/11/22 Range/Units 12:50 12:50 RBC 4.13 L (4.60-5.80) X10*6/uL Hgb 10.9 L (14.0-18.0) g/dl Hct 34.5 L (42.0-52.0) % MCH 26.4 L (27.0-33.0) pg Neut % (Auto) 82.4 H (45-73) % Lymph % (Auto) 8.8 L (20-40) % Lymph # (Auto) 0.8 L (1.2-4.9) X10*3/uL Sodium 134 L (135-145) mmol/L Chloride 91 L (96-108) mmol/L Carbon Dioxide 31 H (22-29) mmol/L BUN 18 H (9-16) mg/dL Creatinine 3.25 H (0.5-1.4) mg/dL Random Glucose 135 H (60-115) mg/dL AST 43 H (5-37) U/L Alkaline Phosphatase 248 H (39-117) U/L Short CBC 03/11/22 Range/Units 12:50 WBC 9.1 (4.8-10.8) X10*3/uL Hgb 10.9 L (14.0-18.0) g/dl Hct 34.5 L (42.0-52.0) % Plt Count 292 (160-400) X10*3/uL BMP 03/11/22 12:50 Sodium 134 L Potassium 4.2 Chloride 91 L Carbon Dioxide 31 H BUN 18 H Creatinine 3.25 H Calcium 10.0 Liver Function 03/11/22 Range/Units 12:50 Total Bilirubin 0.8 (0.0-1.0) mg/dL Direct Bilirubin 0.3 (0.0-0.5) mg/dL AST 43 H (5-37) U/L ALT 32 (0-40) U/L Alkaline Phosphatase 248 H (39-117) U/L Albumin 4.4 (3.5-5.0) g/dL All other labs normal. Assessment and Plan (1) Stercoral colitis: Status: Acute (2) Pancreatic mass: Status: Acute (3) End stage renal disease on dialysis: Status: Acute Plan unfortunate 67-year-old male with multiple medical problems presenting with probable stercoral colitis and enlarging pancreatic mass. Patient is refusing rectal examination and disimpaction. Agree with gentle cathartic with stool so ftener, MiraLax, Mineral oil. If no effect with stool softeners and MiraLax, consider fleets enema. Patient will need workup for his pancreatic mass as well with either MRI or CT with pancreatic protocol. Procedures Date of Service Date of Service: 03/11/22
--- NOTE | 2022-03-11 17:03 | P.HPHOSP_ITS ---
History of Present Illness Date of Service: 03/11/22 Chief Complaint: constipation ?67-year-old male with ESRD on dialysis, Afb on Eliquis, h/o CVA, h/o opiiod use desordern, HTN, CAD, resisdes [place] sent to be evaluated for abdominal pain that was severe. He reportedly had pain after dialysis today and has not been himself, weak, unable to ambulate properly. ED work up revealed WBC of 9.1 BUN of 18, and normal liver function tests.? CT reveals a large 8 cm stool ball in the rectum.? There is also an enlarging pancreatic mass with CBD dilatation.? The pancreatic duct is dilated to 7 mm and the pancreatic neck measures 4.3 cm , suspicious for pancreatic mass.? A lung nodules is also partially visualized. Attempt by ED staff for desimpaction was unsuccesful. He was evaluated by Dr. Medley with the following remarks Patient is refusing rectal examination and disimpaction.? Agree with gentle cathartic? with stool softener, MiraLax, ? Mineral oil. ? If no effect with stool softeners and MiraLax, consider fleets enema.? Patient will need workup for his pancreatic mass as well with either MRI or CT with pancreatic protocol. Review of Systems Review of Systems: Gen: no fever Resp: no sob, no cough CV: no chest, no LEW, no leg edema GI: No n/v, no abd pain at time of my eval Neuro: No confusion Yes all other systems are reviewed and are negative [facility] Medical History Acute CVA (cerebrovascular accident) Afib Anemia BPH (benign prostatic hyperplasia) Chronic back pain End stage renal disease on dialysis ESRD (end stage renal disease) HTN (hypertension) Opiate dependence Pneumothorax Pulmonary hypertension STEMI (ST elevation myocardial infarction) Surgical History H/O splenectomy Hx of cholecystectomy Social History Household Members: None Housing: [facility] Do you presently have visiting nurse or other home services: No Alcohol intake: former Patient Tobacco Use Status: Former Tobacco user Advance Directives: Yes Advance Directives Information Provided: No Advance Directives on File: No Meds Allergies Allergy/AdvReac Type Severity Reaction Status Date / Time No Known Allergies Allergy Verified 09/28/21 08:34 Home Medications Medication Instructions Recorded Confirmed Last Taken Type acetaminophen 325 mg tablet 650 mg PO Q6H PRN Pain (Scale 01/16/22 03/12/22 Unknown History Score 1-3) atorvastatin 80 mg tablet 40 mg PO BEDTIME 01/16/22 03/12/22 Unknown History bisacodyl 10 mg rectal suppository 10 mg NH DAILY PRN Constipation 01/16/22 03/12/22 Unknown History famotidine 20 mg tablet (Pepcid) 20 mg PO MOWEFR@0600 01/16/22 03/12/22 Unknown History gabapentin 100 mg capsule 100 mg PO TID 01/16/22 03/12/22 Unknown History glucagon HCl 1 mg solution for 1 mg subcut Q5M PRN LETHARGY, BS 01/16/22 03/12/22 Unknown History injection (Glucagon (HCl) <110 Emergency Kit) insulin glargine 100 unit/mL 8 unit subcut BEDTIME 01/16/22 03/11/22 Unknown History subcutaneous solution (Lantus U-100 Insulin) insulin lispro 100 unit/mL 1 sliding scale dose subcut TIDAC 01/16/22 03/12/22 Unknown History subcutaneous solution (Humalog U-100 Insulin) hkbshn-gyyrftvr-qdlortb 1 cap PO MOWEFR@,,01/16/22 03/12/22 Unknown History 5,000-17,000-24,000 unit capsule, delayed rel (Zenpep) ofuzmj-fjynyzxh-rlawbdv 1 cap PO SUTUTHSA@,,01/16/22 03/12/22 Unknown History 5,000-17,000-24,000 unit capsule, delayed rel (Zenpep) sertraline 25 mg tablet 75 mg PO DAILY 01/16/22 03/12/22 Unknown History ticagrelor 90 mg tablet 90 mg PO MOWEFR@0900 01/16/22 03/12/22 Unknown History ticagrelor 90 mg tablet 90 mg PO SUTUTHSA@0900,2100 01/16/22 03/12/22 Unknown History tizanidine 4 mg tablet 1 tab PO MOWEFR@0600,14,20 01/16/22 03/12/22 Unknown History tizanidine 4 mg tablet 1 tab PO SUTUTHSA@0900,14,20 01/16/22 03/12/22 Unknown History vitamin B complex-vitamin C-folic 1 tab PO MOWEFR@0600 01/16/22 03/12/22 Unknown History acid 0.8 mg tablet white petrolatum-mineral oil 1 appl topical QID PRN Dry Skin 01/16/22 03/12/22 Unknown History topical cream apixaban 2.5 mg tablet (Eliquis) 2.5 mg PO SUTUTHSA@09,20 03/11/22 03/12/22 Unknown History carvedilol 12.5 mg tablet 12.5 mg PO SUTUTHSA@10,18 03/11/22 03/12/22 Unknown History nifedipine 60 mg tablet,extended 60 mg PO SUTUTHSA@,20 03/11/22 03/12/22 Unknown History release oxycodone 5 mg tablet 5 mg PO TID PRN Pain, Moderate 03/11/22 03/12/22 Unknown History apixaban 2.5 mg tablet (Eliquis) 2.5 mg PO MOWEFR@1800 03/12/22 03/12/22 Unknown History carvedilol 12.5 mg tablet 12.5 mg PO MOWEFR@18 03/12/22 03/12/22 Unknown History docusate sodium 100 mg capsule 100 mg PO MOWEFR@09 03/12/22 03/12/22 Unknown History famotidine 20 mg tablet 20 mg PO SUTUTHSA@0900 03/12/22 03/12/22 Unknown History ipratropium 20 mcg-albuterol 100 1 puff inhalation QID 03/12/22 03/12/22 Unknown History mcg/actuation mist for inhalation (Combivent Respimat) melatonin 3 mg tablet 3 mg PO BEDTIME PRN Sleep 03/12/22 03/12/22 Unknown History nifedipine 60 mg tablet,extended 60 mg PO DAILY@18 03/12/22 03/12/22 Unknown History release vitamin B complex-vitamin C-folic 1 tab PO SUTUTHSA@09 03/12/22 03/12/22 Unknown History acid 0.8 mg tablet Physical Exam Vital Signs and Narrative: Vital Signs: Last Vital Signs Temp 98.8 F 03/11/22 12:24 Pulse 110 H 03/11/22 15:42 Resp 18 03/11/22 15:42 BP 181/99 H 03/11/22 15:42 Pulse Ox 98 03/11/22 12:24 O2 Del Method 03/11/22 12:24 BMI result Body Mass Index 20.3 Const: Other: Constitutional: Alert, in no distress, not saying much Mental Status: Oriented to person, place and time. Eyes: Pupils are equal, round and reactive to light. Ear, Nose and Throat: Oropharynx clear, mucous membranes moist. Ears and nose without eformities. Trachea midline. Respiratory: Clear to auscultation. No wheezing, rales or rhonchi. Cardiovascular: S1 S2 regular. No murmurs, rubs or gallops. Gastrointestinal: Abdomen soft, non-tender, non-distended. Normal bowel sounds.? Neurologic: Cranial nerves II-XII grossly intact. No focal neurological deficits. Moves all extremities spontaneously.? Skin: No rashes or lesions.? Musculoskeletal: No cyanosis or clubbing. Psychiatric: Normal mood and affect? Results Labs 03/11/22 12:50 03/13/22 06:29 Labs: Laboratory Results - last 24 hr 03/11/22 03/11/22 03/11/22 12:50 12:50 12:50 MCV 83.5 MCH 26.4 L MCHC 31.6 RDW 15.8 Plt Count 292 MPV 11.2 Immature Gran % (Auto) 0.3 Neut % (Auto) 82.4 H Lymph % (Auto) 8.8 L [place] % (Auto) 7.6 Eos % (Auto) 0.6 Baso % (Auto) 0.3 Lymph # (Auto) 0.8 L [place] # (Auto) 0.7 Eos # (Auto) 0.1 Baso # (Auto) 0.0 Abs Immat Gran (auto) 0.03 Absolute Neuts (auto) 7.5 Absolute Nucleated RBC 0.000 Nucleated RBC % (auto) 0.0 Anion Gap 16 Estim Creat Clear Calc 20.6 Estimated GFR 19 Random Glucose 135 H Calcium 10.0 Magnesium 2.1 Total Bilirubin 0.8 Direct Bilirubin 0.3 AST 43 H ALT 32 Alkaline Phosphatase 248 H Total Protein 7.9 Albumin 4.4 COVID-19 (DEISI) Negative COVID-19 Clin Com See Note Imaging Radiologist's Impressions: Impressions Abdomen/Pelvis CT 03/11/22 12:44 IMPRESSION: There is focal masslike thickening in the pancreatic neck measuring approximately 4.3 cm raising the suspicion for a primary pancreatic mass. Pancreatic duct in the neck is dilated to 7 mm and there is moderate intrahepatic and severe extrahepatic biliary duct dilatation. Recommend further evaluation with CT pancreas protocol. Large desiccated stool ball within the rectum measuring 8 cm with wall thickening and minimal infiltration of the mesorectal fat which could be seen in the setting of stercoral colitis if clinical symptoms are appropriate. A 6 mm solid pulmonary nodule in the right lower lobe, incompletely imaged. If patient is determined to have a primary underlying malignancy recommend a CT chest for staging. If patient has no primary malignancy recommend follow-up per Fleischner Society recommendations. According to the UPDATED 2017 Fleischner Society recommendations, the advised followup imaging for a single 6-8 mm solid nodule is: LOW RISK PATIENT: CT at 6-12 months, then consider CT at 18-24 months. HIGH RISK PATIENT: CT at 6-12 months, then at 18-24 months. Trace perihepatic ascites. Similar adenomatous hyperplasia of the left adrenal gland without ari discrete nodule. Assessment and Plan (1) Stercoral colitis: Status: Resolved (2) Pancreatic mass: Status: Acute Plan ?67-year-old male with ESRD on dialysis, [employer] on Eliquis, h/o CVA, h/o opiiod use desordern, HTN, CAD, resisdes [place] sent to be evaluated for abdominal pain that was severe abdominal pain following dialysis and found to have severe constipation with Stercolitis, stool impaction, pancreatic mass and possible pulmonary nodule. 1/Severe constiapation, Stercoral colitis--failed disimpaction by ED provider. Seen by Dr. Medley with the following Patient is refusing rectal examination and disimpaction.? Agree with gentle cathartic? with stool softener, MiraLax, ? Mineral oil. ? If no effect with stool softeners and MiraLax, consider fleets enema.? Patient will need workup for his pancreatic mass as well with either MRI or CT with pancreatic protocol. -carry on bowel regimen as recommended by surgery, surgery to follow up 2/ Pancratic Mass--concern for malignancy--MR of abdoment 3/pulmonary nodule--decicated CT of chest 4/weakness and not able to walk--CT head 5/ AFIB, Coreg for rate control, Eliquis for stroke preventon 6/DM--Basal + Short acting insulin 7./HTN Coreg +Nifedipine 8/ESRD--Dialysis by Nephrology 9/Admission to [facility] at least 2 midnight for management of severe constipation, pancreatic mass, pulmonary mass and weakness Full CODe Quality Stroke Does the patient have a stroke diagnosis?: No VTE Prior VTE?: No VTE Risk Level:: Medical - moderate - high VTE Device Contraindication: Treatment Not Indicated VTE Drug Contraindication: N/A - Med Ordered
[2022-03-11 21:20] LABS: Glucose, Whole Blood 129 mg/dL (60-115)
--- NOTE | 2022-03-11 21:20 | PC.NURSE ---
Attempted to call report @[phone]
--- NOTE | 2022-03-11 21:53 | PC.NURSE ---
Colace held r/t patient had a large watery stool in addition to a formed large brown BM. Insulin held per protocol r/t blood sugar level was 129.
[2022-03-11 22:15] VITALS: BMI 18.9
[2022-03-11] MEDS: Acetaminophen 325 MG TABLET 650 MG PO (22:21)
[2022-03-11] MEDS: Melatonin 3 MG TABLET PO (22:22)
[2022-03-11 22:23] VITALS: BP 147/82; PULSE 87; RESP 17; TEMP 37.8; O2SAT 98
[2022-03-11] MEDS: Apixaban 5 MG TABLET PO (23:17)
[2022-03-11] MEDS: Docusate Sodium 100 MG CAPSULE PO (23:17)
[2022-03-11] MEDS: carvediloL 12.5 MG TABLET PO (23:17)
[2022-03-11] MEDS: 0.9 % Sodium Chloride Flush 3 ML SYRINGE IVFLUSH (23:19)
[2022-03-12 03:35] VITALS: BP 154/75; PULSE 82; RESP 18; TEMP 36.6; O2SAT 96
[2022-03-12 10:52] VITALS: BP 166/109; PULSE 84; RESP 20; O2SAT 96
[2022-03-12] MEDS: polyethylene glycoL 3350 17 GM POWD.PACK PO (11:05)
[2022-03-12] MEDS: carvediloL 12.5 MG TABLET PO ×2 (11:06→21:12)
[2022-03-12] MEDS: Apixaban 5 MG TABLET PO ×2 (11:06→21:12)
[2022-03-12] MEDS: hydrALAZINE HCl 50 MG TABLET 100 MG PO ×3 (11:06→21:11)
[2022-03-12] MEDS: Ticagrelor 90 MG TABLET PO ×2 (11:07→21:12)
[2022-03-12] MEDS: 0.9 % Sodium Chloride Flush 3 ML SYRINGE IVFLUSH ×3 (11:07→21:14)
[2022-03-12] MEDS: NIFEdipine ER 60 MG TAB.ER.24 PO ×2 (11:07→21:12)
[2022-03-12 11:22] LABS: Glucose, Whole Blood 129 mg/dL (60-115)
--- NOTE | 2022-03-12 14:38 | HO.PM.IMPN ---
Subjective Subjective Date of Service: 03/12/22 Interval History: pt not talking and as such unable to obtain ROS Review of Systems Review of Systems: Yes Unobtainable due to mental status Physical Exam Vital Signs: Vital Signs: Last Vital Signs Temp 97.8 F 03/12/22 03:35 Pulse 84 03/12/22 10:52 Resp 20 03/12/22 10:52 BP 166/109 H 03/12/22 10:52 Pulse Ox 96 03/12/22 10:52 O2 Del Method 03/12/22 03:35 BMI result Body Mass Index 18.9 Gen: in no acute distress, non-verbal HEENT: sclera anicteric, moist mucus membranes Neck: supple Lungs: clear to auscultation bilaterally Heart: regular rate and rhythm, no murmurs Abd: soft, non-tender, non-distended Ext: no edema Skin: warm/well-perfused Neuro: alert, non-verbal Psych: restricted affect Objective Data Active Medications Acetaminophen (Acetaminophen 325 Mg Tablet) 650 mg PO Q6H PRN PRN Reason: Pain, Mild (Pain Scale 1-3) Last Admin: 03/11/22 22:21 Dose: 650 mg Documented By: CAMMY Apixaban (Apixaban 5 Mg Tablet) 5 mg PO BID [facility] Last Admin: 03/12/22 11:06 Dose: 5 mg Documented By: JOSE Carvedilol (Carvedilol 12.5 Mg Tablet) 12.5 mg PO BID [facility]; Protocol Last Admin: 03/12/22 11:06 Dose: 12.5 mg Documented By: JOSE Clonidine (Clonidine 0.3 Mg Patch.Tdwk) 0.3 mg TRANSDERMA We@0900 [facility]; Protocol Docusate Sodium (Docusate Sodium 100 Mg Capsule) 100 mg PO BID [facility] Last Admin: 03/12/22 11:30 Dose: Not Given Documented By: JOSE Non-Admin Reason: Patient Refused Hydralazine HCl (Hydralazine Hcl 50 Mg Tablet) 100 mg PO TID [facility]; Protocol Last Admin: 03/12/22 14:25 Dose: 100 mg Documented By: JOSE Insulin Human Lispro (Insulin Lispro 100 Unit/Ml 3 Ml Vial) 0 unit SUBCUT QIDAS [facility]; Protocol Last Admin: 03/12/22 11:48 Dose: Not Given Documented By: JOSE Non-Admin Reason: No Insulin Coverage Magnesium Hydroxide (Milk Of Magnesia 30 Ml Oral.Susp) 30 ml PO DAILY PRN PRN Reason: Constipation Melatonin (Melatonin 3 Mg Tablet) 3 mg PO BEDTIME PRN PRN Reason: Insomnia Last Admin: 03/11/22 22:22 Dose: 3 mg Documented By: CAMMY Nifedipine (Nifedipine Er 60 Mg Tab.Er.24) 60 mg PO BID [facility] Last Admin: 03/12/22 11:07 Dose: 60 mg Documented By: JOSE Ondansetron HCl (Ondansetron Hcl 4 Mg/2 Ml Vial) 4 mg IVPUSH Q8H PRN PRN Reason: Nausea and Vomiting Polyethylene Glycol (Polyethylene Glycol 3350 17 Gm Powd.Pack) 17 gm PO DAILY [facility] Last Admin: 03/12/22 11:05 Dose: 17 gm Documented By: JOSE Sodium Biphosphate/Sodium Phosphate (Sodium Phosphate,[place]-Dibasic 133 Ml Enema) 133 ml [place] DAILY PRN PRN Reason: Constipation Sodium Chloride (0.9 % Sodium Chloride Flush 3 Ml Syringe) 3 ml IVFLUSH QSHIFT [facility] Last Admin: 03/12/22 14:25 Dose: 3 ml Documented By: JOSE Ticagrelor (Ticagrelor 90 Mg Tablet) 90 mg PO BID [facility] Last Admin: 03/12/22 11:07 Dose: 90 mg Documented By: JOSE Labs CBC & Chem 7: 03/11/22 12:50 03/11/22 12:50 Labs: Laboratory Results - last 24 hr 03/11/22 03/12/22 21:17 10:50 POC Glucose 129 H [address] 03/11/22 19:26 IMPRESSION: No acute intracranial pathology or change. Chest CT 03/11/22 19:52 IMPRESSION: 1. No evidence of 6 mm right lower lobe pulmonary nodule. The finding on the CT abdomen pelvis corresponds to a pulmonary blood vessel. 2. Unchanged 1.4 x 0.7 cm semisolid nodule in the medial left lung apex. 3. Unchanged 3 x 2.4 cm air cyst in the right upper lobe with irregular mural thickening and nodularity. Suggest 6 month follow-up as previously advised on the chest CT 01/16/2022. 4. No new pulmonary nodules. 5. Cardiomegaly with prominent biatrial enlargement. 6. Incompletely imaged masslike fullness in the pancreatic head and neck with moderate biliary ductal dilation. Suggest further evaluation with pancreatic protocol CT or MRI. 7. Additional ancillary findings, as described. Assessment and Plan (1) Stercoral colitis: Status: Acute Plan d#2 67yo M with ESRD on HD, AF on apixaban, prior CVA, hx of opioid use disorder, HTN, CAD who is a long-term resident at [facility] sent in from HD where he had severe abd pain. Found to have severe constipation with stercoral colitis/impaction, pancreatic mass, pulmonary nodule # severe constipation # stercoral colitis - failed disimpaction by ED. Seen by Gen Surgery- pt refused rectal exam + disimpaction. giving bowel regimen and pt had large BM this AM # pancreatic mass - MR abd # RUL pulmonary cyst - repeat CT in 6 mo # AF - rate control: carvedilol - anticoagulation: apixaban # hx CVA # CAD - continue ticagrelor # HTN - carvedilol + nifedipine + hydralazine + clonidine # DM2 - basal-bolus insulin # ESRD on HD - HD, Nephro consulted # VTE ppx: apixaban # dispo: eventual return to LTC at [facility] In my clinical judgment, the patient requires continued inpatient hospitalization for the following reasons: severe abd pain, workup of pancreatic mass Quality Stroke Does the patient have a stroke diagnosis?: No VTE Prior VTE?: No VTE Risk Level:: Medical - moderate - high VTE Device Contraindication: Treatment Not Indicated VTE Drug Contraindication: N/A - Med Ordered
--- NOTE | 2022-03-12 15:08 | PHA.MEDREC ---
Pharmacy Consult ? Medication Reconciliation Pharmacy has completed the medication reconciliation. MED REC COMPLETED USING MEDICATION REVIEW REPORT SENT FROM [facility]. I ALSO CALLED [facility] TO CLARIFY MEDICATIONS. THE DIALYSIS MEDICATION LIST SUPPLIED IN CHART IS NOT ACCURATE AND DOES NOT REFLECT THE SPECIFIC TIMING OF HIS MEDS ON DIALYSIS DAYS VS NON-DIALYSIS DAYS.
[2022-03-12 15:17] VITALS: BP 154/88; PULSE 85; RESP 18; TEMP 37.2; O2SAT 100
[2022-03-12 15:48] LABS: Glucose, Whole Blood 176 mg/dL (60-115)
[2022-03-12] MEDS: Insulin Lispro 100 UNIT/ML 3 ML VIAL SUBCUT ×2 (16:32→21:20)
--- NOTE | 2022-03-12 16:33 | PM.EVENT ---
Event Note Date of Service: 03/12/22 Event Note: Pt seen and examined Pt on HD Will arrange HD per schedule Full consult to follow D/w Medical team and Nursing staff
[2022-03-12 19:28] VITALS: BP 138/71; PULSE 77; RESP 18; TEMP 36.9; O2SAT 99
[2022-03-12 19:46] LABS: Glucose, Whole Blood 231 mg/dL (60-115)
[2022-03-12] MEDS: Docusate Sodium 100 MG CAPSULE PO (21:11)
[2022-03-13 04:00] VITALS: BP 156/87; PULSE 73; RESP 18; TEMP 36.9; O2SAT 94
[2022-03-13 07:37] LABS: Glucose, Whole Blood 152 mg/dL (60-115)
[2022-03-13] MEDS: Insulin Lispro 100 UNIT/ML 3 ML VIAL SUBCUT (07:50)
[2022-03-13] MEDS: 0.9 % Sodium Chloride Flush 3 ML SYRINGE IVFLUSH (07:51)
[2022-03-13 07:53] VITALS: BP 141/76; PULSE 68; RESP 17; TEMP 37.1; O2SAT 98
[2022-03-13 08:09] LABS: Alanine Aminotransferase 22 U/L (0-40); Albumin Level 3.8 g/dL (3.5-5.0); Alkaline Phosphatase 210 U/L (39-117); Anion Gap 17 (12-20); Aspartate Amino Transferase 20 U/L (5-37); Bilirubin Total 0.5 mg/dL (0.0-1.0); Blood Urea Nitrogen 40 mg/dL (9-16); Calcium 9.8 mg/dL (8.4-10.2); Carbon Dioxide 31 mmol/L (22-29); Chloride 99 mmol/L (96-108); Creatinine Clr Calc Pharmacy 11.7; Estimated Glomerular Filt Rate 11; Glucose Random 143 mg/dL (60-115); Potassium 3.4 mmol/L (3.3-5.1); Sodium 144 mmol/L (135-145); Total Protein 6.8 g/dL (6.5-8.0)
--- NOTE | 2022-03-13 09:59 | P.CDIC_ITS ---
CDI Concurrent Query Documentation Clarification: PHYSICIAN'S DOCUMENTATION REQUEST Date of Query: 03/13/22 0959 Patient Name: Gurjit Seymour Admit Date: 03/11/22 Dear Doctor, A review of the medical record indicates additional documentation may be needed. Please review below and update the documentation accordingly. Clinical Indicators: Risk Factors/Clinical Indicators/Treatments PN: Atrial fibrillation, rate controlled Cardedilol Anticoagulation: Apixaban If possible, please provide further specificity regarding atrial fibrillation, such as: * Paroxysmal atrial fibrillation: terminates spontaneously or with intervention within 7 days of onset. * Persistent atrial fibrillation: episodes of continuous AF that last more than 7 days and do not self-terminate. * Long lasting persistent atrial fibrillation: episodes of continuous AF that last more than 12 months, * Chronic or Permanent atrial fibrillation: when a decision has been made to accept the presence of AF and there is no further attempt to restore or maintain sinus rhythm. * Other (please specify) * Unable to determine Use of terms such as suspected, likely, concern for, or probable (associated with a specific diagnosis that is being evaluated, monitored, or treated as if it exists) are acceptable and can be coded in the inpatient setting, when documented at the time of discharge. Thank you, Lian Monge [facility], CDIS Extension: [phone] Please use your independent medical judgment in providing your response. THIS QUERY IS PART OF THE PERMANENT MEDICAL RECORD Provider Response: Other (chronic af) Other Diagnosis: chronic AF
[2022-03-13] MEDS: NIFEdipine ER 60 MG TAB.ER.24 PO ×2 (10:16→20:02)
[2022-03-13] MEDS: Ticagrelor 90 MG TABLET PO ×2 (10:16→20:02)
[2022-03-13] MEDS: Apixaban 5 MG TABLET PO ×2 (10:16→20:02)
[2022-03-13] MEDS: hydrALAZINE HCl 50 MG TABLET 100 MG PO ×2 (10:16→20:02)
[2022-03-13] MEDS: Docusate Sodium 100 MG CAPSULE PO ×2 (10:16→20:02)
[2022-03-13 11:32] LABS: Glucose, Whole Blood 146 mg/dL (60-115)
--- NOTE | 2022-03-13 12:04 | P.PNIM_ITS ---
Subjective Subjective Date of Service: 03/13/22 Interval History: pt talking today- answering simple questions- denies pain. BMs yesterday and today Review of Systems Review of Systems: Yes all other systems are reviewed and are negative Physical Exam Vital Signs: Vital Signs: Last Vital Signs Temp 98.7 F 03/13/22 07:53 Pulse 68 03/13/22 07:53 Resp 17 03/13/22 07:53 BP 141/76 H 03/13/22 07:53 Pulse Ox 98 03/13/22 07:53 O2 Del Method 03/13/22 07:53 BMI result Body Mass Index 18.9 Gen: in no acute distress HEENT: sclera anicteric, moist mucus membranes Neck: supple Lungs: clear to auscultation bilaterally Heart: regular rate and rhythm, no murmurs Abd: soft, non-tender, non-distended Ext: no edema Skin: warm/well-perfused Neuro: alert, unable to assess orientation Psych: restricted affect, impaired insight Objective Data Active Medications Acetaminophen (Acetaminophen 325 Mg Tablet) 650 mg PO Q6H PRN PRN Reason: Pain, Mild (Pain Scale 1-3) Last Admin: 03/11/22 22:21 Dose: 650 mg Documented By: CAMMY Apixaban (Apixaban 5 Mg Tablet) 5 mg PO BID [facility] Last Admin: 03/13/22 10:16 Dose: 5 mg Documented By: DEWAYNE Carvedilol (Carvedilol 12.5 Mg Tablet) 12.5 mg PO BID [facility]; Protocol Last Admin: 03/12/22 21:12 Dose: 12.5 mg Documented By: JESUS Clonidine (Clonidine 0.3 Mg Patch.Tdwk) 0.3 mg TRANSDERMA We@0900 [facility]; Protocol Docusate Sodium (Docusate Sodium 100 Mg Capsule) 100 mg PO BID [facility] Last Admin: 03/13/22 10:16 Dose: 100 mg Documented By: DEWAYNE Hydralazine HCl (Hydralazine Hcl 50 Mg Tablet) 100 mg PO TID [facility]; Protocol Last Admin: 03/13/22 10:16 Dose: 100 mg Documented By: DEWAYNE Insulin Human Lispro (Insulin Lispro 100 Unit/Ml 3 Ml Vial) 0 unit SUBCUT QIDACHS [facility]; Protocol Last Admin: 03/13/22 11:23 Dose: Not Given Documented By: DEWAYNE Non-Admin Reason: No Insulin Coverage Magnesium Hydroxide (Milk Of Magnesia 30 Ml Oral.Susp) 30 ml PO DAILY PRN PRN Reason: Constipation Melatonin (Melatonin 3 Mg Tablet) 3 mg PO BEDTIME PRN PRN Reason: Insomnia Last Admin: 03/11/22 22:22 Dose: 3 mg Documented By: CAMMY Nifedipine (Nifedipine Er 60 Mg Tab.Er.24) 60 mg PO BID [facility] Last Admin: 03/13/22 10:16 Dose: 60 mg Documented By: DEWAYNE Ondansetron HCl (Ondansetron Hcl 4 Mg/2 Ml Vial) 4 mg IVPUSH Q8H PRN PRN Reason: Nausea and Vomiting Polyethylene Glycol (Polyethylene Glycol 3350 17 Gm Powd.Pack) 17 gm PO DAILY [facility] Last Admin: 03/13/22 10:17 Dose: Not Given Documented By: DEWAYNE Non-Admin Reason: Patient Refused Sodium Biphosphate/Sodium Phosphate (Sodium Phosphate,[place]-Dibasic 133 Ml Enema) 133 ml [place] DAILY PRN PRN Reason: Constipation Sodium Chloride (0.9 % Sodium Chloride Flush 3 Ml Syringe) 3 ml IVFLUSH QSHIFT [facility] Last Admin: 03/13/22 07:51 Dose: 3 ml Documented By: JESUS Ticagrelor (Ticagrelor 90 Mg Tablet) 90 mg PO BID [facility] Last Admin: 03/13/22 10:16 Dose: 90 mg Documented By: DEWAYNE Labs CBC & Chem 7: 03/11/22 12:50 03/13/22 06:29 Labs: Laboratory Results - last 24 hr 03/12/22 03/12/22 03/13/22 15:19 19:18 06:29 Anion Gap 17 Estim Creat Clear Calc 11.7 Estimated GFR 11 POC Glucose 176 H 231 H Random Glucose 143 H Calcium 9.8 Total Bilirubin 0.5 AST 20 ALT 22 Alkaline Phosphatase 210 H Total Protein 6.8 Albumin 3.8 03/13/22 03/13/22 07:25 11:21 Anion Gap Estim Creat Clear Calc Estimated GFR POC Glucose 152 H 146 H Random Glucose Calcium Total Bilirubin AST ALT Alkaline Phosphatase Total Protein Albumin Assessment and Plan (1) Stercoral colitis: Status: Acute Plan d#3 67yo M with ESRD on HD, AF on apixaban, prior CVA, hx of opioid use disorder, HTN, CAD who is a long-term resident at [facility] sent in from HD where he had severe abd pain. Found to have severe constipation with stercoral co litis/impaction, pancreatic mass, pulmonary nodule # severe constipation # stercoral colitis - failed disimpaction by ED. Seen by Gen Surgery- pt refused rectal exam + disimpaction. pt is having BMs with bowel regimen # pancreatic mass - MRI abd pending # RUL pulmonary cyst - repeat CT in 6 mo as outpt # AF, chronic - rate control: carvedilol - anticoagulation: apixaban # hx CVA # CAD - continue ticagrelor # HTN - carvedilol + nifedipine + hydralazine + clonidine # DM2 - basal-bolus insulin # ESRD on HD - HD today, Nephro consulted # VTE ppx: apixaban # dispo: eventual return to LTC at [facility] In my clinical judgment, the patient requires continued inpatient hospitalization for the following reasons:workup of pancreatic mass Quality Stroke Does the patient have a stroke diagnosis?: No VTE Prior VTE?: No VTE Risk Level:: Medical - moderate - high VTE Device Contraindication: Treatment Not Indicated VTE Drug Contraindication: N/A - Med Ordered
--- NOTE | 2022-03-13 12:15 | W.PM.DNNEP ---
Subjective Subjective Interval history: seen during HD Physical Exam Vital Signs: Vital Signs: Last Vital Signs Temp 98.7 F 03/13/22 07:53 Pulse 68 03/13/22 07:53 Resp 17 03/13/22 07:53 BP 141/76 H 03/13/22 07:53 Pulse Ox 98 03/13/22 07:53 O2 Del Method 03/13/22 07:53 BMI result Body Mass Index 18.9 Assessment & Plan Assessment and plan (1) End stage renal disease on dialysis: Status: Acute Plan 1. 67-year-old male with end-stage renal disease on hemodialysis, admitted with severe constipation/stercoral colitis. 2. Pancreatic mass. 3. Anemia of chronic disease. 4. History of cerebrovascular accident. 5. Atrial fibrillation. 6. Hypertension. ?HD Sunday, , and Sunday.? Time Spent With Patient Time: Total time spent is greater than 50% in coordination of care (as documented) at patient's floor/unit and/or counseling patient: Procedures Date of Service Date of Service: 03/13/22
--- NOTE | 2022-03-13 12:20 | CONS_ITS ---
DATE OF SERVICE: 03/12/2022 REASON FOR CONSULTATION: Consult requested by the medical team to evaluate and help in management of patient with end-stage renal disease present with constipation. HISTORY OF PRESENT ILLNESS: The patient is a 67-year-old male who is a poor historian with ESRD on hemodialysis, who presented to the hospital with complaints of weakness, inability to ambulate. He had hemodialysis yesterday and was not feeling himself. In the ER, patient had normal liver function. CT liver revealed stool ball in the rectum. He also had an enlarging prostate mass and CBD dilatation. In the ED, patient was disimpacted, which was performed, which was unsuccessful. He apparently refused rectal exam after that. He was admitted to the hospital for further evaluation and management. PAST MEDICAL HISTORY: History of CVA, AFib, anemia, BPH, chronic back pain, ESRD on hemodialysis, hypertension, opiate dependence, pneumothorax, pulmonary hypertension, ST-elevation MA. PAST SURGICAL HISTORY: History of splenectomy and cholecystectomy. PERSONAL AND SOCIAL HISTORY: Patient is a former alcohol drinker. Former tobacco user. ALLERGIES: PATIENT HAS NO KNOWN DRUG ALLERGIES. MEDICATIONS: Outpatient and inpatient medications were reviewed in detail. REVIEW OF SYSTEMS: The patient denies any chest pain, is not a good historian. PHYSICAL EXAMINATION: GENERAL: Patient is resting in the bed, sleepy but arousable. VITAL SIGNS: Blood pressure is 166/109, pulse is 84, afebrile. HEENT: Pupils equal bilaterally to light. NECK: No jugular venous distention is noted. Neck is supple. No thyromegaly is noted. CARDIOVASCULAR SYSTEM: S1, S2 without rub or murmur. RESPIRATORY SYSTEM: Mild decreased in the bases . No crepitation or rhonchi is noted. ABDOMEN: Soft, nontender. No guarding or rigidity. Bowel sounds normal. EXTREMITIES: No edema. LABORATORY DATA: Done today sodium 134, potassium 4.2, chloride 91, CO2 of 31, BUN 18, creatinine 3.25, glucose 135. Hemoglobin 10.9, hematocrit 34.5, WBC 9.1, platelets 292. IMPRESSION: 1. 67-year-old male with end-stage renal disease on hemodialysis, admitted with severe constipation/stercoral colitis. 2. Pancreatic mass. 3. Anemia of chronic disease. 4. History of cerebrovascular accident. 5. Atrial fibrillation. 6. Hypertension. RECOMMENDATIONS: Based on the information available to me, patient did get dialyzed on Sunday, , and Sunday. I will review his records from the office and arrange dialysis based on schedule. The patient's medical team is working on resolving constipation issue. I recommend avoiding magnesium containing laxatives and phosphate containing laxatives. He can get GoLYTELY if needed. We should continue this present antihypertensive regimen. Based on his hemoglobin level, there is no immediate need for erythropoietin injections at this juncture. We will continue to follow the patient closely. Thank you for allowing me to participate in medical management of the patient. MD GEORGIA Gao/LINDSAY / [phone]
--- NOTE | 2022-03-13 12:58 | MHC.CM.PN ---
PLAN IS FOR MRI TODAY OR WEDNESDAY 03/14 AND RETURN TO [facility].
[2022-03-13 13:46] VITALS: BMI 18.9
[2022-03-13 17:55] VITALS: BP 135/97; PULSE 86; RESP 20; TEMP 36.3; O2SAT 95
[2022-03-13 18:34] LABS: Glucose, Whole Blood 138 mg/dL (60-115)
[2022-03-13] MEDS: carvediloL 12.5 MG TABLET PO (20:02)
[2022-03-13] MEDS: Acetaminophen 325 MG TABLET 650 MG PO (23:37)
[2022-03-14] MEDS: OLANZapine 5 MG TABLET PO (01:37)
[2022-03-14] MEDS: 0.9 % Sodium Chloride Flush 3 ML SYRINGE IVFLUSH ×4 (01:39→22:22)
[2022-03-14 04:00] VITALS: BP 138/69; PULSE 62; RESP 17; TEMP 37.2; O2SAT 97
[2022-03-14 07:37] LABS: Glucose, Whole Blood 118 mg/dL (60-115)
[2022-03-14 07:57] VITALS: BP 164/95; PULSE 77; RESP 17; TEMP 37.2; O2SAT 97
--- NOTE | 2022-03-14 08:08 | P.CDIC_ITS ---
CDI Concurrent Query Documentation Clarification: PHYSICIAN'S DOCUMENTATION REQUEST Date of Query: 03/14/22808 Patient Name: Gurjit Seymour Admit Date: 03/11/22 Dear Doctor, A review of the medical record indicates additional documentation may be needed. Please review below and update the documentation accordingly. Clinical Indicators: Risk Factors/Clinical Indicators/Treatments Clinical nutrition notes 03/13 - Underweight with BMI 18.9 Mild depletion body fat, orbital/clavicle. If possible, please provide an associated diagnosis related to the abnormal BMI, such as: For a BMI <= 19: * Underweight * Weight loss * Anorexia * Other * Unable to determine Use of terms such as suspected, likely, concern for, or probable (associated with a specific diagnosis that is being evaluated, monitored, or treated as if it exists) are acceptable and can be coded in the inpatient setting, when documented at the time of discharge. Thank you, Lian Monge [facility], CDIS Extension: [phone] Please use your independent medical judgment in providing your response. THIS QUERY IS PART OF THE PERMANENT MEDICAL RECORD Provider Response: Other Other Diagnosis: unedrweight
[2022-03-14] MEDS: polyethylene glycoL 3350 17 GM POWD.PACK PO (08:39)
[2022-03-14] MEDS: Docusate Sodium 100 MG CAPSULE PO ×2 (08:40→21:05)
[2022-03-14] MEDS: NIFEdipine ER 60 MG TAB.ER.24 PO ×2 (08:40→21:06)
[2022-03-14] MEDS: Apixaban 5 MG TABLET PO ×2 (08:40→21:06)
[2022-03-14] MEDS: carvediloL 12.5 MG TABLET PO ×2 (08:40→21:06)
[2022-03-14] MEDS: Ticagrelor 90 MG TABLET PO ×2 (08:40→21:05)
[2022-03-14] MEDS: hydrALAZINE HCl 50 MG TABLET 100 MG PO ×3 (08:44→21:06)
--- NOTE | 2022-03-14 11:00 | PM.PNNEP ---
Subjective Subjective Date of Service: 03/15/22 Interval history: seen during HD Physical Exam Vital Signs: Vital Signs: Last Vital Signs Temp 98.9 F 03/14/22 07:57 Pulse 77 03/14/22 07:57 Resp 17 03/14/22 07:57 BP 164/95 H 03/14/22 07:57 Pulse Ox 97 03/14/22 07:57 O2 Del Method 03/14/22 07:57 BMI result Body Mass Index 18.9 Resp: Effort & Inspection: normal respiratory effort and no cough GI: Palpation (GI): Soft to palpation Skin: General skin exam: no rashes or lesions noted Objective Data Labs CBC & Chem 7: 03/11/22 12:50 03/13/22 06:29 Labs: Laboratory Results - last 24 hr 03/13/22 03/13/22 03/14/22 11:21 18:02 07:22 POC Glucose 146 H 138 H 118 H Procedures Date of Service Date of Service: 03/14/22 Assessment & Plan Assessment and plan (1) End stage renal disease on dialysis: Status: Acute Plan 1. 67-year-old male with end-stage renal disease on hemodialysis, admitted with severe constipation/stercoral colitis. 2. Pancreatic mass. 3. Anemia of chronic disease. 4. History of cerebrovascular accident. 5. Atrial fibrillation. 6. Hypertension. ?NO s/s of uremia HD Sunday, , and Sunday.? Time Spent With Patient Time: Total time spent is greater than 50% in coordination of care (as documented) at patient's floor/unit and/or counseling patient: Progress Note: Quality Stroke Does the patient have a stroke diagnosis?: No
[2022-03-14 11:33] LABS: Glucose, Whole Blood 173 mg/dL (60-115)
[2022-03-14] MEDS: Insulin Lispro 100 UNIT/ML 3 ML VIAL SUBCUT ×3 (11:45→21:05)
[2022-03-14 14:02] VITALS: BP 123/72; PULSE 78; RESP 10; TEMP 36.4; O2SAT 96
[2022-03-14 15:15] VITALS: BP 118/68; PULSE 68; RESP 20; TEMP 35.8; O2SAT 100
--- NOTE | 2022-03-14 15:48 | HO.PM.IMPN ---
Subjective Subjective Date of Service: 03/14/22 Interval History: not talking today Review of Systems Review of Systems: Yes Unobtainable due to mental status Physical Exam Vital Signs: Vital Signs: Last Vital Signs Temp 96.5 F L 03/14/22 15:15 Pulse 68 03/14/22 15:15 Resp 20 03/14/22 15:15 BP 118/68 03/14/22 15:15 Pulse Ox 100 03/14/22 15:15 O2 Del Method 03/14/22 15:15 BMI result Body Mass Index 18.9 Gen: in no acute distress but not verbal tdoay HEENT: sclera anicteric, moist mucus membranes Neck: supple Lungs: clear to auscultation bilaterally Heart: regular rate and rhythm, no murmurs Abd: soft, non-tender, non-distended Ext: no edema Skin: warm/well-perfused Neuro: alert, unable to assess orientation Psych: restricted affect, impaired insight Objective Data Active Medications Acetaminophen (Acetaminophen 325 Mg Tablet) 650 mg PO Q6H PRN PRN Reason: Pain, Mild (Pain Scale 1-3) Last Admin: 03/13/22 23:37 Dose: 650 mg Documented By: MARNIE Apixaban (Apixaban 5 Mg Tablet) 5 mg PO BID [facility] Last Admin: 03/14/22 08:40 Dose: 5 mg Documented By: JESUS Carvedilol (Carvedilol 12.5 Mg Tablet) 12.5 mg PO BID [facility]; Protocol Last Admin: 03/14/22 08:40 Dose: 12.5 mg Documented By: JESUS Clonidine (Clonidine 0.3 Mg Patch.Tdwk) 0.3 mg TRANSDERMA We@0900 [facility]; Protocol Docusate Sodium (Docusate Sodium 100 Mg Capsule) 100 mg PO BID [facility] Last Admin: 03/14/22 08:40 Dose: 100 mg Documented By: JESUS Hydralazine HCl (Hydralazine Hcl 50 Mg Tablet) 100 mg PO TID [facility]; Protocol Last Admin: 03/14/22 15:19 Dose: 100 mg Documented By: MAI Insulin Human Lispro (Insulin Lispro 100 Unit/Ml 3 Ml Vial) 0 unit SUBCUT QIDACHS [facility]; Protocol Last Admin: 03/14/22 11:45 Dose: 2 unit Documented By: JESUS Magnesium Hydroxide (Milk Of Magnesia 30 Ml Oral.Susp) 30 ml PO DAILY PRN PRN Reason: Constipation Melatonin (Melatonin 3 Mg Tablet) 3 mg PO BEDTIME PRN PRN Reason: Insomnia Last Admin: 03/11/22 22:22 Dose: 3 mg Documented By: CAMMY Nifedipine (Nifedipine Er 60 Mg Tab.Er.24) 60 mg PO BID [facility] Last Admin: 03/14/22 08:40 Dose: 60 mg Documented By: JESUS Ondansetron HCl (Ondansetron Hcl 4 Mg/2 Ml Vial) 4 mg IVPUSH Q8H PRN PRN Reason: Nausea and Vomiting Polyethylene Glycol (Polyethylene Glycol 3350 17 Gm Powd.Pack) 17 gm PO DAILY [facility] Last Admin: 03/14/22 08:39 Dose: 17 gm Documented By: JESUS Sodium Biphosphate/Sodium Phosphate (Sodium Phosphate,[place]-Dibasic 133 Ml Enema) 133 ml [place] DAILY PRN PRN Reason: Constipation Sodium Chloride (0.9 % Sodium Chloride Flush 3 Ml Syringe) 3 ml IVFLUSH QSHIFT [facility] Last Admin: 03/14/22 15:18 Dose: 3 ml Documented By: MAI Ticagrelor (Ticagrelor 90 Mg Tablet) 90 mg PO BID [facility] Last Admin: 03/14/22 08:40 Dose: 90 mg Documented By: JESUS Labs CBC & Chem 7: 03/11/22 12:50 03/13/22 06:29 Labs: Laboratory Results - last 24 hr 03/13/22 03/14/22 03/14/22 18:02 07:22 11:20 POC Glucose 138 H 118 H 173 H Assessment and Plan (1) Stercoral colitis: Status: Acute Plan d#4 67yo M with ESRD on HD, AF on apixaban, prior CVA, hx of opioid use disorder, HTN, CAD who is a long-term resident at [facility] sent in from HD where he had severe abd pain. Found to have severe constipation with stercoral colitis/impaction, pancreatic mass, pulmonary nodule # severe constipation # stercoral colitis - failed disimpaction by ED. Seen by Gen Surgery- pt refused rectal exam + disimpaction. pt is having BMs with bowel regimen # pancreatic mass - MRI abd pending # RUL pulmonary cyst - repeat CT in 6 mo as outpt # AF, chronic - rate control: carvedilol - anticoagulation: apixaban # hx CVA # CAD - continue ticagrelor # HTN - carvedilol + nifedipine + hydralazine + clonidine # DM2 - basal-bolus insulin # ESRD on HD - HD today, Nephro consulted # VTE ppx: apixaban # dispo: eventual return to LTC at [facility] In my clinical judgment, the patient requires continued inpatient hospitalization for the following reasons:workup of pancreatic mass Quality Stroke Does the patient have a stroke diagnosis?: No VTE Prior VTE?: No VTE Risk Level:: Medical - moderate - high VTE Device Contraindication: Treatment Not Indicated VTE Drug Contraindication: N/A - Med Ordered
[2022-03-14 16:31] LABS: Glucose, Whole Blood 189 mg/dL (60-115)
[2022-03-14 19:05] VITALS: BP 138/73; PULSE 69; RESP 20; TEMP 36; O2SAT 100
[2022-03-14 19:46] LABS: Glucose, Whole Blood 209 mg/dL (60-115)
[2022-03-15 03:02] VITALS: BP 120/74; PULSE 69; RESP 16; TEMP 36.6; O2SAT 99
[2022-03-15 07:49] VITALS: BP 153/84; PULSE 58; RESP 17; TEMP 36.3; O2SAT 96
[2022-03-15 07:54] VITALS: BP 154/93; PULSE 79; RESP 17; TEMP 36.4; O2SAT 100
[2022-03-15 08:00] VITALS: BP 154/93; PULSE 79; RESP 17; TEMP 36.4; O2SAT 100
[2022-03-15 08:02] LABS: Glucose, Whole Blood 120 mg/dL (60-115)
[2022-03-15] MEDS: hydrALAZINE HCl 50 MG TABLET 100 MG PO (09:41)
[2022-03-15] MEDS: 0.9 % Sodium Chloride Flush 3 ML SYRINGE IVFLUSH (09:41)
[2022-03-15] MEDS: Ticagrelor 90 MG TABLET PO (09:41)
[2022-03-15] MEDS: Docusate Sodium 100 MG CAPSULE PO (09:41)
[2022-03-15] MEDS: NIFEdipine ER 60 MG TAB.ER.24 PO (09:41)
[2022-03-15] MEDS: polyethylene glycoL 3350 17 GM POWD.PACK PO (09:42)
[2022-03-15] MEDS: carvediloL 12.5 MG TABLET PO (09:42)
[2022-03-15] MEDS: Apixaban 5 MG TABLET PO (09:42)
--- NOTE | 2022-03-15 10:49 | PM.PNNEP ---
Subjective Subjective Date of Service: 03/16/22 Interval history: not talking today Physical Exam Vital Signs: Vital Signs: Last Vital Signs Temp 97.5 F 03/15/22 08:00 Pulse 79 03/15/22 08:00 Resp 17 03/15/22 08:00 BP 154/93 H 03/15/22 08:00 Pulse Ox 100 03/15/22 08:00 O2 Del Method 03/15/22 08:00 O2 Flow Rate 2.0 03/15/22 07:49 BMI result Body Mass Index 18.9 Resp: Effort & Inspection: normal respiratory effort and no cough GI: Palpation (GI): Soft to palpation Skin: General skin exam: no rashes or lesions noted Objective Data Labs CBC & Chem 7: 03/11/22 12:50 03/13/22 06:29 Labs: Laboratory Results - last 24 hr 03/14/22 03/14/22 03/14/22 11:20 15:22 19:08 POC Glucose 173 H 189 H 209 H 03/15/22 07:52 POC Glucose 120 H Procedures Date of Service Date of Service: 03/15/22 Assessment & Plan Assessment and plan (1) End stage renal disease on dialysis: Status: Acute Plan 1. 67-year-old male with end-stage renal disease on hemodialysis, admitted with severe constipation/stercoral colitis. 2. Pancreatic mass. 3. Anemia of chronic disease. 4. History of cerebrovascular accident. 5. Atrial fibrillation. 6. Hypertension. ?NO s/s of uremia Due for HD today Time Spent With Patient Time: Total time spent is greater than 50% in coordination of care (as documented) at patient's floor/unit and/or counseling patient: Progress Note: Quality Stroke Does the patient have a stroke diagnosis?: No
[2022-03-15 11:38] LABS: Glucose, Whole Blood 372 mg/dL (60-115)
[2022-03-15 11:48] LABS: Carbohydrate Antigen 19-9 1427 U/mL (<34)
--- NOTE | 2022-03-15 11:54 | PC.NURSE ---
Fei Sue notified of 11:30 AM BS of 372, awaiting response.
[2022-03-15] MEDS: Insulin Lispro 100 UNIT/ML 3 ML VIAL SUBCUT (12:11)
--- NOTE | 2022-03-15 12:53 | MHC.CM.PN ---
PATIENT IS DC BACK TO [facility] TO TRANSPORT FOR 3 PM. TIME AGREED UPON WITH [facility] RN, MALGORZATA. SISTERS, AMY AND DES ([phone]) AWARE OF PLAN. RN AWARE OF PLAN. IMM 03/14 IN CHART
--- NOTE | 2022-03-15 12:56 | PM.DS ---
DS: Providers Provider Date of Service: 03/15/22 Date of admission: 03/11/22 17:23 Date of discharge: 03/15/22 Primary care physician: Kevin Hernandez MD Consults: 03/11/22 17:23 Consult to Nephrology Routine Consulting Provider: Evans Barrow Reason for consultation: ESRD from [facility] needs dialysis Has provider been notified: No DS: Diagnosis Discharge Diagnosis (1) Pancreatic mass: Status: Acute (2) Stercoral colitis: Status: Acute (3) End stage renal disease on dialysis: Status: Acute (4) Pulmonary nodule: Status: Acute DS: Summary Hospital Course Hospital Course: from admission H+P by hospitalist George Pitts MD, 03/11/22: 67-year-old male with ESRD on dialysis, Afb on Eliquis, h/o CVA, h/o opiiod use desordern,? HTN,? CAD, resisdes [facility] sent to be evaluated for abdominal pain that was severe. He reportedly had pain after dialysis today and has not been himself, weak, unable to ambulate properly.? ED work up revealed WBC of 9.1 BUN of 18, and normal liver function tests.? CT reveals a large 8 cm stool ball in the rectum.? There is also an enlarging pancreatic mass? with CBD dilatation.? The pancreatic duct is dilated to 7 mm and the pancreatic neck measures 4.3 cm , suspicious for pancreatic mass.? A lung nodules is? also partially visualized. Attempt by ED staff for desimpaction was unsuccesful. He was evaluated by Dr. Medley with the following remarks Patient is refusing rectal examination and disimpaction.? Agree with gentle cathartic? with stool softener, MiraLax, ? Mineral oil. ? If no effect with stool softeners and MiraLax, consider fleets enema.? Patient will need workup for his pancreatic mass as well with either MRI or CT with pancreatic protocol. This 67yo M with ESRD on HD, AF on apixaban, prior CVA, hx of opioid use disorder, HTN, and CAD who is a long-term resident at [facility] was sent in after dialysis with severe abdominal pain.? Found to have severe constipation with stercoral colitis/impaction, pancreatic mass, and pulmonary nodule. For constipation and stercoral colitis, he refused rectal exam by the surgeon. Fortunately, after MiraLax and enema, he started to have bowel movements. He underwent HD as per his regular schedule. MRI demonstrated a suspicious partially solid/cystic mass in the head/neck of the pancreas with mild dilation of the main pancreatic duct. CA 19.9 very elevated at 1427. I contact his sister and informed her of the result and advised that she accompany him to an outpatient hematology-oncology consultation, which should be arranged at [facility]. She and their other sister will discuss how aggressive to be with the workup and treatment of this mass. He was discharged back to [facility]. Time Spent with Patient Time attestation: Total time spent providing and/or coordinating discharge services: Discharge coordination time: Greater than 30 minutes Quality: Safe Use of Opioids Does Pt have an Active Cancer Diagnosis on the Problem List?: No Quality: Stroke Does the patient have a stroke diagnosis?: No Physical Exam Vital Signs: Vital Signs: Last Vital Signs Temp 97.5 F 03/15/22 08:00 Pulse 79 03/15/22 08:00 Resp 17 03/15/22 08:00 BP 154/93 H 03/15/22 08:00 Pulse Ox 100 03/15/22 08:00 O2 Del Method 03/15/22 08:00 O2 Flow Rate 2.0 03/15/22 07:49 BMI result Body Mass Index 18.9 Gen: in no acute distress HEENT: sclera anicteric, moist mucus membranes Neck: supple Lungs: clear to auscultation bilaterally Heart: regular rate and rhythm, no murmurs Abd: soft, non-tender, non-distended Ext: no edema Skin: warm/well-perfused Neuro: alert, unable to assess orientation Psych: restricted affect, impaired insight DS: Data Data Completed and Pending Completed studies during hospitalization [Text1]: Laboratory Results WBC 9.1 X10*3/uL (4.8-10.8) 03/11/22 12:50 RBC 4.13 X10*6/uL (4.60-5.80) L 03/11/22 12:50 Hgb 10.9 g/dl (14.0-18.0) L 03/11/22 12:50 Hct 34.5 % (42.0-52.0) L 03/11/22 12:50 MCV 83.5 fL (80.0-98.0) 03/11/22 12:50 MCH 26.4 pg (27.0-33.0) L 03/11/22 12:50 MCHC 31.6 g/dl (31.0-36.0) 03/11/22 12:50 RDW 15.8 % (11.0-16.0) 03/11/22 12:50 Plt Count 292 X10*3/uL (160-400) 03/11/22 12:50 MPV 11.2 fL (9.4-12.4) 03/11/22 12:50 Immature Gran % (Auto) 0.3 % (0.0-0.4) 03/11/22 12:50 Neut % (Auto) 82.4 % (45-73) H 03/11/22 12:50 Lymph % (Auto) 8.8 % (20-40) L 03/11/22 12:50 [place] % (Auto) 7.6 % (2-11) 03/11/22 12:50 Eos % (Auto) 0.6 % (0-4) 03/11/22 12:50 Baso % (Auto) 0.3 % (0-2) 03/11/22 12:50 Lymph # (Auto) 0.8 X10*3/uL (1.2-4.9) L 03/11/22 12:50 [place] # (Auto) 0.7 X10*3/uL (0.1-1.2) 03/11/22 12:50 Eos # (Auto) 0.1 X10*3/uL (0.0-0.4) 03/11/22 12:50 Baso # (Auto) 0.0 X10*3/uL (0.0-0.2) 03/11/22 12:50 Abs Immat Gran (auto) 0.03 X10*3/uL (0.00-0.03) 03/11/22 12:50 Absolute Neuts (auto) 7.5 x10*3/uL (2.0-8.3) 03/11/22 12:50 Absolute Nucleated RBC 0.000 X10*3/uL (0.0-0.012) 03/11/22 12:50 Nucleated RBC % (auto) 0.0 /100WBC (0.0-0.2) 03/11/22 12:50 Sodium 144 mmol/L (135-145) 03/13/22 06:29 Potassium 3.4 mmol/L (3.3-5.1) 03/13/22 06:29 Chloride 99 mmol/L (96-108) 03/13/22 06:29 Carbon Dioxide 31 mmol/L (22-29) H 03/13/22 06:29 Anion Gap 17 (12-20) 03/13/22 06:29 BUN 40 mg/dL (9-16) H 03/13/22 06:29 Creatinine 5.33 mg/dL (0.5-1.4) H* 03/13/22 06:29 Estim Creat Clear Calc 11.7 03/13/22 06:29 Estimated GFR 11 03/13/22 06:29 POC Glucose 372 mg/dL (60-115) H* 03/15/22 11:26 Random Glucose 143 mg/dL (60-115) H 03/13/22 06:29 Calcium 9.8 mg/dL (8.4-10.2) 03/13/22 06:29 Magnesium 2.1 mg/dL (1.6-2.6) 03/11/22 12:50 Total Bilirubin 0.5 mg/dL (0.0-1.0) 03/13/22 06:29 Direct Bilirubin 0.3 mg/dL (0.0-0.5) 03/11/22 12:50 AST 20 U/L (5-37) 03/13/22 06:29 ALT 22 U/L (0-40) 03/13/22 06:29 Alkaline Phosphatase 210 U/L (39-117) H 03/13/22 06:29 Total Protein 6.8 g/dL (6.5-8.0) 03/13/22 06:29 Albumin 3.8 g/dL (3.5-5.0) 03/13/22 06:29 CA 19-9 Antigen 1427 U/mL (<34) H 03/13/22 06:29 COVID-19 (DEISI) Negative (Negative) 03/11/22 12:50 COVID-19 Clin Com See Note 03/11/22 12:50 Impressions Abdomen/Pelvis CT 03/11/22 12:44 IMPRESSION: There is focal masslike thickening in the pancreatic neck measuring approximately 4.3 cm raising the suspicion for a primary pancreatic mass. Pancreatic duct in the neck is dilated to 7 mm and there is moderate intrahepatic and severe extrahepatic biliary duct dilatation. Recommend further evaluation with CT pancreas protocol. Large desiccated stool ball within the rectum measuring 8 cm with wall thickening and minimal infiltration of the mesorectal fat which could be seen in the setting of stercoral colitis if clinical symptoms are appropriate. A 6 mm solid pulmonary nodule in the right lower lobe, incompletely imaged. If patient is determined to have a primary underlying malignancy recommend a CT chest for staging. If patient has no primary malignancy recommend follow-up per Fleischner Society recommendations. According to the UPDATED 2017 Fleischner Society recommendations, the advised followup imaging for a single 6-8 mm solid nodule is: LOW RISK PATIENT: CT at 6-12 months, then consider CT at 18-24 months. HIGH RISK PATIENT: CT at 6-12 months, then at 18-24 months. Trace perihepatic ascites. Similar adenomatous hyperplasia of the left adrenal gland without ari discrete nodule. Head CT 03/11/22 19:26 IMPRESSION: No acute intracranial pathology or change. Chest CT 03/11/22 19:52 IMPRESSION: 1. No evidence of 6 mm right lower lobe pulmonary nodule. The finding on the CT abdomen pelvis corresponds to a pulmonary blood vessel. 2. Unchanged 1.4 x 0.7 cm semisolid nodule in the medial left lung apex. 3. Unchanged 3 x 2.4 cm air cyst in the right upper lobe with irregular mural thickening and nodularity. Suggest 6 month follow-up as previously advised on the chest CT 01/16/2022. 4. No new pulmonary nodules. 5. Cardiomegaly with prominent biatrial enlargement. 6. Incompletely imaged masslike fullness in the pancreatic head and neck with moderate biliary ductal dilation. Suggest further evaluation with pancreatic protocol CT or MRI. 7. Additional ancillary findings, as described. Abdomen MRI 03/14/22 13:30 IMPRESSION: Very limited exam due to motion artifact and vomiting. Heterogeneous partially solid partially cystic mass in the head/neck of the pancreas suspicious for neoplasm. Mild dilatation of the main pancreatic duct measuring up to 5 mm. Stable intra and extrahepatic biliary duct dilatation, common bile duct measuring 2.3 cm dilated down to the head of the pancreas. Solitary liver lesion in the right lobe of the liver, not further characterized. Vascular structures not assessed. Discharge Plan Discharge Anticipated Discharge Date/Time: 03/15/22 17:00 Patient Disposition: er [facility] Discharge Diagnosis: Pancreatic mass Stercoral colitis due to severe constipation ESRD on HD Referrals: Meghann Key MD [Physician] - 1 Week Kevin Hernandez MD [Physician] - 1 Week Kevin Hernandez MD [Referring] - 1 Week Physician,Unknown J [Primary Care Provider] - 1 Week Discharge Medications: New polyethylene glycol 3350 17 gram Powder In Packet 17 g PO DAILY Qty: 14 0RF Fleet Enema 19-7 gram/118 mL Enema 133 ml ID DAILY PRN (Reason: Constipation) Qty: 1 0RF hydralazine 50 mg Tablet 100 mg PO TID Qty: 1 0RF Protocol: Hold for SBP< HOLD for SBP < : 90 clonidine [[id number]] 0.3 mg/24 hr Patch Weekly 0.3 mg transdermal We@0900 Qty: 1 0RF Protocol: Hold for SBP< HOLD for SBP < : 90 Continued atorvastatin 80 mg Tablet 40 mg PO BEDTIME acetaminophen 325 mg Tablet 650 mg PO Q6H PRN (Reason: Pain (Scale Score 1-3)) insulin glargine [Lantus U-100 Insulin] 100 unit/mL solution 8 unit subcut BEDTIME famotidine [Pepcid] 20 mg Tablet 20 mg PO MOWEFR@0600 bisacodyl 10 mg Suppository 10 mg ID DAILY PRN (Reason: Constipation) sertraline 25 mg tablet 75 mg PO DAILY B complex-vitamin C-folic acid 0.8 mg Tablet 1 tab PO MOWEFR@0600 gabapentin 100 mg Capsule 100 mg PO TID Rx Instructions: GIVE AM DOSE BEFORE DIALYSIS ON DIALYSIS DAYS AY 0600 insulin lispro [Humalog U-100 Insulin] 100 unit/mL Solution 1 sliding scale dose SUBCUT TIDAC Protocol: Insulin Correction Scale Less than or equal to 110 ---- Give (units): 0 111 to 150 Give (units): 0 151 to 200 Give (units): 2 201 to 250 Give (units): 4 251 to 300 Give (units): 6 301 to 350 Give (units): 8 Greater than 350 Give (units): 10 Call MD if Blood Glucose > : 350 white petrolatum-mineral oil Cream 1 appl TOPICAL QID PRN (Reason: Dry Skin) ticagrelor 90 mg Tablet 90 mg PO MOWEFR@0900 ticagrelor 90 mg Tablet 90 mg PO SUTUTHSA@0900,2100 Zenpep 5,000-17,000- 24,000 unit capsule,delayed release(DR/EC) 1 cap PO SUTUTHSA@,14,20 Zenpep 5,000-17,000- 24,000 unit capsule,delayed release(DR/EC) 1 cap PO MOWEFR@06,14,20 Glucagon (HCl) Emergency Kit 1 mg Recon Soln 1 mg SUBCUT Q5M PRN (Reason: LETHARGY, BS <110) Rx Instructions: until target blood sugar attained tizanidine 4 mg tablet 1 tab PO MOWEFR@0600,14,20 tizanidine 4 mg tablet 1 tab PO SUTUTHSA@0900,14,20 carvedilol 12.5 mg tablet 12.5 mg PO SUTUTHSA@10,18 nifedipine 60 mg Tablet Extended Release 60 mg PO SUTUTHSA@09,20 oxycodone 5 mg tablet 5 mg PO TID PRN (Reason: Pain, Moderate) Eliquis 2.5 mg tablet 2.5 mg PO SUTUTHSA@09,20 carvedilol 12.5 mg tablet 12.5 mg PO MOWEFR@18 docusate sodium 100 mg Capsule 100 mg PO MOWEFR@09 Combivent Respimat 20-100 mcg/actuation mist 1 puff inhalation QID Rx Instructions: GIVE FIRST DOSE OF THE DAY AT 0600 ON DIALYSIS DAYS, SPACE EVENLY THROUGHOUT THE DAY nifedipine 60 mg tablet extended release 60 mg PO DAILY@18 Eliquis 2.5 mg tablet 2.5 mg PO MOWEFR@1800 melatonin 3 mg Tablet 3 mg PO BEDTIME PRN (Reason: Sleep) famotidine 20 mg tablet 20 mg PO SUTUTHSA@0900 B complex-vitamin C-folic acid 0.8 mg Tablet 1 tab PO SUTUTHSA@09 Discharge Orders: Discharge Order (Routine); Ordered 03/15/22 Ordered By: Alicia Sue Diet: Diabetic diet Activity on Discharge: As tolerated Stand Alone Forms: Patient Portal Discharge page Care Plan Goals: diagnosis and treatment of pancreatic mass prevention of constipation Health Concerns: Pancreatic mass Stercoral colitis due to severe constipation ESRD on HD Plan of Treatment: Follow up with Dr Meghann Key at [facility] [on the 1st floor of the hospital]: [address] [id number] continue bowel regimen; added Miralax and as-needed enema continue dialysis TuThSa Please follow up with your primary care doctor within 1 week. Return to the hospital if you experience recurrent or worsening symptoms. Assessment: See Discharge Summary.
[2022-03-15] MEDS: cloNIDine 0.3 MG PATCH.TDWK TRANSDERMA (13:17)
[2022-03-15 13:56] LABS: COVID-19 Test Negative (Negative); IDNOW Serial# 16C4AD1C
== END 2022-03-15 15:20 | disposition skilled nursing facility (03) | DRG 435 ==
LOC: HO.ED 15:22 → HO.S3 17:30 → HO.EDOVER 17:54 → HO.S3 21:50
PROVIDERS: Physician Assistant; Admitting Provider Internal Medicine; Emergency Provider Emergency Medicine; Visit Provider Family Medicine
DX: C25.8 Malignant neoplasm of overlapping sites of pancreas (principal); N18.6 End stage renal disease; I12.0 Hypertensive chronic kidney disease with stage 5 chronic kidney disease or end stage renal disease; I69.351 Hemiplegia and hemiparesis following cerebral infarction affecting right dominant side; I13.2 Hypertensive heart and chronic kidney disease with heart failure and with stage 5 chronic kidney disease, or end stage renal disease; I48.20 Chronic atrial fibrillation, unspecified; Z68.1 Body mass index [BMI] 19.9 or less, adult; K52.89 Other specified noninfective gastroenteritis and colitis; E11.22 Type 2 diabetes mellitus with diabetic chronic kidney disease; D63.1 Anemia in chronic kidney disease; D63.0 Anemia in neoplastic disease; J98.4 Other disorders of lung; E11.40 Type 2 diabetes mellitus with diabetic neuropathy, unspecified; R63.6 Underweight; Z99.2 Dependence on renal dialysis; K56.41 Fecal impaction; I25.10 Atherosclerotic heart disease of native coronary artery without angina pectoris; I25.2 Old myocardial infarction; Z79.4 Long term (current) use of insulin; Z79.01 Long term (current) use of anticoagulants; Z79.899 Other long term (current) drug therapy
CPT/HCPCS: 36415; 70450; 71250; 74176; 74183; 80048; 80053; 80076; 82947; 83735; 85025; 86301; 87635; 90999; 93005; 99285; A9585

== ENCOUNTER 2022-04-24 10:03 | Emergency (ER) | payer MEDICARE, MEDICAID, SELFPAY ==
--- NOTE | ~2022-04-24 | CT_ITS ---
EXAMINATION: CT ABDOMEN AND PELVIS WITHOUT CONTRAST CLINICAL INFORMATION: Abdominal pain COMPARISON: CT abdomen pelvis 03/11/2022 and MR abdomen 03/14/2022, ultrasound abdomen 01/16/2022 TECHNIQUE: Multidetector volumetric imaging was performed from the superior aspect of the liver through the pubic symphysis. Sagittal and coronal reformatted images were obtained on the technologist's workstation. This CT examination was performed using dose optimization techniques as appropriate, variously including the following: *Automated exposure control *Adjustment of mA and/or kV according to patient size (this includes techniques or standardized protocols for targeted exams where dose is matched to indication/reason for exam; i.e. extremities or head) *Use of iterative reconstruction technique DLP: 326 mGy-cm FINDINGS: LUNG BASES: There is marked cardiac enlargement with an enlarged right atria. Basilar atelectasis is present. Previously seen 6 mm right lower lobe pulmonary nodule is not included on this exam. LIVER, GALLBLADDER, AND BILIARY TREE: The liver is enlarged measuring 19.8 cm in greatest cephalocaudad dimension. Again noted is biliary ductal dilatation intrahepatic along with extrahepatic. The common bile duct is markedly dilated at 2.3 cm. No liver masses are seen on this noncontrast study. The previously seen echogenic mass seen in the right lobe of the liver and imaged on MRI is not appreciated on this exam. Some calcifications are seen around the right lobe of the liver, unchanged A pancreatic mass is again suspected. PANCREAS: Diffuse calcifications are present throughout the pancreas. As described above, pancreatic mass is suspected in the head of the pancreas causing biliary ductal dilatation and some dilatation of the pancreatic duct as seen previously. SPLEEN: Small accessory spleens are present. ADRENAL GLANDS: Diffuse thickening of the left adrenal gland again noted measuring water density. The right adrenal gland is unremarkable. KIDNEYS AND URETERS: The right kidney is atrophic compared with the left and multiple benign simple cysts are present on the right. No further imaging or follow-up is needed. No solid renal masses are seen. No nephrolithiasis. No hydronephrosis. BLADDER: Fairly empty with mild symmetric wall thickening GASTROINTESTINAL TRACT: The small and large bowel are unremarkable. The appendix is unremarkable. ABDOMINAL WALL: No significant hernia is appreciated. LYMPH NODES: No gross retroperitoneal lymphadenopathy. There are some small periceliac, gastrohepatic ligament/aj hepatis lymph nodes. VASCULAR: Calcific plaque present in the aorta and iliofemoral vessels without aneurysm. PELVIC VISCERA: There is moderate BPH. OSSEOUS STRUCTURES: Degenerative changes present at L5-S1 CT/CT abdomen pelvis wo IV con IMPRESSION: 1. Redemonstration of biliary ductal dilatation. A pancreatic mass is again suspected. 2. Other incidental findings as described above including marked cardiomegaly, thickened left adrenal gland, atrophic right kidney, BPH and degenerative changes L5-S1. Fleischner guidelines were followed.
[2022-04-24 10:13] VITALS: BP 202/111; PULSE 72; RESP 18; TEMP 36.8; O2SAT 99; BMI 21.3
--- NOTE | 2022-04-24 10:44 | ECG_ITS ---
Test Reason : abd pain Blood Pressure : / mmHG Vent. Rate : 095 BPM Atrial Rate : 312 BPM P-R Int : 000 ms QRS Dur : 082 ms QT Int : 354 ms P-R-T Axes : 000 -53 069 degrees QTc Int : 444 ms Poor data quality Atrial fibrillation with Premature ventricular complexes Low voltage QRS Nonspecific ST and T wave abnormality Abnormal ECG When compared with ECG of 11-MAR-2022 12:10, Poor data quality in current ECG precludes serial comparison Referred By: Donna Whittaker Electronically Signed By:JAIME ARNDT MD
--- NOTE | 2022-04-24 10:52 | ED_ITS ---
HPI - Abdominal Pain General Chief Complaint: Abdominal Pain Stated Complaint: RLQ PAIN FROM DIALYSIS,FULL TX RECEIVED PER EMS Time Seen by Provider: 04/24/22 10:39 Source: patient and EMS Mode of arrival: EMS Limitations: no limitations History of Present Illness HPI narrative: 67-year-old male coming from dialysis with a past medical history of end-stage renal disease, diabetes, AFib on Eliquis, CVA right-sided weakness, pulmonary hypertension, opiate dependence in remission, neuropathy who presents with gene ralized abdominal pain which began after dialysis with no reports of nausea, vomiting, diarrhea, constipation. Last BM was yesterday per patient. No fevers or chills. No urinary symptoms. Of note patient was admitted 12 3-12 7 for constipation, pancreatic mass concerning for malignancy. Patient was referred to Oncology outpatient. Unclear if this took place Related Data Home Medications Medication Instructions Recorded Confirmed acetaminophen 325 mg tablet 650 mg PO Q6H PRN Pain (Scale 01/16/22 03/12/22 Score 1-3) atorvastatin 80 mg tablet 40 mg PO BEDTIME 01/16/22 03/12/22 bisacodyl 10 mg rectal suppository 10 mg [place] DAILY PRN Constipation 01/16/22 03/12/22 famotidine 20 mg tablet (Pepcid) 20 mg PO MOWEFR@0600 01/16/22 03/12/22 gabapentin 100 mg capsule 100 mg PO TID 01/16/22 03/12/22 glucagon HCl 1 mg solution for 1 mg subcut Q5M PRN LETHARGY, BS 01/16/22 03/12/22 injection (Glucagon (HCl) <110 Emergency Kit) insulin glargine 100 unit/mL 8 unit subcut BEDTIME 01/16/22 03/11/22 subcutaneous solution (Lantus U-100 Insulin) insulin lispro 100 unit/mL 1 sliding scale dose subcut TIDAC 01/16/22 03/12/22 subcutaneous solution (Humalog U-100 Insulin) esoqxp-cukcnqje-ywzzffe 1 cap PO MOWEFR@,,20 01/16/22 03/12/22 5,000-17,000-24,000 unit capsule, delayed rel (Zenpep) szwxqh-ybyhybdb-rctjmka 1 cap PO SUTUTHSA@,,01/16/22 03/12/22 5,000-17,000-24,000 unit capsule, delayed rel (Zenpep) sertraline 25 mg tablet 75 mg PO DAILY 01/16/22 03/12/22 ticagrelor 90 mg tablet 90 mg PO MOWEFR@0900 01/16/22 03/12/22 ticagrelor 90 mg tablet 90 mg PO SUTUTHSA@0900,2100 01/16/22 03/12/22 tizanidine 4 mg tablet 1 tab PO MOWEFR@0600,14,20 01/16/22 03/12/22 tizanidine 4 mg tablet 1 tab PO SUTUTHSA@0900,14,20 01/16/22 03/12/22 vitamin B complex-vitamin C-folic 1 tab PO MOWEFR@0600 01/16/22 03/12/22 acid 0.8 mg tablet white petrolatum-mineral oil 1 appl topical QID PRN Dry Skin 01/16/22 03/12/22 topical cream apixaban 2.5 mg tablet (Eliquis) 2.5 mg PO SUTUTHSA@09,20 03/11/22 03/12/22 carvedilol 12.5 mg tablet 12.5 mg PO SUTUTHSA@10,18 03/11/22 03/12/22 nifedipine 60 mg tablet,extended 60 mg PO SUTUTHSA@09,20 03/11/22 03/12/22 release oxycodone 5 mg tablet 5 mg PO TID PRN Pain, Moderate 03/11/22 03/12/22 apixaban 2.5 mg tablet (Eliquis) 2.5 mg PO MOWEFR@1800 03/12/22 03/12/22 carvedilol 12.5 mg tablet 12.5 mg PO MOWEFR@18 03/12/22 03/12/22 docusate sodium 100 mg capsule 100 mg PO MOWEFR@09 03/12/22 03/12/22 famotidine 20 mg tablet 20 mg PO SUTUTHSA@0900 03/12/22 03/12/22 ipratropium 20 mcg-albuterol 100 1 puff inhalation QID 03/12/22 03/12/22 mcg/actuation mist for inhalation (Combivent Respimat) melatonin 3 mg tablet 3 mg PO BEDTIME PRN Sleep 03/12/22 03/12/22 nifedipine 60 mg tablet,extended 60 mg PO DAILY@18 03/12/22 03/12/22 release vitamin B complex-vitamin C-folic 1 tab PO SUTUTHSA@09 03/12/22 03/12/22 acid 0.8 mg tablet Previous Rx's Medication Instructions Recorded clonidine 0.3 mg/24 hr weekly 0.3 mg transdermal We@0900 #1 ea 03/15/22 transdermal patch (Lrabkzfi-EZF-0) hydralazine 50 mg tablet 100 mg PO TID #1 tab 03/15/22 polyethylene glycol 3350 17 gram 17 g PO DAILY #14 ea 03/15/22 oral powder packet sodium phosphates 19 gram-7 133 ml W[place] DAILY PRN Constipation 03/15/22 gram/118 mL enema (Fleet Enema) #1 mL oxycodone 5 mg tablet 5 mg PO Q4H PRN pain #8 tabs 04/24/22 Allergies Allergy/AdvReac Type Severity Reaction Status Date / Time No Known Allergies Allergy Verified 09/28/21 08:34 Review of Systems Review of Systems Yes all other systems are reviewed and are negative Constitutional: Reports no additional constitutional complaints, Denies body ache(s), Denies chills, Denies fever(s), Denies headache(s) and Denies weakness Eyes: Reports no additional eye complaints and Denies change in vision Reports system reviewed and no additional complaints, except as documented, Denies dizziness, Denies headache(s), Denies nasal congestion, Denies nasal dis charge and Denies neck pain Cardiovascular: Reports no additional cardiovascular complaints, Denies chest pain, Denies leg edema and Denies dyspnea Respiratory: Reports no additional respiratory complaints, Denies cough and Denies dyspnea Gastrointestinal: Reports no additional gastrointestinal complaints, Reports abdominal pain, Denies diarrhea, Denies nausea and Denies vomiting Genitourinary: Denies urinary incontinence Musculoskeletal: Reports no additional musculoskeletal complaints, Denies back pain, Denies arthralgias, Denies joint swelling, Denies neck pain, Denies n umbness and Denies tingling Skin/Breast: Reports system reviewed and no additional complaints, except as docu and Denies rash Reports system reviewed and no additional complaints, except as documented, Denies dizziness, Denies headache(s), Denies numbness, Denies tingling and Denies weakness [facility] Past Medical History Attestation statement: The following information was validated with the patient. Source: old records reviewed and nursing notes reviewed Medical History Acute CVA (cerebrovascular accident) Afib Anemia BPH (benign prostatic hyperplasia) Chronic back pain End stage renal disease on dialysis ESRD (end stage renal disease) HTN (hypertension) Opiate dependence Pneumothorax Pulmonary hypertension STEMI (ST elevation myocardial infarction) Surgical History H/O splenectomy Hx of cholecystectomy Social History Social History Household Members: None Housing: Senior [facility] Do you presently have visiting nurse or other home services: No Alcohol intake: former Patient Tobacco Use Status: Former Tobacco user Advance Directives: No Advance Directives Information Provided: No Physical Exam ED Vital Signs: Vital Signs - 24 hr 04/24/22 10:13 04/24/22 11:18 04/24/22 13:06 Temperature 98.3 F Pulse Rate 72 95 Respiratory Rate 18 18 18 Blood Pressure 202/111 H 151/84 H Pulse Oximetry 99 Oxygen Delivery Method Room Air Room Air BMI result Body Mass Index 21.3 Const General: alert Orientation/consciousness: patient oriented x3 Limitations: no limitations HENMT Head: Yes normal to inspection Ears: hearing grossly normal bilaterally Eyes General: appearance normal, both eyes and all related structures Neck Neck: Yes normal visual inspection Chest Chest palpation & inspection: normal inspection of the chest Resp Effort & Inspection: normal respiratory effort Auscultation: clear to auscultation bilaterally Cardio Rate: regular rate Rhythm: regular rhythm Peripheral pulses: Peripheral pulses 2+ throughout GI Inspection: Yes normal to inspection Palpation (GI): Soft to palpation and Tenderness to palpation present (GI) (diffusely tender) Auscultation: normal bowel sounds General: Yes no CVA tenderness Back/Spine/Pelvis Back: no CVA tenderness Thoracic/Lumbar Spine: thoracic and lumbar spine normal to inspection Skin General skin exam: no rashes or lesions noted Neuro General: patient oriented x3 and moves all extremities Cognition (Neuro): normal cognition Gait exam (Neuro): Normal gait present Extrem General: Yes normal to inspection, Yes no pedal edema and Yes no calf tenderness Course Course Course Narrative: Patient's CT scan shows redemonstrated pancreatic mass/biliary duct dilation which is unchanged from previous. Patient admitted in march for same and had MRI and CA-19 levels which were elevated concerning for pancreatic malignancy. Referred to f/u with hematology/oncology as follow-up on discharge. Unclear if patient went to this appointment as there is no documentation of this available in the system Patient currently resides at [facility]. Patient tells me he did go to an appointment but believes it was with [facility] heme/onc. He did desire treatment but it is unclear why he has not started this. I asked to speak to the patient's sister and he adamantely refused this. He does not want me to call or speak to her. At this point his pain is well controlled. He is tolerating PO. He is on oxycodone 5mg Q6 hrs at the SNF. This can be increased for adequate pain control. Medical Decision Making Medical Decision Making [facility] Narrative: 67-year-old male here with generalized abdominal pain which began after hemodialysis today. Patient with diffuse tenderness on exam. Will obtain labs, EKG, UA. Will obtain COVID screen. Patient will be predicated analgesia, antiemetic. Patient will likely need imaging Differential Diagnosis Differential Diagnoses: The differential diagnosis associated with the presentation includes Pancreatitis, gastroenteritis Lab Data [facility] Lab Attestation statement: I reviewed the patient's lab results. 04/24/22 11:13 04/24/22 12:14 Labs: Lab Results 04/24/22 04/24/22 04/24/22 Range/Units 11:13 11:13 11:13 WBC 5.5 (4.8-10.8) X10*3/uL RBC 4.30 L (4.60-5.80) X10*6/uL Hgb 11.5 L (14.0-18.0) g/dl Hct 35.4 L (42.0-52.0) % MCV 82.3 (80.0-98.0) fL MCH 26.7 L (27.0-33.0) pg MCHC 32.5 (31.0-36.0) g/dl RDW 17.1 H (11.0-16.0) % Plt Count 255 (160-400) X10*3/uL MPV 10.2 (9.4-12.4) fL Immature Gran % (Auto) 0.2 (0.0-0.4) % Neut % (Auto) 59.3 (45-73) % Lymph % (Auto) 22.9 (20-40) % [place] % (Auto) 11.8 H (2-11) % Eos % (Auto) 5.4 H (0-4) % Baso % (Auto) 0.4 (0-2) % Lymph # (Auto) 1.3 (1.2-4.9) X10*3/uL [place] # (Auto) 0.7 (0.1-1.2) X10*3/uL Eos # (Auto) 0.3 (0.0-0.4) X10*3/uL Baso # (Auto) 0.0 (0.0-0.2) X10*3/uL Abs Immat Gran (auto) 0.01 (0.00-0.03) X10*3/uL Absolute Neuts (auto) 3.3 (2.0-8.3) x10*3/uL Absolute Nucleated RBC 0.000 (0.0-0.012) X10*3/uL Nucleated RBC % (auto) 0.0 (0.0-0.2) /100WBC Sodium (135-145) mmol/L Potassium (3.3-5.1) mmol/L Chloride (96-108) mmol/L Carbon Dioxide (22-29) mmol/L Anion Gap (12-20) BUN (9-16) mg/dL Creatinine (0.5-1.4) mg/dL Estim Creat Clear Calc Estimated GFR Random Glucose (60-115) mg/dL Lactic Acid 1.5 (0.5-2.0) mmol/L Calcium (8.4-10.2) mg/dL Magnesium (1.6-2.6) mg/dL Total Bilirubin (0.0-1.0) mg/dL Direct Bilirubin (0.0-0.5) mg/dL AST (5-37) U/L ALT (0-40) U/L Alkaline Phosphatase (39-117) U/L Total Protein (6.5-8.0) g/dL Albumin (3.5-5.0) g/dL Lipase (8-78) U/L COVID-19 (DEISI) Negative (Negative) COVID-19 Clin Com See Note 04/24/22 Range/Units 12:14 WBC (4.8-10.8) X10*3/uL RBC (4.60-5.80) X10*6/uL Hgb (14.0-18.0) g/dl Hct (42.0-52.0) % MCV (80.0-98.0) fL MCH (27.0-33.0) pg MCHC (31.0-36.0) g/dl RDW (11.0-16.0) % Plt Count (160-400) X10*3/uL MPV (9.4-12.4) fL Immature Gran % (Auto) (0.0-0.4) % Neut % (Auto) (45-73) % Lymph % (Auto) (20-40) % [place] % (Auto) (2-11) % Eos % (Auto) (0-4) % Baso % (Auto) (0-2) % Lymph # (Auto) (1.2-4.9) X10*3/uL [place] # (Auto) (0.1-1.2) X10*3/uL Eos # (Auto) (0.0-0.4) X10*3/uL Baso # (Auto) (0.0-0.2) X10*3/uL Abs Immat Gran (auto) (0.00-0.03) X10*3/uL Absolute Neuts (auto) (2.0-8.3) x10*3/uL Absolute Nucleated RBC (0.0-0.012) X10*3/uL Nucleated RBC % (auto) (0.0-0.2) /100WBC Sodium 139 (135-145) mmol/L Potassium 3.7 (3.3-5.1) mmol/L Chloride 97 (96-108) mmol/L Carbon Dioxide 28 (22-29) mmol/L Anion Gap 18 (12-20) BUN 22 H (9-16) mg/dL Creatinine 3.52 H (0.5-1.4) mg/dL Estim Creat Clear Calc 19.4 Estimated GFR 17 Random Glucose 155 H (60-115) mg/dL Lactic Acid (0.5-2.0) mmol/L Calcium 9.2 D (8.4-10.2) mg/dL Magnesium 1.9 (1.6-2.6) mg/dL Total Bilirubin 0.6 (0.0-1.0) mg/dL Direct Bilirubin 0.2 (0.0-0.5) mg/dL AST 24 (5-37) U/L ALT 18 (0-40) U/L Alkaline Phosphatase 118 H (39-117) U/L Total Protein 7.3 (6.5-8.0) g/dL Albumin 4.1 (3.5-5.0) g/dL Lipase 9 (8-78) U/L COVID-19 (DEISI) (Negative) COVID-19 Clin Com Independent Interpretation I performed an independent interpretation of an: CT Scan Radiology Impression Discussion of test interpretation with radiology: I have reviewed the radiologist's reading. Radiologist Impression: FINDINGS: LUNG BASES: There is marked cardiac enlargement with an enlarged right atria. Basilar atelectasis is present. Previously seen 6 mm right lower lobe pulmonary nodule is not included on this exam. LIVER, GALLBLADDER, AND BILIARY TREE: The liver is enlarged measuring 19.8 cm in greatest cephalocaudad dimension. Again noted is biliary ductal dilatation intrahepatic along with extrahepatic. The common bile duct is markedly dilated at 2.3 cm. No liver masses are seen on this noncontrast study. The previously seen echogenic mass seen in the right lobe of the liver and imaged on MRI is not appreciated on this exam. Some calcifications are seen around the right lobe of the liver, unchanged A pancreatic mass is again suspected. PANCREAS: Diffuse calcifications are present throughout the pancreas. As described above, pancreatic mass is suspected in the head of the pancreas causing biliary ductal dilatation and some dilatation of the pancreatic duct as seen previously. SPLEEN: Small accessory spleens are present.? ADRENAL GLANDS: Diffuse thickening of the left adrenal gland again noted measuring water density. The right adrenal gland is unremarkable. ? KIDNEYS AND URETERS: The right kidney is atrophic compared with the left and multiple benign simple cysts are present on the right. No further imaging or follow-up is needed. No solid renal masses are seen. No nephrolithiasis. No hydronephrosis.? BLADDER: Fairly empty with mild symmetric wall thickening? GASTROINTESTINAL TRACT: The small and large bowel are unremarkable. The appendix is unremarkable.? ABDOMINAL WALL: No significant hernia is appreciated.? LYMPH NODES: No gross retroperitoneal lymphadenopathy. There are some small periceliac, gastrohepatic ligament/aj hepatis lymph nodes. VASCULAR: Calcific plaque present in the aorta and iliofemoral vessels without aneurysm. PELVIC VISCERA: There is moderate BPH.? OSSEOUS STRUCTURES: Degenerative changes present at L5-S1? CT/CT abdomen pelvis wo IV con IMPRESSION: 1.? Redemonstration of biliary ductal dilatation. A pancreatic mass is again suspected. 2.? Other incidental findings as described above including marked cardiomegaly, thickened left adrenal gland, atrophic right kidney, BPH and degenerative changes L5-S1. ? Independent Historian Clinical information obtained from an independent historian. History obtained from or confirmed by: EMS Medications Administered Discontinued Medications Generic Name Dose Route Start Last Admin Trade Name Freq PRN Reason Stop Dose Admin Morphine Sulfate 4 mg 04/24/22 10:44 04/24/22 11:18 Morphine Sulfate 4 Mg/Ml Cartridge IVPUSH 04/24/22 10:45 4 mg ONCE ONE Administration Protocol Ondansetron HCl 4 mg 04/24/22 10:44 04/24/22 11:18 Ondansetron Hcl 4 Mg/2 Ml Vial IVPUSH 04/24/22 10:45 4 mg ONCE ONE Administration Oxycodone HCl 5 mg 04/24/22 13:20 04/24/22 13:38 Oxycodone Hcl Immed Release 5 Mg Tablet PO 04/24/22 13:21 5 mg ONCE ONE Administration Discharge Plan Discharge Clinical Impression: Pancreatic mass Patient Disposition: er [facility] Instructions: Pancreatic Cancer (DC) Additional Instructions: Patient needs to be followed up by vice president of instruction/oncologist for this pancreatic mass which is likely cancer Prescriptions: New oxycodone 5 mg tablet 5 mg PO Q4H PRN (Reason: pain) Qty: 8 0RF Rx Instructions: Partial Fill upon patient request. No Action atorvastatin 80 mg Tablet 40 mg PO BEDTIME acetaminophen 325 mg Tablet 650 mg PO Q6H PRN (Reason: Pain (Scale Score 1-3)) insulin glargine [Lantus U-100 Insulin] 100 unit/mL solution 8 unit subcut BEDTIME famotidine [Pepcid] 20 mg Tablet 20 mg PO MOWEFR@0600 bisacodyl 10 mg Suppository 10 mg [place] DAILY PRN (Reason: Constipation) sertraline 25 mg tablet 75 mg PO DAILY B complex-vitamin C-folic acid 0.8 mg Tablet 1 tab PO MOWEFR@0600 gabapentin 100 mg Capsule 100 mg PO TID Rx Instructions: GIVE AM DOSE BEFORE DIALYSIS ON DIALYSIS DAYS AY 0600 insulin lispro [Humalog U-100 Insulin] 100 unit/mL Solution 1 sliding scale dose SUBCUT TIDAC Protocol: Insulin Correction Scale Less than or equal to 110 ---- Give (units): 0 111 to 150 Give (units): 0 151 to 200 Give (units): 2 201 to 250 Give (units): 4 251 to 300 Give (units): 6 301 to 350 Give (units): 8 Greater than 350 Give (units): 10 Call MD if Blood Glucose > : 350 white petrolatum-mineral oil Cream 1 appl TOPICAL QID PRN (Reason: Dry Skin) ticagrelor 90 mg Tablet 90 mg PO MOWEFR@0900 ticagrelor 90 mg Tablet 90 mg PO SUTUTHSA@0900,2100 Zenpep 5,000-17,000- 24,000 unit capsule,delayed release(DR/EC) 1 cap PO SUTUTHSA@,,20 Zenpep 5,000-17,000- 24,000 unit capsule,delayed release(DR/EC) 1 cap PO MOWEFR@,,20 Glucagon (HCl) Emergency Kit 1 mg Recon Soln 1 mg SUBCUT Q5M PRN (Reason: LETHARGY, BS <110) Rx Instructions: until target blood sugar attained tizanidine 4 mg tablet 1 tab PO MOWEFR@599,,20 tizanidine 4 mg tablet 1 tab PO SUTUTHSA@0900,14,20 carvedilol 12.5 mg tablet 12.5 mg PO SUTUTHSA@10,18 nifedipine 60 mg Tablet Extended Release 60 mg PO SUTUTHSA@09,20 oxycodone 5 mg tablet 5 mg PO TID PRN (Reason: Pain, Moderate) Eliquis 2.5 mg tablet 2.5 mg PO SUTUTHSA@09,20 carvedilol 12.5 mg tablet 12.5 mg PO MOWEFR@18 docusate sodium 100 mg Capsule 100 mg PO MOWEFR@09 Combivent Respimat 20-100 mcg/actuation mist 1 puff inhalation QID Rx Instructions: GIVE FIRST DOSE OF THE DAY AT 0600 ON DIALYSIS DAYS, SPACE EVENLY THROUGHOUT THE DAY nifedipine 60 mg tablet extended release 60 mg PO DAILY@18 Eliquis 2.5 mg tablet 2.5 mg PO MOWEFR@1800 melatonin 3 mg Tablet 3 mg PO BEDTIME PRN (Reason: Sleep) famotidine 20 mg tablet 20 mg PO SUTUTHSA@0900 B complex-vitamin C-folic acid 0.8 mg Tablet 1 tab PO SUTUTHSA@09 polyethylene glycol 3350 17 gram Powder In Packet 17 g PO DAILY Qty: 14 0RF Fleet Enema 19-7 gram/118 mL Enema 133 ml WY DAILY PRN (Reason: Constipation) Qty: 1 0RF hydralazine 50 mg Tablet 100 mg PO TID Qty: 1 0RF Protocol: Hold for SBP< HOLD for SBP < : 90 clonidine [Cnhthagt-XYK-9] 0.3 mg/24 hr Patch Weekly 0.3 mg transdermal We@0900 Qty: 1 0RF Protocol: Hold for SBP< HOLD for SBP < : 90
[2022-04-24 11:18] VITALS: RESP 18
[2022-04-24 11:18] LABS: MANUAL DIFF FLAG NO
[2022-04-24] MEDS: ondansetron HCL 4 MG/2 ML VIAL IVPUSH (11:18)
[2022-04-24] MEDS: Morphine Sulfate 4 MG/ML CARTRIDGE IVPUSH (11:18)
[2022-04-24 11:21] LABS: Basophils Percent Auto 0.4 % (0-2); Eosinophils Absolute Auto 0.3 X10*3/uL (0.0-0.4); Eosinophils Percent Auto 5.4 % (0-4); Hematocrit 35.4 % (42.0-52.0); Hemoglobin 11.5 g/dl (14.0-18.0); Imm Gran Abs Auto 0.01 X10*3/uL (0.00-0.03); Imm Gran Pct Auto 0.2 % (0.0-0.4); Lymphocytes Absolute Auto 1.3 X10*3/uL (1.2-4.9); Lymphocytes Percent Auto 22.9 % (20-40); Mean Corpuscular HGB Conc 32.5 g/dl (31.0-36.0); Mean Corpuscular Hemoglobin 26.7 pg (27.0-33.0); Mean Corpuscular Volume 82.3 fL (80.0-98.0); Mean Platelet Volume 10.2 fL (9.4-12.4); Monocytes Absolute Auto 0.7 X10*3/uL (0.1-1.2); Monocytes Percent Auto 11.8 % (2-11); Neutrophils Absolute Auto 3.3 x10*3/uL (2.0-8.3); Neutrophils Percent Auto 59.3 % (45-73); Platelet Count 255 X10*3/uL (160-400); Red Cell Distribution Width 17.1 % (11.0-16.0); White Blood Count 5.5 X10*3/uL (4.8-10.8)
[2022-04-24 11:29] LABS: Lactic Acid 1.5 mmol/L (0.5-2.0)
[2022-04-24 11:37] LABS: COVID-19 Test Negative (Negative); IDNOW Serial# BCCEAD1C
[2022-04-24 12:43] LABS: Alanine Aminotransferase 18 U/L (0-40); Albumin Level 4.1 g/dL (3.5-5.0); Alkaline Phosphatase 118 U/L (39-117); Anion Gap 18 (12-20); Aspartate Amino Transferase 24 U/L (5-37); Bilirubin Direct 0.2 mg/dL (0.0-0.5); Bilirubin Total 0.6 mg/dL (0.0-1.0); Blood Urea Nitrogen 22 mg/dL (9-16); Calcium 9.2 mg/dL (8.4-10.2); Carbon Dioxide 28 mmol/L (22-29); Chloride 97 mmol/L (96-108); Creatinine Clr Calc Pharmacy 19.4; Estimated Glomerular Filt Rate 17; Glucose Random 155 mg/dL (60-115); Lipase 9 U/L (8-78); Magnesium 1.9 mg/dL (1.6-2.6); Potassium 3.7 mmol/L (3.3-5.1); Sodium 139 mmol/L (135-145); Total Protein 7.3 g/dL (6.5-8.0)
[2022-04-24 13:06] VITALS: BP 151/84; PULSE 95; RESP 18
[2022-04-24] MEDS: oxyCODONE HCl Immed Release 5 MG TABLET PO (13:38)
--- NOTE | 2022-04-24 13:46 | PC.NURSE ---
report given to margarita at [facility]
== END 2022-04-24 14:59 | disposition skilled nursing facility (03) ==
PROVIDERS: Nurse Practitioner Family; Emergency Provider Emergency Medicine; PCP Internal Medicine Nephrology
DX: K86.9 Disease of pancreas, unspecified (principal); R10.31 Right lower quadrant pain; Z20.822 Contact with and (suspected) exposure to COVID-19; I12.0 Hypertensive chronic kidney disease with stage 5 chronic kidney disease or end stage renal disease; E11.22 Type 2 diabetes mellitus with diabetic chronic kidney disease; N18.6 End stage renal disease; Z99.2 Dependence on renal dialysis; I48.91 Unspecified atrial fibrillation; Z79.01 Long term (current) use of anticoagulants; Z79.899 Other long term (current) drug therapy; Z87.891 Personal history of nicotine dependence
CPT/HCPCS: 36415; 74176; 80048; 80076; 83605; 83690; 83735; 85025; 87635; 93005; 96374; 96375; 99284; J2270; J2405

== ENCOUNTER 2022-04-26 09:09 | Emergency (ER) | payer MEDICARE, MEDICAID, SELFPAY ==
[2022-04-26] MEDS: HYDROmorphone HCl 0.5 MG/0.5 ML SYRINGE IVPUSH (09:34)
[2022-04-26 09:39] VITALS: BP 145/76; PULSE 87; RESP 18; TEMP 36.8; O2SAT 98; BMI 19.8
--- NOTE | 2022-04-26 09:42 | PC.NURSE ---
67 y/o M BIBA from HD with abd pain, pt non verbal at baseline lives at SNF. pt was seen here 3 days ago for same sx, labs drawn and sent, given dose of dilauded for pain. pt has known pancreatic mass.
[2022-04-26 09:46] LABS: MANUAL DIFF FLAG NO
[2022-04-26 09:52] LABS: Basophils Percent Auto 0.3 % (0-2); Eosinophils Absolute Auto 0.2 X10*3/uL (0.0-0.4); Eosinophils Percent Auto 2.3 % (0-4); Imm Gran Abs Auto 0.03 X10*3/uL (0.00-0.03); Imm Gran Pct Auto 0.4 % (0.0-0.4); Lymphocytes Absolute Auto 1.3 X10*3/uL (1.2-4.9); Lymphocytes Percent Auto 17.5 % (20-40); Mean Corpuscular HGB Conc 32.4 g/dl (31.0-36.0); Mean Corpuscular Hemoglobin 26.8 pg (27.0-33.0); Mean Corpuscular Volume 82.9 fL (80.0-98.0); Mean Platelet Volume 11.4 fL (9.4-12.4); Monocytes Absolute Auto 0.8 X10*3/uL (0.1-1.2); Monocytes Percent Auto 10.8 % (2-11); Neutrophils Percent Auto 68.7 % (45-73); Platelet Count 232 X10*3/uL (160-400); Red Cell Distribution Width 17.1 % (11.0-16.0); White Blood Count 7.3 X10*3/uL (4.8-10.8)
--- NOTE | 2022-04-26 12:16 | ED_ITS ---
HPI - General Adult General Chief complaint: General Medical Stated complaint: ABD PAIN FROM DIALYSIS/NOT FINISHED,SEEN RECENTLY Time Seen by Provider: 04/26/22 09:15 Source: family and EMS Mode of arrival: EMS Limitations: altered mental status and physical limitation History of Present Illness HPI narrative: 67 Year old male who resides in a SNF with a past medical history of CVA with right-sided hemiparesis, AFib, ESRD on dialysis, HTN, pulmonary hypertension, STEMI in the past, and new diagnosis pancreatic mass presents to the emergency department, by EMS from dialysis, for complaints left upper quadrant abdominal pain. Was seen in the emergency department 3 days ago for similar symptoms and was provided IV morphine with good effect on pain reduction. Difficult to obtain history from patient as he answers does not give detailed answers to questions. patient's sister contacted for additional HPI. She states he has a known pancreatic mass that was diagnosed in March has been causing him d iscomfort and that he has been refusing treatment or further oncology workup. She is unsure of any recent physical complaints. SNF contacted, and staff member states he is a poor historian at baseline and is unaware of any additional complaints other than abdominal pain. Onset (ago): month(s) Location: abdomen Radiation: non-radiation Severity: severe and similar to prior episodes Severity scale (1-10): 8 Quality: aching Pain Consistency: constant Relieving factors: medication Exacerbating factors: movement Associated symptoms: denies other symptoms Treatments prior to arrival: none Related Data Home Medications Medication Instructions Recorded Confirmed acetaminophen 325 mg tablet 650 mg PO Q6H PRN Pain (Scale 01/16/22 03/12/22 Score 1-3) atorvastatin 80 mg tablet 40 mg PO BEDTIME 01/16/22 03/12/22 bisacodyl 10 mg rectal suppository 10 mg SD DAILY PRN Constipation 01/16/22 03/12/22 famotidine 20 mg tablet (Pepcid) 20 mg PO MOWEFR@0600 01/16/22 03/12/22 gabapentin 100 mg capsule 100 mg PO TID 01/16/22 03/12/22 glucagon HCl 1 mg solution for 1 mg subcut Q5M PRN LETHARGY, BS 01/16/22 03/12/22 injection (Glucagon (HCl) <110 Emergency Kit) insulin glargine 100 unit/mL 8 unit subcut BEDTIME 01/16/22 03/11/22 subcutaneous solution (Lantus U-100 Insulin) insulin lispro 100 unit/mL 1 sliding scale dose subcut TIDAC 01/16/22 03/12/22 subcutaneous solution (Humalog U-100 Insulin) aklzhk-vwgnlwvy-textead 1 cap PO MOWEFR@06,14,20 01/16/22 03/12/22 5,000-17,000-24,000 unit capsule, delayed rel (Zenpep) xodkdh-baawxdzv-gmxktsg 1 cap PO SUTUTHSA@09,14,20 01/16/22 03/12/22 5,000-17,000-24,000 unit capsule, delayed rel (Zenpep) sertraline 25 mg tablet 75 mg PO DAILY 01/16/22 03/12/22 ticagrelor 90 mg tablet 90 mg PO MOWEFR@0900 01/16/22 03/12/22 ticagrelor 90 mg tablet 90 mg PO SUTUTHSA@0900,2100 01/16/22 03/12/22 tizanidine 4 mg tablet 1 tab PO MOWEFR@0600,14,20 01/16/22 03/12/22 tizanidine 4 mg tablet 1 tab PO SUTUTHSA@0900,14,20 01/16/22 03/12/22 vitamin B complex-vitamin C-folic 1 tab PO MOWEFR@0600 01/16/22 03/12/22 acid 0.8 mg tablet white petrolatum-mineral oil 1 appl topical QID PRN Dry Skin 01/16/22 03/12/22 topical cream apixaban 2.5 mg tablet (Eliquis) 2.5 mg PO SUTUTHSA@,20 03/11/22 03/12/22 carvedilol 12.5 mg tablet 12.5 mg PO SUTUTHSA@10,18 03/11/22 03/12/22 nifedipine 60 mg tablet,extended 60 mg PO SUTUTHSA@,03/11/22 03/12/22 release oxycodone 5 mg tablet 5 mg PO TID PRN Pain, Moderate 03/11/22 03/12/22 apixaban 2.5 mg tablet (Eliquis) 2.5 mg PO MOWEFR@1800 03/12/22 03/12/22 carvedilol 12.5 mg tablet 12.5 mg PO MOWEFR@18 03/12/22 03/12/22 docusate sodium 100 mg capsule 100 mg PO MOWEFR@03/12/22 03/12/22 famotidine 20 mg tablet 20 mg PO SUTUTHSA@0900 03/12/22 03/12/22 ipratropium 20 mcg-albuterol 100 1 puff inhalation QID 03/12/22 03/12/22 mcg/actuation mist for inhalation (Combivent Respimat) melatonin 3 mg tablet 3 mg PO BEDTIME PRN Sleep 03/12/22 03/12/22 nifedipine 60 mg tablet,extended 60 mg PO DAILY@18 03/12/22 03/12/22 release vitamin B complex-vitamin C-folic 1 tab PO SUTUTHSA@03/12/22 03/12/22 acid 0.8 mg tablet Previous Rx's Medication Instructions Recorded clonidine 0.3 mg/24 hr weekly 0.3 mg transdermal We@0900 #1 ea 03/15/22 transdermal patch (Hijdluir-BDP-6) hydralazine 50 mg tablet 100 mg PO TID #1 tab 03/15/22 polyethylene glycol 3350 17 gram 17 g PO DAILY #14 ea 03/15/22 oral powder packet sodium phosphates 19 gram-7 133 ml SD DAILY PRN Constipation 03/15/22 gram/118 mL enema (Fleet Enema) #1 mL oxycodone 5 mg tablet 5 mg PO Q4H PRN pain #8 tabs 04/24/22 oxycodone 5 mg tablet 5 mg PO Q4H PRN pain 2 days #12 04/26/22 tabs Allergies Allergy/AdvReac Type Severity Reaction Status Date / Time No Known Allergies Allergy Verified 09/28/21 08:34 Review of Systems Review of Systems: Yes Unobtainable due to mental status [facility] Past Medical History Source: old records reviewed Medical History Acute CVA (cerebrovascular accident) Afib Anemia BPH (benign prostatic hyperplasia) Chronic back pain End stage renal disease on dialysis ESRD (end stage renal disease) HTN (hypertension) Opiate dependence Pneumothorax Pulmonary hypertension STEMI (ST elevation myocardial infarction) Surgical History H/O splenectomy Hx of cholecystectomy Social History Social History Household Members: None Housing: Longterm Do you presently have visiting nurse or other home services: No Alcohol intake: former Patient Tobacco Use Status: Former Tobacco user Advance Directives: Yes Advance Directives Information Provided: No Advance Directives on File: No Physical Exam ED Vital Signs: Vital Signs - 24 hr 04/26/22 09:39 Temperature 98.2 F Pulse Rate 87 Respiratory Rate 18 Blood Pressure 145/76 H Pulse Oximetry 98 Oxygen Delivery Method Room Air BMI result Body Mass Index 19.8 Nursing notes and vital signs reviewed. GENERAL APPEARANCE: Alert and oriented to self, appears older than stated age, no acute distress HENMT: Normal to inspection, atraumatic, face symmetrical. Normal external ears, nose, and oropharynx clear. EYE: PERRLA, EOM intact, structures appear normal NECK: Supple without lymphadenopathy. No stiffness or restricted ROM. CHEST: Normal to inspection HEART: Normal rate and regular rhythm, normal S1/S2, no M/R/G LUNGS: LS CTA, moving air well. No crackles, wheezes, or rhonchi auscultated ABDOMEN: Soft, tender in LUQ, nondistended. Normal bowel sounds noted BACK: No CVAT, no obvious deformity EXTREMITIES: Moving all extremities without difficulty. No cyanosis, clubbing, or edema. Normal capillary refill. NEUROLOGICAL: Alert and oriented to self, moving all 4 extremities with equal strength. CN not formally tested but appearing grossly intact. Observed to ambulate with normal gait. Cognition normal SKIN: Warm and dry without any lesions, rash, or visible sores Course Course Course Narrative: 929: Plan for labs and pain control with IVP dilaudid 1130: Spoke with pt's sister regarding plan for pt related to pancreatic mass and pain control. Sister states she will speak with her brother tomorrow to talk about his plans and contact Raven Diaz in the morning to set up further on cology workup and management. Plan for pain control in ED and discharge back to SNF Medications Administered Discontinued Medications Generic Name Dose Route Start Last Admin Trade Name Freq PRN Reason Stop Dose Admin Hydromorphone HCl 0.5 mg 04/26/22 09:20 04/26/22 09:34 Hydromorphone Hcl 0.5 Mg/0.5 Ml Syringe IVPUSH 04/26/22 09:21 0.5 mg ONCE ONE Administration Protocol Medical Decision Making Medical Decision Making [facility] Narrative: 67 Year old male who resides in a SNF with a past medical history of CVA with right-sided hemiparesis, AFib, ESRD on dialysis, HTN, pulmonary hypertension, STEMI in the past, and new diagnosis of pancreatic mass presents to the emergency department, by EMS from dialysis, for complaints left upper quadrant abdominal pain. IV Dilaudid given with good reduction in discomfort. Blood work improved from last lab draw done on 04/24/2022. No changes noted in pancreatic or liver function, no need for repeat imaging at this time. Abdomen is soft, tender in left upper quadrant only, with good bowel sounds. Patient answers yes and no questions only. Does not answer questions regarding need for further care or workup to regarding his pancreatic mass and right upper quadrant pain. Patient seen ambulating through hallways without difficulty. History, physical exam, and blood work consistent with pain secondary to pancreatic mass. Low suspicion for acute abdomen, ACS, PE, SBO. Patient's sister states he has not made effort to contact Oncology regarding his pancreatic mass. She states she was speak to him tomorrow regarding his plans for tear and speak to Raven Velasquez to set up further workup. Oxycodone 5 mg q.4 hours sent to SNF for management of pain. This is an increase to his typical dose of oxycodone 3 times a day. Spoke with SNF regarding increased oxycodone when to return to the hospital. Lab Data [facility] Lab Attestation statement: I reviewed the patient's lab results. 04/26/22 09:41 04/26/22 11:46 Labs: Lab Results 04/26/22 04/26/22 Range/Units 09:41 11:46 WBC 7.3 (4.8-10.8) X10*3/uL RBC 4.10 L (4.60-5.80) X10*6/uL Hgb 11.0 L (14.0-18.0) g/dl Hct 34.0 L (42.0-52.0) % MCV 82.9 (80.0-98.0) fL MCH 26.8 L (27.0-33.0) pg MCHC 32.4 (31.0-36.0) g/dl RDW 17.1 H (11.0-16.0) % Plt Count 232 (160-400) X10*3/uL MPV 11.4 (9.4-12.4) fL Immature Gran % (Auto) 0.4 (0.0-0.4) % Neut % (Auto) 68.7 (45-73) % Lymph % (Auto) 17.5 L (20-40) % [place]estone % (Auto) 10.8 (2-11) % Eos % (Auto) 2.3 (0-4) % Baso % (Auto) 0.3 (0-2) % Lymph # (Auto) 1.3 (1.2-4.9) X10*3/uL [place] # (Auto) 0.8 (0.1-1.2) X10*3/uL Eos # (Auto) 0.2 (0.0-0.4) X10*3/uL Baso # (Auto) 0.0 (0.0-0.2) X10*3/uL Abs Immat Gran (auto) 0.03 (0.00-0.03) X10*3/uL Absolute Neuts (auto) 5.0 (2.0-8.3) x10*3/uL Absolute Nucleated RBC 0.000 (0.0-0.012) X10*3/uL Nucleated RBC % (auto) 0.0 (0.0-0.2) /100WBC Sodium 138 (135-145) mmol/L Potassium 3.6 (3.3-5.1) mmol/L Chloride 94 L (96-108) mmol/L Carbon Dioxide 29 (22-29) mmol/L Anion Gap 19 (12-20) BUN 26 H (9-16) mg/dL Creatinine 3.52 H (0.5-1.4) mg/dL Estim Creat Clear Calc 16.9 Estimated GFR 17 Random Glucose 199 H (60-115) mg/dL Calcium 9.9 D (8.4-10.2) mg/dL Magnesium 1.9 (1.6-2.6) mg/dL Total Bilirubin 0.8 (0.0-1.0) mg/dL Direct Bilirubin 0.3 (0.0-0.5) mg/dL AST 29 (5-37) U/L ALT 25 (0-40) U/L Alkaline Phosphatase 109 (39-117) U/L Total Protein 7.5 (6.5-8.0) g/dL Albumin 4.2 (3.5-5.0) g/dL Lipase 12 (8-78) U/L Discharge Plan Discharge Clinical Impression: Pancreatic mass, Abdominal pain Patient Disposition: er [facility] Transfer Details: BACK TO [facility] IN [place] WITH [facility] Instructions: Abdominal Pain (ED) Additional Instructions: Prescription provided discharge instructions for oxycodone 5 mg every 4 hours p.r.n. for management abdominal pain. this should be an increase from the oxycodone 3 times a day. Please follow-up with [facility] at [address] [place] [address] [phone] for further treatment and management related to pancreatic mass. Prescriptions: New oxycodone 5 mg tablet 5 mg PO Q4H PRN (Reason: pain) 2 Days Qty: 12 0RF Rx Instructions: Partial Fill upon patient request. No Action atorvastatin 80 mg Tablet 40 mg PO BEDTIME acetaminophen 325 mg Tablet 650 mg PO Q6H PRN (Reason: Pain (Scale Score 1-3)) insulin glargine [Lantus U-100 Insulin] 100 unit/mL solution 8 unit subcut BEDTIME famotidine [Pepcid] 20 mg Tablet 20 mg PO MOWEFR@0600 bisacodyl 10 mg Suppository 10 mg SD DAILY PRN (Reason: Constipation) sertraline 25 mg tablet 75 mg PO DAILY B complex-vitamin C-folic acid 0.8 mg Tablet 1 tab PO MOWEFR@0600 gabapentin 100 mg Capsule 100 mg PO TID Rx Instructions: GIVE AM DOSE BEFORE DIALYSIS ON DIALYSIS DAYS AY 0600 insulin lispro [Humalog U-100 Insulin] 100 unit/mL Solution 1 sliding scale dose SUBCUT TIDAC Protocol: Insulin Correction Scale Less than or equal to 110 ---- Give (units): 0 111 to 150 Give (units): 0 151 to 200 Give (units): 2 201 to 250 Give (units): 4 251 to 300 Give (units): 6 301 to 350 Give (units): 8 Greater than 350 Give (units): 10 Call MD if Blood Glucose > : 350 white petrolatum-mineral oil Cream 1 appl TOPICAL QID PRN (Reason: Dry Skin) ticagrelor 90 mg Tablet 90 mg PO MOWEFR@0900 ticagrelor 90 mg Tablet 90 mg PO SUTUTHSA@0900,2100 Zenpep 5,000-17,000- 24,000 unit capsule,delayed release(DR/EC) 1 cap PO SUTUTHSA@09,14,20 Zenpep 5,000-17,000- 24,000 unit capsule,delayed release(DR/EC) 1 cap PO MOWEFR@06,14,20 Glucagon (HCl) Emergency Kit 1 mg Recon Soln 1 mg SUBCUT Q5M PRN (Reason: LETHARGY, BS <110) Rx Instructions: until target blood sugar attained tizanidine 4 mg tablet 1 tab PO MOWEFR@0600,14,20 tizanidine 4 mg tablet 1 tab PO SUTUTHSA@0900,14,20 carvedilol 12.5 mg tablet 12.5 mg PO SUTUTHSA@10,18 nifedipine 60 mg Tablet Extended Release 60 mg PO SUTUTHSA@09,20 oxycodone 5 mg tablet 5 mg PO TID PRN (Reason: Pain, Moderate) Eliquis 2.5 mg tablet 2.5 mg PO SUTUTHSA@09,20 carvedilol 12.5 mg tablet 12.5 mg PO MOWEFR@18 docusate sodium 100 mg Capsule 100 mg PO MOWEFR@09 Combivent Respimat 20-100 mcg/actuation mist 1 puff inhalation QID Rx Instructions: GIVE FIRST DOSE OF THE DAY AT 0600 ON DIALYSIS DAYS, SPACE EVENLY THROUGHOUT THE DAY nifedipine 60 mg tablet extended release 60 mg PO DAILY@18 Eliquis 2.5 mg tablet 2.5 mg PO MOWEFR@1800 melatonin 3 mg Tablet 3 mg PO BEDTIME PRN (Reason: Sleep) famotidine 20 mg tablet 20 mg PO SUTUTHSA@0900 B complex-vitamin C-folic acid 0.8 mg Tablet 1 tab PO SUTUTHSA@09 polyethylene glycol 3350 17 gram Powder In Packet 17 g PO DAILY Qty: 14 0RF Fleet Enema 19-7 gram/118 mL Enema 133 ml SD DAILY PRN (Reason: Constipation) Qty: 1 0RF hydralazine 50 mg Tablet 100 mg PO TID Qty: 1 0RF Protocol: Hold for SBP< HOLD for SBP < : 90 clonidine [Vvngiuoj-WCS-5] 0.3 mg/24 hr Patch Weekly 0.3 mg transdermal We@0900 Qty: 1 0RF Protocol: Hold for SBP< HOLD for SBP < : 90 oxycodone 5 mg tablet 5 mg PO Q4H PRN (Reason: pain) Qty: 8 0RF Rx Instructions: Partial Fill upon patient request. Interventions: ED Discharge Assessment Last Done: 04/26/22 12:04 Discharge Date/Time: 04/26/22 13:02
[2022-04-26 12:20] LABS: Alanine Aminotransferase 25 U/L (0-40); Albumin Level 4.2 g/dL (3.5-5.0); Alkaline Phosphatase 109 U/L (39-117); Anion Gap 19 (12-20); Aspartate Amino Transferase 29 U/L (5-37); Bilirubin Direct 0.3 mg/dL (0.0-0.5); Bilirubin Total 0.8 mg/dL (0.0-1.0); Blood Urea Nitrogen 26 mg/dL (9-16); Calcium 9.9 mg/dL (8.4-10.2); Carbon Dioxide 29 mmol/L (22-29); Chloride 94 mmol/L (96-108); Creatinine Clr Calc Pharmacy 16.9; Estimated Glomerular Filt Rate 17; Glucose Random 199 mg/dL (60-115); Magnesium 1.9 mg/dL (1.6-2.6); Potassium 3.6 mmol/L (3.3-5.1); Sodium 138 mmol/L (135-145); Total Protein 7.5 g/dL (6.5-8.0)
--- NOTE | 2022-04-26 12:21 | PC.NURSE ---
report given to facility, ambulance booked
[2022-04-26 12:32] LABS: Lipase 12 U/L (8-78)
== END 2022-04-26 13:02 ==
PROVIDERS: Nurse Practitioner Family; Emergency Provider Emergency Medicine; PCP Internal Medicine Nephrology
DX: K86.89 Other specified diseases of pancreas (principal); R10.12 Left upper quadrant pain; E11.22 Type 2 diabetes mellitus with diabetic chronic kidney disease; I12.0 Hypertensive chronic kidney disease with stage 5 chronic kidney disease or end stage renal disease; N18.6 End stage renal disease; Z99.2 Dependence on renal dialysis; I48.91 Unspecified atrial fibrillation; I69.351 Hemiplegia and hemiparesis following cerebral infarction affecting right dominant side; F11.20 Opioid dependence, uncomplicated; Z79.02 Long term (current) use of antithrombotics/antiplatelets; Z79.899 Other long term (current) drug therapy; Z79.4 Long term (current) use of insulin; Z79.01 Long term (current) use of anticoagulants; Z87.891 Personal history of nicotine dependence
CPT/HCPCS: 36415; 80053; 82248; 83690; 83735; 85025; 96374; 99283; 99284; J1170